=== PATIENT | female | born 1965 | race Caucasian/White ===

== ENCOUNTER 2019-04-29 14:00 | Inpatient (IN) | payer BC, OTHER ==
[~2019-04-29] VITALS: Ht 157.5 cm; Wt 66.4 kg
[2019-04-29 14:29] LABS: BASO # 0.1 x10^3/uL (0.0-0.2); BASO % 1 % (0-3); EOS # 0.1 x10^3/uL (0.0-0.7); EOS % 1 % (0-3); HEMATOCRIT 38.1 % (36.0-47.0); HEMOGLOBIN 12.5 g/dL (12.0-15.5); LYMPH # 1.7 x10^3/uL (1.0-4.8); LYMPH % 23 % (24-48); MEAN CORPUSCULAR HEMOGLOBIN 27 pg (25-35); MEAN CORPUSCULAR HGB CONC 33 g/dL (31-37); MEAN CORPUSCULAR VOLUME 81 fL (79-100); MONO # 0.5 x10^3/uL (0.0-1.1); MONO % 7 % (0-9); NEUT # 4.9 x10^3/uL (1.8-7.7); NEUT % 68 % (31-73); PLATELET COUNT 318 x10^3/uL (140-400); RED BLOOD COUNT 4.73 x10^6/uL (3.50-5.40); RED CELL DISTRIBUTION WIDTH 17.3 % (11.5-14.5); WHITE BLOOD COUNT 7.2 x10^3/uL (4.0-11.0)
[2019-04-29] MEDS ORDERED: ASPIRIN 325 MG TABLET PO ONE (14:30)
[2019-04-29] MEDS ORDERED: NITROGLYCERIN SUBLINGUAL 0.4 MG BOTTLE OF 25. SL PRN (14:30)
[2019-04-29] MEDS ORDERED: MORPHINE SULFATE 4 MG/ML VIAL. IV/SQ PRN (14:30)
[2019-04-29] MEDS ORDERED: FAMOTIDINE 20 MG/2 ML VIAL IVP ONE (14:30)
[2019-04-29 14:45] LABS: CALCIUM 9.5 mg/dL (8.5-10.1); CREATININE 0.9 mg/dL (0.6-1.0); GFR 65.5; POTASSIUM 3.7 mmol/L (3.5-5.1)
[2019-04-29 14:46] LABS: PROTHROMBIN TIME PATIENT 12.9 SEC (11.7-14.0)
[2019-04-29 14:52] LABS: ALBUMIN 4.4 g/dL (3.4-5.0); ALBUMIN/GLOBULIN RATIO 1.1 (1.0-1.7); MAGNESIUM 2.3 mg/dL (1.8-2.4); TOTAL BILIRUBIN 0.5 mg/dL (0.2-1.0); TOTAL PROTEIN 8.3 g/dL (6.4-8.2)
[2019-04-29] MEDS ORDERED: LABETALOL 20 MG/4 ML DISP.SYRIN. IVP ONE (15:00)
[2019-04-29] MEDS ORDERED: cloNIDine HCL 0.1 MG TABLET PO ONE (15:00)
--- NOTE | 2019-04-29 15:01 | RAD ---
INDICATION: Chest pain COMPARISON: January 19, 2005 FINDINGS: Single view of chest obtained. Cardiac silhouette is similar to prior. Calcified nodule in the left midlung is again seen. Could be calcified granuloma. No new region of consolidation. IMPRESSION: * No focal airspace consolidation or edema. Electronically signed by: Taiwo Dominguez MD (04/29/2019 2:58 PM) [facility] – [place]
[2019-04-29 15:08] LABS: BILIRUBIN,URINE NEGATIVE (NEG); CLARITY,URINE CLEAR; COLOR,URINE YELLOW; NITRITE,URINE NEGATIVE (NEG); PROTEIN,URINE NEGATIVE (NEG-TRACE); UROBILINOGEN,URINE 0.2 mg/dL (0.2 mg/dL)
--- NOTE | 2019-04-29 15:20 | RAD ---
INDICATION: High blood pressure COMPARISON: None. TECHNIQUE: Axial CT images obtained through the head without intravenous contrast. One or more of the following individualized dose reduction techniques were utilized for this examination: 1. Automated exposure control; 2. Adjustment of the mA and/or kV according to patient size; 3. Use of iterative reconstruction technique. FINDINGS: No intracranial hemorrhage. No midline shift. Basal cisterns patent. Ventricles and sulci are unremarkable. No acute osseous abnormality. Orbits and paranasal sinuses unremarkable. IMPRESSION: * No acute intracranial hemorrhage. Electronically signed by: Taiwo Dominguez MD (04/29/2019 3:17 PM) [facility] [place]
[2019-04-29 15:22] LABS: BARBITURATES NEG (NEG); BENZODIAZEPINES NEG (NEG); CANNABINOIDS NEG (NEG); COCAINE NEG (NEG); METHADONE NEG (NEG); OPIATES NEG (NEG); PHENCYCLIDINE NEG (NEG)
[2019-04-29 15:23] LABS: AMPHETAMINE/METHAMPHETAMINE NEG (NEG)
[2019-04-29 15:26] LABS: HYALINE CASTS, URINE FEW /HPF; SQUAMOUS EPITHELIAL CELL,UR MOD /LPF
[2019-04-29 15:27] LABS: AMORPHOUS SEDIMENT,UR PRESENT /HPF; BACTERIA,URINE 0 /HPF (0-FEW)
--- NOTE | 2019-04-29 15:32 | PHYS DOC ---
Past Medical History Past Medical History: No Pertinent History, GERD, Hypertension Past Surgical History: Tubal ligation Smoking Status: Current Every Day Smoker Additional Information: 1 ppd Alcohol Use: Heavy Additional Information: reports drinking 12 pack beer per week Drug Use: None Adult General Chief Complaint Chief Complaint: CHEST PAIN HPI HPI Patient is a 53 year old female with a history of self diagnosed acid reflex, hypertension-uncontrolled, hypertension, who presents to the ED today complaining of 2 out of 10 substernal chest pain radiating to bilateral chest into the left neck, symptoms began yesterday. Patient reports it felt like a grabbing pain, she states she took hzhm-fyg-[id number] antiacids with no relief. Patient reports symptoms are worse on exertion. Denies anything specifically relieving the symptoms. 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 Review of Systems Review of Systems Constitutional: Denies fever or chills [] Eyes: Denies change in visual acuity, redness, or eye pain [] HENT: Denies nasal congestion or sore throat [] Respiratory: Denies cough or shortness of breath [] Cardiovascular: Reports chest pain. GI: Denies abdominal pain, nausea, vomiting, bloody stools or diarrhea [] : Denies dysuria or hematuria [] Musculoskeletal: Denies back pain or joint pain [] Integument: Denies rash or skin lesions [] Neurologic: Denies headache, focal weakness or sensory changes [] All other systems were reviewed and found to be within normal limits, except as documented in this note. Current Medications Current Medications Current Medications Medications (Trade) Dose Ordered Sig/Maureen Start Time Stop Time Status Last Admin Dose Admin Aspirin (Agustin Aspirin) 325 mg 1X ONCE 04/29/19 14:30 04/29/19 14:32 DC 04/29/19 14:32 325 MG Clonidine HCl (Catapres) 0.2 mg 1X ONCE 04/29/19 15:00 04/29/19 15:01 DC 04/29/19 14:50 0.2 MG Famotidine (Pepcid Vial) 20 mg 1X ONCE 04/29/19 14:30 04/29/19 14:32 DC 04/29/19 14:32 20 MG Labetalol HCl (Normodyne Iv Push) 10 mg 1X ONCE 04/29/19 15:00 04/29/19 15:01 DC 04/29/19 14:51 10 MG Morphine Sulfate (Morphine Sulfate) 4 mg PRN Q15MIN PRN 04/29/19 14:30 04/30/19 14:29 Nitroglycerin (Nitrostat) 0.4 mg PRN Q5MIN PRN 04/29/19 14:30 04/30/19 14:29 04/29/19 14:33 0.4 MG Allergies Allergies Allergies Coded Allergies Type Severity Reaction Last Updated Verified No Known Drug Allergies 04/29/19 No Physical Exam Physical Exam Constitutional: Well developed, well nourished, no acute distress, non-toxic appearance. [] HENT: Normocephalic, atraumatic, bilateral external ears normal, oropharynx moist, no oral exudates, nose normal. [] Eyes: PERRLA, EOMI, conjunctiva normal, no discharge. [] Neck: Normal range of motion, no tenderness, supple, no stridor. [] Cardiovascular:Heart rate regular rhythm, no murmur [] Lungs & Thorax: Bilateral breath sounds clear to auscultation [] Abdomen: Bowel sounds normal, soft, no tenderness, no masses, no pulsatile masses. [] Skin: Warm, dry, no erythema, no rash. [] Back: No tenderness, no CVA tenderness. [] Extremities: No tenderness, no cyanosis, no clubbing, ROM intact, no edema. [] Neurologic: Alert and oriented X 3, normal motor function, normal sensory function, no focal deficits noted. [] Psychologic: Affect normal, judgement normal, mood normal. [] Current Patient Data Vital Signs Vital Signs Date Time Temp Pulse Resp B/P (MAP) Pulse Ox O2 Delivery O2 Flow Rate FiO2 04/29/19 15:27 58 15 157/77 (103) 97 Room Air 04/29/19 14:05 98.0 98.0 Lab Values Laboratory Tests Test 04/29/19 14:20 04/29/19 14:57 White Blood Count 7.2 x10^3/uL (4.0-11.0) Red Blood Count 4.73 x10^6/uL (3.50-5.40) Hemoglobin 12.5 g/dL (12.0-15.5) Hematocrit 38.1 % (36.0-47.0) Mean Corpuscular Volume 81 fL (79-100) Mean Corpuscular Hemoglobin 27 pg (25-35) Mean Corpuscular Hemoglobin Concent 33 g/dL (31-37) Red Cell Distribution Width 17.3 % (11.5-14.5) H Platelet Count 318 x10^3/uL (140-400) Neutrophils (%) (Auto) 68 % (31-73) Lymphocytes (%) (Auto) 23 % (24-48) L Monocytes (%) (Auto) 7 % (0-9) Eosinophils (%) (Auto) 1 % (0-3) Basophils (%) (Auto) 1 % (0-3) Neutrophils # (Auto) 4.9 x10^3/uL (1.8-7.7) Lymphocytes # (Auto) 1.7 x10^3/uL (1.0-4.8) Monocytes # (Auto) 0.5 x10^3/uL (0.0-1.1) Eosinophils # (Auto) 0.1 x10^3/uL (0.0-0.7) Basophils # (Auto) 0.1 x10^3/uL (0.0-0.2) Prothrombin Time 12.9 SEC (11.7-14.0) Prothrombin Time INR 1.0 (0.8-1.1) Sodium Level 139 mmol/L (136-145) Potassium Level 3.7 mmol/L (3.5-5.1) Chloride Level 101 mmol/L (98-107) Carbon Dioxide Level 25 mmol/L (21-32) Anion Gap 13 (6-14) Blood Urea Nitrogen 8 mg/dL (7-20) Creatinine 0.9 mg/dL (0.6-1.0) Estimated GFR (Cockcroft-Gault) 65.5 BUN/Creatinine Ratio 9 (6-20) Glucose Level 121 mg/dL (70-99) H Calcium Level 9.5 mg/dL (8.5-10.1) Magnesium Level 2.3 mg/dL (1.8-2.4) Total Bilirubin 0.5 mg/dL (0.2-1.0) Aspartate Amino Transferase (AST) 41 U/L (15-37) H Alanine Aminotransferase (ALT) 45 U/L (14-59) Alkaline Phosphatase 112 U/L (46-116) Creatine Kinase 208 U/L (26-192) H Creatine Kinase MB (Mass) 1.4 ng/mL (0.0-3.6) Creatine Kinase MB Relative Index 0.7 % (0-4) Troponin I Quantitative 0.025 ng/mL (0.000-0.055) IY-Fzd-G-Type Natriuretic Peptide 486 pg/mL (0-124) H Total Protein 8.3 g/dL (6.4-8.2) H Albumin 4.4 g/dL (3.4-5.0) Albumin/Globulin Ratio 1.1 (1.0-1.7) Thyroid Stimulating Hormone (TSH) 38.951 uIU/mL (0.358-3.74) H Urine Collection Type Unknown Urine Color Yellow Urine Clarity Clear Urine pH 7.0 Urine Specific [place] <=1.005 Urine Protein Negative mg/dL (NEG-TRACE) Urine Glucose (UA) Negative mg/dL (NEG) Urine Ketones (Stick) Negative mg/dL (NEG) Urine Blood Negative (NEG) Urine Nitrite Negative (NEG) Urine Bilirubin Negative (NEG) Urine Urobilinogen Dipstick 0.2 mg/dL (0.2 mg/dL) Urine Leukocyte Esterase Negative (NEG) Urine RBC 1-2 /HPF (0-2) Urine WBC 1-4 /HPF (0-4) Urine Squamous Epithelial Cells Mod /LPF Urine Amorphous Sediment Present /HPF Urine Bacteria 0 /HPF (0-FEW) Urine Hyaline Casts Few /HPF Urine Mucus Slight /LPF Urine Opiates Screen Neg (NEG) Urine Methadone Screen Neg (NEG) Urine Barbiturates Neg (NEG) Urine Phencyclidine Screen Neg (NEG) Urine Amphetamine/Methamphetamine Neg (NEG) Urine Benzodiazepines Screen Neg (NEG) Urine Cocaine Screen Neg (NEG) Urine Cannabinoids Screen Neg (NEG) Urine Ethyl Alcohol Neg (NEG) Laboratory Tests 04/29/19 14:20 Laboratory Tests 04/29/19 14:20 EKG EKG [address] Dilma francisco [facility] HR 65 no STEMI[] Radiology/Procedures Radiology/Procedures []PROCEDURE: CT HEAD WO CONTRAST INDICATION: High blood pressure COMPARISON: None. TECHNIQUE: Axial CT images obtained through the head without intravenous contrast. One or more of the following individualized dose reduction techniques were utilized for this examination: 1. Automated exposure control; 2. Adjustment of the mA and/or kV according to patient size; 3. Use of iterative reconstruction technique. FINDINGS: No intracranial hemorrhage. No midline shift. Basal cisterns patent. Ventricles and sulci are unremarkable. No acute osseous abnormality. Orbits and paranasal sinuses unremarkable. IMPRESSION: * No acute intracranial hemorrhage. Electronically signed by: Spike Gama MD (04/29/2019 3:17 PM) [facility] – [place] DICTATED and SIGNED BY: SPIKE GAMA MD DATE: 04/29/19 7667 PROCEDURE: PORTABLE CHEST 1V INDICATION: Chest pain COMPARISON: January 19, 2005 FINDINGS: Single view of chest obtained. Cardiac silhouette is similar to prior. Calcified nodule in the left midlung is again seen. Could be calcified granuloma. No new region of consolidation. IMPRESSION: * No focal airspace consolidation or edema. Electronically signed by: Spike Gama MD (04/29/2019 2:58 PM) [facility] [place] DICTATED and SIGNED BY: SPIKE GAMA MD DATE: 04/29/19 1478 Course & Med Decision Making Course & Med Decision Making Pertinent Labs and Imaging studies reviewed. (See chart for details) This is a 65-year-old female patient presenting to the ED today with complaints of chest pain that began yesterday. Patient is a smoker, advised to consider smoking cessation. Patient arrives in the ED with blood pressure of 252/117 with a heart rate of 66, hx of hypertension but not on any medications. CT of the head is negative, chest x-ray is negative. Cardiac workup is essentially negative. TSH 38.951. Patient was given nitroglycerin, labetalol and clonidine. Blood pressures come down to 150/77. Spoke with Annel TUCKER for cardiology who will follow-up with patient. Spoke with Dr. Celeste who accepted patient for admission Dragon Disclaimer Dragon Disclaimer This electronic medical record was generated, in whole or in part, using a voice recognition dictation system. The HEART Score for CP Pts HEART Score for Chest Pain: HEART Score for Chest Pain Response (Comments) Value History Slighlty/Non-Suspicious 0 ECG Normal 0 Age >45 - < 65 1 Risk Factors 1 or 2 Risk Factors 1 Troponin < Normal Limit 0 Total 2 Risk Factors: Risk Factors: DM, Current or recent (<one month) smoker, HTN, HLP, family history of CAD, obesity. Risk Scores: Score 0 - 3: 2.5% MACE over next 6 weeks - Discharge Home Score 4 - 6: 20.3% MACE over next 6 weeks - Admit for Clinical Observation Score 7 - 10: 72.7% MACE over next 6 weeks - Early Invasive Strategies Departure Departure Impression: Primary Impression: Chest pain Additional Impressions: Smoking addiction Hypothyroidism Accelerated hypertension Disposition: 09 ADMITTED INPATIENT Condition: STABLE Referrals: NO PCP (PCP) Problem Qualifiers Primary Impression: Chest pain Chest pain type: unspecified Qualified Codes: R07.9 - Chest pain, unspecified Additional Impressions: Hypothyroidism Hypothyroidism type: unspecified Qualified Codes: E03.9 - Hypothyroidism, unspecified SHERYL FERGUSON CONTACT ASSEMBLER Apr 29, 2019 15:32
--- NOTE | 2019-04-29 15:33 | PDOC1 ---
History and Physical Date of Admission Date of Admission DATE: 04/29/19 TIME: 15:33 Identification/Chief Complaint Chief Complaint seen in er with chest pain, 53 year old female with a history of self diagnosed acid reflex, hypertension-uncontrolled, hypertension, presents to the ED today complaining of 2 out of 10 substernal chest pain radiating to bilateral chest into the left neck, symptoms began yesterday. she states she took polm-zhn-rriwrqo antiacids with no relief. symptoms are worse on exertion. Denies anything specifically relieving the s ymptoms. troponin i elevated, started on heparin drip protocol in ER Past Medical History Past Medical History Past Medical History Past Medical History: No Pertinent History, GERD, Hypertension Past Surgical History: Tubal ligation Smoking Status: Current Every Day Smoker Additional Information: 1 ppd Alcohol Use: Heavy Additional Information: reports drinking 12 pack beer per week Drug Use: None FHX HTN Cardiovascular: HTN Psych: Addictions Family History Family History younger brother had CABG Family History: Heart Disease, High Cholestrol, Hypertension Social History Smoke: 1 pack per day ALCOHOL: heavy Drugs: None Current Problem List Problem List Problems Medical Problems: (1) Chest pain Status: Acute Current Medications Current Medications Current Medications Aspirin (Agustin Aspirin) 325 mg 1X ONCE PO Last administered on 04/29/19at 14:32; Start 04/29/19 at 14:30; Stop 04/29/19 at 14:32; Status DC Nitroglycerin (Nitrostat) 0.4 mg PRN Q5MIN PRN SL CP RATING > 1/10 Last administered on 04/29/19at 14:33; Start 04/29/19 at 14:30; Stop 04/30/19 at 14:29 Morphine Sulfate (Morphine Sulfate) 4 mg PRN Q15MIN PRN IV/SQ PAIN GREATER THAN 3/10; Start 04/29/19 at 14:30; Stop 04/30/19 at 14:29 Famotidine (Pepcid Vial) 20 mg 1X ONCE IVP Last administered on 04/29/19at 14:32; Start 04/29/19 at 14:30; Stop 04/29/19 at 14:32; Status DC Labetalol HCl (Normodyne Iv Push) 10 mg 1X ONCE IVP Last administered on 04/29/19at 14:51; Start 04/29/19 at 15:00; Stop 04/29/19 at 15:01; Status DC Clonidine HCl (Catapres) 0.2 mg 1X ONCE PO Last administered on 04/29/19at 14:50; Start 04/29/19 at 15:00; Stop 04/29/19 at 15:01; Status DC Allergies Allergies: Coded Allergies: No Known Drug Allergies (Unverified , 04/29/19) ROS Review of System Review of Systems Review of Systems Constitutional: Denies fever or chills [] Eyes: Denies change in visual acuity, redness, or eye pain [] HENT: Denies nasal congestion or sore throat [] Respiratory: Denies cough or shortness of breath [] Cardiovascular: Reports chest pain. GI: Denies abdominal pain, nausea, vomiting, bloody stools or diarrhea [] : Denies dysuria or hematuria [] Musculoskeletal: Denies back pain or joint pain [] Integument: Denies rash or skin lesions [] Neurologic: Denies headache, focal weakness or sensory changes [] 14 pt systems were reviewed and found to be within normal limits, except as documented . Eyes: No Blurry vision, No Decreased vision, No Double vision, No Dry eyes, No Excessive tearing, No Eye Pain, No Itchy Eyes, No Loss of vision, No Photophobia, No Scotomata, No Uses contacts, No Uses glasses, No Other Hematological and Lymphatic: No: Bleeding Problems, Blood Clots, Blood Transfusions, Brusing, Night Sweats, Pallor, Swollen Lymph Nodes, Other Respiratory: No: Cough, Hemoptysis, Orthopnea, Pleuritic Pain, Shortness of breath, SOB with excertion, Sputum Changes, Stridor, Tachypnea, Wheezing, Other Cardiovascular: yes Chest Pain; No Palpitations, No Orthopnea, No Paroxysmal Noc. Dyspnea, No Edema, No Lt Headedness, No Other Gastrointestinal: No Nausea, No Vomiting, No Abdominal Pain, No Diarrhea, No Constipation, No Melena, No Hematochezia, No Other Physical Exam Physical Exam Physical Exam Physical Exam Constitutional: Well developed, well nourished, no acute distress, non-toxic appearance. [] HENT: Normocephalic, atraumatic, bilateral external ears normal, oropharynx m oist, no oral exudates, nose normal. [] Eyes: PERRLA, EOMI, conjunctiva normal, no discharge. [] Neck: Normal range of motion, no tenderness, supple, no stridor. [] Cardiovascular:Heart rate regular rhythm, no murmur [] Lungs & Thorax: Bilateral breath sounds clear to auscultation [] Abdomen: Bowel sounds normal, soft, no tenderness, no masses, no pulsatile masses. [] Skin: Warm, dry, no erythema, no rash. [] Back: No tenderness, no CVA tenderness. [] Extremities: No tenderness, no cyanosis, no clubbing, ROM intact, no edema. [] Neurologic: Alert and oriented X 3, normal motor function, normal sensory function, no focal deficits noted. [] Psychologic: Affect normal, judgement normal, mood normal. [] General: Alert, Oriented X3, Cooperative, No acute distress HEENT: Atraumatic, EOMI, Mucous membr. moist/pink Lungs: Clear to auscultation Heart: RRR Breasts: Not examined Abdomen: Normal bowel sounds, Soft Rectal Exam: not examined PELVIC: Examination not indicated Extremities: No cyanosis Neuro: Normal speech, Cranial nerves 3-12 NL Psych/Mental Status: Mental status NL, Mood NL Vitals Vitals Vital Signs Date Time Temp Pulse Resp B/P (MAP) Pulse Ox O2 Delivery O2 Flow Rate FiO2 04/29/19 15:27 58 15 157/77 (103) 97 Room Air 04/29/19 14:05 98.0 98.0 Labs Labs Laboratory Tests Test 04/29/19 14:20 04/29/19 14:57 White Blood Count 7.2 x10^3/uL (4.0-11.0) Red Blood Count 4.73 x10^6/uL (3.50-5.40) Hemoglobin 12.5 g/dL (12.0-15.5) Hematocrit 38.1 % (36.0-47.0) Mean Corpuscular Volume 81 fL (79-100) Mean Corpuscular Hemoglobin 27 pg (25-35) Mean Corpuscular Hemoglobin Concent 33 g/dL (31-37) Red Cell Distribution Width 17.3 % (11.5-14.5) Platelet Count 318 x10^3/uL (140-400) Neutrophils (%) (Auto) 68 % (31-73) Lymphocytes (%) (Auto) 23 % (24-48) Monocytes (%) (Auto) 7 % (0-9) Eosinophils (%) (Auto) 1 % (0-3) Basophils (%) (Auto) 1 % (0-3) Neutrophils # (Auto) 4.9 x10^3/uL (1.8-7.7) Lymphocytes # (Auto) 1.7 x10^3/uL (1.0-4.8) Monocytes # (Auto) 0.5 x10^3/uL (0.0-1.1) Eosinophils # (Auto) 0.1 x10^3/uL (0.0-0.7) Basophils # (Auto) 0.1 x10^3/uL (0.0-0.2) Prothrombin Time 12.9 SEC (11.7-14.0) Prothromb Time International Ratio 1.0 (0.8-1.1) Sodium Level 139 mmol/L (136-145) Potassium Level 3.7 mmol/L (3.5-5.1) Chloride Level 101 mmol/L (98-107) Carbon Dioxide Level 25 mmol/L (21-32) Anion Gap 13 (6-14) Blood Urea Nitrogen 8 mg/dL (7-20) Creatinine 0.9 mg/dL (0.6-1.0) Estimated GFR (Cockcroft-Gault) 65.5 BUN/Creatinine Ratio 9 (6-20) Glucose Level 121 mg/dL (70-99) Calcium Level 9.5 mg/dL (8.5-10.1) Magnesium Level 2.3 mg/dL (1.8-2.4) Total Bilirubin 0.5 mg/dL (0.2-1.0) Aspartate Amino Transf (AST/SGOT) 41 U/L (15-37) Alanine Aminotransferase (ALT/SGPT) 45 U/L (14-59) Alkaline Phosphatase 112 U/L (46-116) Creatine Kinase 208 U/L (26-192) Creatine Kinase MB (Mass) 1.4 ng/mL (0.0-3.6) Creatine Kinase MB Relative Index 0.7 % (0-4) Troponin I Quantitative 0.025 ng/mL (0.000-0.055) VD-Mpo-K-Type Natriuretic Peptide 486 pg/mL (0-124) Total Protein 8.3 g/dL (6.4-8.2) Albumin 4.4 g/dL (3.4-5.0) Albumin/Globulin Ratio 1.1 (1.0-1.7) Thyroid Stimulating Hormone (TSH) 38.951 uIU/mL (0.358-3.74) Urine Collection Type Unknown Urine Color Yellow Urine Clarity Clear Urine pH 7.0 Urine Specific [place] <=1.005 Urine Protein Negative mg/dL (NEG-TRACE) Urine Glucose (UA) Negative mg/dL (NEG) Urine Ketones (Stick) Negative mg/dL (NEG) Urine Blood Negative (NEG) Urine Nitrite Negative (NEG) Urine Bilirubin Negative (NEG) Urine Urobilinogen Dipstick 0.2 mg/dL (0.2 mg/dL) Urine Leukocyte Esterase Negative (NEG) Urine RBC 1-2 /HPF (0-2) Urine WBC 1-4 /HPF (0-4) Urine Squamous Epithelial Cells Mod /LPF Urine Amorphous Sediment Present /HPF Urine Bacteria 0 /HPF (0-FEW) Urine Hyaline Casts Few /HPF Urine Mucus Slight /LPF Urine Opiates Screen Neg (NEG) Urine Methadone Screen Neg (NEG) Urine Barbiturates Neg (NEG) Urine Phencyclidine Screen Neg (NEG) Urine Amphetamine/Methamphetamine Neg (NEG) Urine Benzodiazepines Screen Neg (NEG) Urine Cocaine Screen Neg (NEG) Urine Cannabinoids Screen Neg (NEG) Urine Ethyl Alcohol Neg (NEG) Laboratory Tests Test 04/29/19 14:20 04/29/19 14:57 White Blood Count 7.2 x10^3/uL (4.0-11.0) Red Blood Count 4.73 x10^6/uL (3.50-5.40) Hemoglobin 12.5 g/dL (12.0-15.5) Hematocrit 38.1 % (36.0-47.0) Mean Corpuscular Volume 81 fL (79-100) Mean Corpuscular Hemoglobin 27 pg (25-35) Mean Corpuscular Hemoglobin Concent 33 g/dL (31-37) Red Cell Distribution Width 17.3 % (11.5-14.5) Platelet Count 318 x10^3/uL (140-400) Neutrophils (%) (Auto) 68 % (31-73) Lymphocytes (%) (Auto) 23 % (24-48) Monocytes (%) (Auto) 7 % (0-9) Eosinophils (%) (Auto) 1 % (0-3) Basophils (%) (Auto) 1 % (0-3) Neutrophils # (Auto) 4.9 x10^3/uL (1.8-7.7) Lymphocytes # (Auto) 1.7 x10^3/uL (1.0-4.8) Monocytes # (Auto) 0.5 x10^3/uL (0.0-1.1) Eosinophils # (Auto) 0.1 x10^3/uL (0.0-0.7) Basophils # (Auto) 0.1 x10^3/uL (0.0-0.2) Prothrombin Time 12.9 SEC (11.7-14.0) Prothromb Time International Ratio 1.0 (0.8-1.1) Sodium Level 139 mmol/L (136-145) Potassium Level 3.7 mmol/L (3.5-5.1) Chloride Level 101 mmol/L (98-107) Carbon Dioxide Level 25 mmol/L (21-32) Anion Gap 13 (6-14) Blood Urea Nitrogen 8 mg/dL (7-20) Creatinine 0.9 mg/dL (0.6-1.0) Estimated GFR (Cockcroft-Gault) 65.5 BUN/Creatinine Ratio 9 (6-20) Glucose Level 121 mg/dL (70-99) Calcium Level 9.5 mg/dL (8.5-10.1) Magnesium Level 2.3 mg/dL (1.8-2.4) Total Bilirubin 0.5 mg/dL (0.2-1.0) Aspartate Amino Transf (AST/SGOT) 41 U/L (15-37) Alanine Aminotransferase (ALT/SGPT) 45 U/L (14-59) Alkaline Phosphatase 112 U/L (46-116) Creatine Kinase 208 U/L (26-192) Creatine Kinase MB (Mass) 1.4 ng/mL (0.0-3.6) Creatine Kinase MB Relative Index 0.7 % (0-4) Troponin I Quantitative 0.025 ng/mL (0.000-0.055) TD-Mxn-P-Type Natriuretic Peptide 486 pg/mL (0-124) Total Protein 8.3 g/dL (6.4-8.2) Albumin 4.4 g/dL (3.4-5.0) Albumin/Globulin Ratio 1.1 (1.0-1.7) Thyroid Stimulating Hormone (TSH) 38.951 uIU/mL (0.358-3.74) Urine Collection Type Unknown Urine Color Yellow Urine Clarity Clear Urine pH 7.0 Urine Specific [place] <=1.005 Urine Protein Negative mg/dL (NEG-TRACE) Urine Glucose (UA) Negative mg/dL (NEG) Urine Ketones (Stick) Negative mg/dL (NEG) Urine Blood Negative (NEG) Urine Nitrite Negative (NEG) Urine Bilirubin Negative (NEG) Urine Urobilinogen Dipstick 0.2 mg/dL (0.2 mg/dL) Urine Leukocyte Esterase Negative (NEG) Urine RBC 1-2 /HPF (0-2) Urine WBC 1-4 /HPF (0-4) Urine Squamous Epithelial Cells Mod /LPF Urine Amorphous Sediment Present /HPF Urine Bacteria 0 /HPF (0-FEW) Urine Hyaline Casts Few /HPF Urine Mucus Slight /LPF Urine Opiates Screen Neg (NEG) Urine Methadone Screen Neg (NEG) Urine Barbiturates Neg (NEG) Urine Phencyclidine Screen Neg (NEG) Urine Amphetamine/Methamphetamine Neg (NEG) Urine Benzodiazepines Screen Neg (NEG) Urine Cocaine Screen Neg (NEG) Urine Cannabinoids Screen Neg (NEG) Urine Ethyl Alcohol Neg (NEG) VTE Prophylaxis Ordered VTE Prophylaxis Devices: No VTE Pharmacological Prophylaxi: Yes Assessment/Plan Assessment/Plan Impression: Chest pain, UNSTABLE ANGINA ALCOHOL ABUSE HX Smoking addiction/ TOBACCO ABUSE Hypothyroidism Accelerated hypertension elevated troponin i family hx premature CAD ADMITTED IV BP CONTROL Serial troponin i consult cardiology smoking cessation education provided heparin drip dvt prophylaxis ALCOHOL WITHDRAWAL precautions 34 min cc time YOBANI SCRUGGS MD Apr 29, 2019 15:33
--- NOTE | 2019-04-29 15:36 | EKG ---
[facility] [address] [place] [address] Test Date: 2019-04-29 Test Time: 14:07:31 Pat Name: KATHERYN BORRERO Department: Room: Gender: F Resource Room Teacher: : 1965 Requested By: SHERYL FERGUSON Order Number: [id number] Reading MD: Satnam Morales MD Measurements Intervals [place] Rate: 65 P: NE: QRS: 61 QRSD: 86 T: -37 QT: 412 QTc: 434 Interpretive Statements SR [facility] MILD ANTEROLATERAL ST SEGMENT CHANGES Electronically Signed On 04-30-2019 9:58:52 PLUMBER GASFITTER by Satnam Morales MD
[2019-04-29] MEDS ORDERED: NICOTINE 21MG PATCH. TD STA (15:52)
[2019-04-29] MEDS ORDERED: ONDANSETRON PF 4 MG/2 ML VIAL. IV PRN ×2 (16:00→20:45)
[2019-04-29] MEDS ORDERED: HEPARIN 25,000UTS/250ML PREMIX 250 ML IV PRN (18:45)
[2019-04-29] MEDS ORDERED: HEPARIN for IV BOLUS 10,000 UNIT/10 ML VIAL. IV PRN (18:45)
[2019-04-29] MEDS ORDERED: LORazepam 1 MG TABLET PO PRN ×2 (20:45)
[2019-04-29] MEDS ORDERED: MAG HYDROX/ALUMINUM HYD/SIMETH 30 ML ORAL.SUSP PO PRN (20:45)
[2019-04-29] MEDS ORDERED: guaiFENesin ORAL 200 MG/10 ML LIQUID. PO PRN (20:45)
[2019-04-29] MEDS ORDERED: ACETAMINOPHEN 325 MG TABLET. PO PRN (20:45)
[2019-04-29] MEDS ORDERED: HALOPERIDOL LACTATE 5 MG/ML VIAL. IVP PRN (20:45)
[2019-04-29] MEDS ORDERED: DOCUSATE SODIUM 100 MG CAPSULE. PO PRN (20:45)
[2019-04-29] MEDS ORDERED: SODIUM PHOSPHATES 19/7GM 133 ML ENEMA. PR PRN (20:45)
[2019-04-29] MEDS ORDERED: 0.9 % SODIUM CHLORIDE 10 ML DISP.SYRIN. IV PRN (20:45)
[2019-04-29 20:50] VITALS: BP 160/85
[2019-04-29] MEDS: FOLIC ACID 1 MG TABLET. PO SCH (21:34)
[2019-04-29] MEDS: MULTIVITAMIN with MINERAL TABLET. PO SCH (21:34)
[2019-04-29] MEDS: THIAMINE 100 MG TABLET. PO SCH (21:34)
[2019-04-29] MEDS: CALCIUM CARBONATE 500 MG TAB.CHEW PO PRN (23:00)
[2019-04-29] MEDS: MORPHINE SULFATE 2 MG/ML VIAL. IV PRN (23:01)
[2019-04-29 23:50] VITALS: BP 197/101
[2019-04-30] VITALS (7 sets, daily range): BP systolic 117–207; BP diastolic 56–97
[2019-04-30] MEDS ORDERED: IPRATRPIUM/ALBUTEROL 0.5/2.5MG 3 ML NEBU. NEB SCH
[2019-04-30] MEDS: MORPHINE SULFATE 2 MG/ML VIAL. IV PRN ×4 (03:04→23:17)
[2019-04-30] MEDS: CALCIUM CARBONATE 500 MG TAB.CHEW PO PRN ×2 (03:04→07:52)
[2019-04-30 03:37] LABS: HEMATOCRIT 34.3 % (36.0-47.0); HEMOGLOBIN 11.3 g/dL (12.0-15.5); RED BLOOD COUNT 4.23 x10^6/uL (3.50-5.40); RED CELL DISTRIBUTION WIDTH 17.4 % (11.5-14.5); WHITE BLOOD COUNT 6.2 x10^3/uL (4.0-11.0)
[2019-04-30 03:48] LABS: CALCIUM 9.1 mg/dL (8.5-10.1)
[2019-04-30 06:45] LABS: CHOLESTEROL/HDL RATIO 7.3
[2019-04-30] MEDS ORDERED: PANTOPRAZOLE IV PUSH 40 MG VIAL. IVP SCH (07:30)
[2019-04-30] MEDS ORDERED: ANTI-COAG MONITOR BY PHARMACY. MC PRN (07:45)
[2019-04-30] MEDS: LEVOTHYROXINE 25 MCG TABLET. PO SCH (07:52)
[2019-04-30] MEDS: IPRATRPIUM/ALBUTEROL 0.5/2.5MG 3 ML NEBU. NEB SCH ×4 (07:59→20:11)
[2019-04-30] MEDS ORDERED: hydrALAZINE 20 MG/ML VIAL. IVP PRN (09:00)
[2019-04-30] MEDS: amLODIPine BESYLATE 10 MG TABLET PO SCH (09:33)
[2019-04-30] MEDS: NITROGLYCERIN SUBLINGUAL 0.4 MG BOTTLE OF 25. SL PRN ×2 (10:08→14:08)
--- NOTE | 2019-04-30 10:16 | PDOC2 ---
MICHELLEJACKELYN Glover MANAGER OF INTERNAL 04/30/19 1016: CARDIAC CONSULT DATE OF CONSULT Date of Consult DATE: 04/30/19 TIME: 09:33 REASON FOR CONSULT Reason for Consult: Chest pain REFERRING PHYSICIAN Referring Physician: Adriana SOURCE Source: Chart review, Patient HISTORY OF PRESENT ILLNESS HISTORY OF PRESENT ILLNESS This is a pleasant 53 yo female admitted for complains of chest pain. Reports that since Fri she has been having intermittent chest pressure which sometimes radiates to both arms. Slight nausea at times but no vomiting. Also with throbbing WORTHY and at times flushed feeling and being sweaty. SHe takes PRN ibuprofen for pain and antacids for GERD. She has not seen a doctor for many years and no known significantl medical history. No recent respiratory infections. No recent falls or injury. Upon admission she has been noted with high BP and she continues to have some chest pressure intermittent. Her WORTHY is better after BP control but denies any focal neuro symptoms. 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 PAST MEDICAL HISTORY Past Medical History No medical hx PAST SURGICAL HISTORY Past Surgical History: Tubal Ligation FAMILY HISTORY Family History noncontributory SOCIAL HISTORY Smoke: 1 pack per day ALCOHOL: other (2-3 beers daily) Drugs: None Lives: with Family CURRENT MEDICATIONS CURRENT MEDICATIONS Current Medications Medications (Trade) Dose Ordered Sig/Maureen Route PRN Reason Start Time Stop Time Status Last Admin Dose Admin Aspirin (Agustin Aspirin) 325 mg 1X ONCE PO 04/29/19 14:30 04/29/19 14:32 DC 04/29/19 14:32 Nitroglycerin (Nitrostat) 0.4 mg PRN Q5MIN PRN SL CP RATING > 1/10 04/29/19 14:30 04/29/19 15:58 DC 04/29/19 14:33 Famotidine (Pepcid Vial) 20 mg 1X ONCE IVP 04/29/19 14:30 04/29/19 14:32 DC 04/29/19 14:32 Labetalol HCl (Normodyne Iv Push) 10 mg 1X ONCE IVP 04/29/19 15:00 04/29/19 15:01 DC 04/29/19 14:51 Clonidine HCl (Catapres) 0.2 mg 1X ONCE PO 04/29/19 15:00 04/29/19 15:01 DC 04/29/19 14:50 Morphine Sulfate (Morphine Sulfate) 2 mg PRN Q2HR PRN IV PAIN 04/29/19 16:00 04/30/19 15:59 04/30/19 07:53 Heparin Sodium/ Dextrose 250 ml @ 0 mls/hr CONT PRN IV PER PROTOCOL 04/29/19 18:45 04/29/19 19:12 Heparin Sodium (Porcine) (Heparin Sodium) 1,700 unit PRN Q6HRS PRN IV FOR UFH LEVEL LESS THAN 0.2 04/29/19 18:45 04/30/19 05:34 Multivitamins (Thera M Plus) 1 tab DAILY PO 04/29/19 21:00 04/29/19 21:34 Folic Acid (Folic Acid) 1 mg DAILY PO 04/29/19 21:00 04/29/19 21:34 Thiamine Mononitrate (Vitamin B-1) 100 mg DAILY PO 04/29/19 21:00 04/29/19 21:34 Pantoprazole Sodium (PROTONIX VIAL for IV PUSH) 40 mg DAILYAC IVP 04/30/19 07:30 04/30/19 07:53 Levothyroxine Sodium (Synthroid) 25 mcg DAILY06 PO 04/30/19 06:00 04/30/19 07:52 Calcium Carbonate/ Glycine (Tums) 500 mg PRN Q2HRS PRN PO INDIGESTION 04/29/19 22:45 04/30/19 07:52 Info (Anti-Coagulation Monitoring By Pharmacy) 1 each PRN DAILY PRN MC SEE COMMENTS 04/30/19 07:45 04/30/19 07:49 ALLERGIES ALLERGIES: Coded Allergies: No Known Drug Allergies (Unverified , 04/29/19) ROS Review of System 14 point ROS evaluated with pertinent positives noted per HPI PHYSICAL EXAM General: Alert, Oriented X3, Cooperative, No acute distress HEENT: Atraumatic, Mucous membr. moist/pink Lungs: Clear to auscultation, Normal air movement Heart: Regular rate (SR), Normal S1, Normal S2, Other (2/6 systolic murmur to LLS border) Abdomen: Soft, No tenderness Extremities: No cyanosis, No edema Skin: No breakdown, No significant lesion Neuro: Normal speech, Sensation intact Psych/Mental Status: Mental status NL, Mood NL MUSCULOSKELETAL: Osteoarthritic changes both hands VITALS/I&O VITALS/I&O: Vital Signs Date Time Temp Pulse Resp B/P (MAP) Pulse Ox O2 Delivery O2 Flow Rate FiO2 04/30/19 07:53 Room Air 04/30/19 07:00 97.3 53 207/97 (133) 97 97.3 04/29/19 23:50 20 I & O 04/29/19 04/29/19 04/30/19 15:00 23:00 07:00 Intake Total 400 ml Output Total 400 ml Balance 0 ml LABS Lab: Laboratory Tests Test 04/29/19 14:20 04/29/19 14:57 04/29/19 17:15 04/29/19 20:30 White Blood Count 7.2 x10^3/uL (4.0-11.0) Red Blood Count 4.73 x10^6/uL (3.50-5.40) Hemoglobin 12.5 g/dL (12.0-15.5) Hematocrit 38.1 % (36.0-47.0) Mean Corpuscular Volume 81 fL (79-100) Mean Corpuscular Hemoglobin 27 pg (25-35) Mean Corpuscular Hemoglobin Concent 33 g/dL (31-37) Red Cell Distribution Width 17.3 % (11.5-14.5) H Platelet Count 318 x10^3/uL (140-400) Neutrophils (%) (Auto) 68 % (31-73) Lymphocytes (%) (Auto) 23 % (24-48) L Monocytes (%) (Auto) 7 % (0-9) Eosinophils (%) (Auto) 1 % (0-3) Basophils (%) (Auto) 1 % (0-3) Neutrophils # (Auto) 4.9 x10^3/uL (1.8-7.7) Lymphocytes # (Auto) 1.7 x10^3/uL (1.0-4.8) Monocytes # (Auto) 0.5 x10^3/uL (0.0-1.1) Eosinophils # (Auto) 0.1 x10^3/uL (0.0-0.7) Basophils # (Auto) 0.1 x10^3/uL (0.0-0.2) Prothrombin Time 12.9 SEC (11.7-14.0) Prothrombin Time INR 1.0 (0.8-1.1) Sodium Level 139 mmol/L (136-145) Potassium Level 3.7 mmol/L (3.5-5.1) Chloride Level 101 mmol/L (98-107) Carbon Dioxide Level 25 mmol/L (21-32) Anion Gap 13 (6-14) Blood Urea Nitrogen 8 mg/dL (7-20) Creatinine 0.9 mg/dL (0.6-1.0) Estimated GFR (Cockcroft-Gault) 65.5 BUN/Creatinine Ratio 9 (6-20) Glucose Level 121 mg/dL (70-99) H Calcium Level 9.5 mg/dL (8.5-10.1) Magnesium Level 2.3 mg/dL (1.8-2.4) Total Bilirubin 0.5 mg/dL (0.2-1.0) Aspartate Amino Transferase (AST) 41 U/L (15-37) H Alanine Aminotransferase (ALT) 45 U/L (14-59) Alkaline Phosphatase 112 U/L (46-116) Creatine Kinase 208 U/L (26-192) H Creatine Kinase MB (Mass) 1.4 ng/mL (0.0-3.6) Creatine Kinase MB Relative Index 0.7 % (0-4) Troponin I Quantitative 0.025 ng/mL (0.000-0.055) 0.128 ng/mL (0.000-0.055) 0.044 ng/mL (0.000-0.055) EO-Rfh-C-Type Natriuretic Peptide 486 pg/mL (0-124) H Total Protein 8.3 g/dL (6.4-8.2) H Albumin 4.4 g/dL (3.4-5.0) Albumin/Globulin Ratio 1.1 (1.0-1.7) Thyroid Stimulating Hormone (TSH) 38.951 uIU/mL (0.358-3.74) H Urine Collection Type Unknown Urine Color Yellow Urine Clarity Clear Urine pH 7.0 Urine Specific [place] <=1.005 Urine Protein Negative mg/dL (NEG-TRACE) Urine Glucose (UA) Negative mg/dL (NEG) Urine Ketones (Stick) Negative mg/dL (NEG) Urine Blood Negative (NEG) Urine Nitrite Negative (NEG) Urine Bilirubin Negative (NEG) Urine Urobilinogen Dipstick 0.2 mg/dL (0.2 mg/dL) Urine Leukocyte Esterase Negative (NEG) Urine RBC 1-2 /HPF (0-2) Urine WBC 1-4 /HPF (0-4) Urine Squamous Epithelial Cells Mod /LPF Urine Amorphous Sediment Present /HPF Urine Bacteria 0 /HPF (0-FEW) Urine Hyaline Casts Few /HPF Urine Mucus Slight /LPF Urine Opiates Screen Neg (NEG) Urine Methadone Screen Neg (NEG) Urine Barbiturates Neg (NEG) Urine Phencyclidine Screen Neg (NEG) Urine Amphetamine/Methamphetamine Neg (NEG) Urine Benzodiazepines Screen Neg (NEG) Urine Cocaine Screen Neg (NEG) Urine Cannabinoids Screen Neg (NEG) Urine Ethyl Alcohol Neg (NEG) Test 04/30/19 03:30 White Blood Count 6.2 x10^3/uL (4.0-11.0) Red Blood Count 4.23 x10^6/uL (3.50-5.40) Hemoglobin 11.3 g/dL (12.0-15.5) L Hematocrit 34.3 % (36.0-47.0) L Mean Corpuscular Volume 81 fL (79-100) Mean Corpuscular Hemoglobin 27 pg (25-35) Mean Corpuscular Hemoglobin Concent 33 g/dL (31-37) Red Cell Distribution Width 17.4 % (11.5-14.5) H Platelet Count 268 x10^3/uL (140-400) Heparin Anti-Xa Act, Unfractionated 0.13 IU/mL (0.30-0.70) L Sodium Level 139 mmol/L (136-145) Potassium Level 4.0 mmol/L (3.5-5.1) Chloride Level 103 mmol/L (98-107) Carbon Dioxide Level 27 mmol/L (21-32) Anion Gap 9 (6-14) Blood Urea Nitrogen 13 mg/dL (7-20) Creatinine 1.0 mg/dL (0.6-1.0) Estimated GFR (Cockcroft-Gault) 58.0 Glucose Level 115 mg/dL (70-99) H Calcium Level 9.1 mg/dL (8.5-10.1) Triglycerides Level 187 mg/dL (0-150) H Cholesterol Level 247 mg/dL (0-200) H LDL Cholesterol, Calculated 176 mg/dL (0-100) H VLDL Cholesterol, Calculated 37 mg/dL (0-40) Non-HDL Cholesterol Calculated 213 mg/dL (0-129) H HDL Cholesterol 34 mg/dL (40-60) L Cholesterol/HDL Ratio 7.3 Laboratory Tests 04/29/19 14:20 04/30/19 03:30 Laboratory Tests 04/29/19 14:20 04/30/19 03:30 ASSESSMENT/PLAN ASSESSMENT/PLAN 1. Chest pain: UA features but could also induced by #2 2. Malignant HTN: labile initially at 253/117 3. Hypothyroidism: 33 TSH per PCP 4. HLP 5. Tobaccoism 6. ETOH misuse: 2-3 beers daily 7. GERD 8. Elevated troponin: peaked at 0.12, possibly demand mediated 9. Asymptomatic SB: lowest in the upper 40s no pauses Recommendations 1. She has not been to a physician for many years and does not take any medications. Hydralazine IV PRN. NTG SL PRN. Start on norvasc. Chlothalidone. ASA. Will start on coreg and note HR response. Will adjust per BP trend. 2. Smoking cessation and curbing ETOH use. Dietitian consult 3. Start on PPI and statin 4. Will control BP and if CP continues then will would consider LHC otherwise outpt stress test. 5. TTE, will repeat troponin DARYN JON MD 04/30/191927: CARDIAC CONSULT ASSESSMENT/PLAN ASSESSMENT/PLAN Pt. seen and examined. 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 53 y.o with chest pain in the setting of signficant HTN Echo wnl. Trop only minimally elevated Continue Bp control. plan for outpt stress testing. Thanks. JACKELYN RANDLE APRN Apr 30, 2019 10:16 DARYN JON MD Apr 30, 2019 19:28
--- NOTE | 2019-04-30 10:18 | PDOC ---
PROGRESS NOTES History of Present Illness History of Present Illness VTE Prophylaxis Ordered VTE Prophylaxis Devices: No VTE Pharmacological Prophylaxi: Yes Assessment/Plan Assessment/Plan Impression: Chest pain, UNSTABLE ANGINA ALCOHOL ABUSE HX Smoking addiction/ TOBACCO ABUSE Hypothyroidism Accelerated hypertension elevated troponin i family hx premature CAD HYPERLIPIDEMIA ADMITTED IV BP CONTROL Serial troponin i consult cardiology smoking cessation education provided heparin drip dvt prophylaxis ALCOHOL WITHDRAWAL precautions LIPITOR RX d/w RN , FAMILY IN ROOM Vitals Vitals Vital Signs Date Time Temp Pulse Resp B/P (MAP) Pulse Ox O2 Delivery O2 Flow Rate FiO2 04/30/19 10:08 55 145/76 04/30/19 08:30 Room Air 04/30/19 07:00 97.3 97 97.3 04/29/19 23:50 20 Physical Exam General: Alert, Oriented X3, Cooperative, No acute distress Heart: Regular rate (SR), Normal S1, Normal S2, Other (2/6 systolic murmur to LLS border) Abdomen: Soft, No tenderness Extremities: No cyanosis, No edema Skin: No breakdown, No significant lesion Labs LABS TDI Lateral E' P. V 6.50cm/s Medial E' P. V 8.56cm/s E/Lateral E' 10.5 E/Medial E' 7.9 Tricuspid Valve TR P. Velocity 260cm/s RAP ESTIMATE 3mmHg TR Peak Gr. 28mmHg RVSP 31mmHg Pulmonary Vein S1 Velocity 46.5cm/s S2 Velocity 31.46cm/s D2 Velocity 31.5cm/s PVa duration 148msec LEFT VENTRICLE The left ventricle is normal size. There is borderline to mild concentric left ventricular hypertrophy. The left ventricular systolic function is normal. The Ejection Fraction is 55-60%. There is normal LV segmental wall motion. The left ventricular diastolic function and filling is normal for age. RIGHT VENTRICLE The right ventricle is normal size. There is normal right ventricular wall thick ness. The right ventricular systolic function is normal. ATRIA The left atrium size is normal. The right atrium size is normal. The interatrial septum is intact with no evidence for an atrial septal defect or patent foramen ovale as noted on 2-D or Doppler imaging. AORTIC VALVE The aortic valve is normal in structure and function. Doppler and Color Flow revealed no significant aortic regurgitation. There is no significant aortic valvular stenosis. MITRAL VALVE The mitral valve is normal in structure and function. There is no evidence of mitral valve prolapse. There is no mitral valve stenosis. Doppler and Color Flow revealed no mitral valve regurgitation noted. TRICUSPID VALVE The tricuspid valve is normal in structure and function. Doppler and Color Flow revealed trace tricuspid regurgitation with an estimated PAP of 30 mmHg. There is no tricuspid valve stenosis. PULMONIC VALVE The pulmonic valve is not well visualized. Doppler and Color Flow revealed no pulmonic valvular regurgitation. GREAT VESSELS The aortic root is normal in size. The IVC is normal in size and collapses >50% with inspiration. PERICARDIAL EFFUSION There is no evidence of significant pericardial effusion. Critical Notification Critical Value: No <Conclusion> The left ventricular systolic function is normal. The Ejection Fraction is 55-60%. There is normal LV segmental wall motion. Trace tricuspid regurgitation with an estimated PAP of 30 mmHg. There is no evidence of significant pericardial effusion. Signed by : Ellen Platt, Electronically Approved : 04/30/2019 10:47:03 DICTATED and SIGNED BY: ELLEN PLATT MD DATE: 04/30/19 1042 Laboratory Tests Test 04/29/19 14:20 04/29/19 14:57 04/29/19 17:15 04/29/19 20:30 White Blood Count 7.2 x10^3/uL (4.0-11.0) Red Blood Count 4.73 x10^6/uL (3.50-5.40) Hemoglobin 12.5 g/dL (12.0-15.5) Hematocrit 38.1 % (36.0-47.0) Mean Corpuscular Volume 81 fL (79-100) Mean Corpuscular Hemoglobin 27 pg (25-35) Mean Corpuscular Hemoglobin Concent 33 g/dL (31-37) Red Cell Distribution Width 17.3 % (11.5-14.5) Platelet Count 318 x10^3/uL (140-400) Neutrophils (%) (Auto) 68 % (31-73) Lymphocytes (%) (Auto) 23 % (24-48) Monocytes (%) (Auto) 7 % (0-9) Eosinophils (%) (Auto) 1 % (0-3) Basophils (%) (Auto) 1 % (0-3) Neutrophils # (Auto) 4.9 x10^3/uL (1.8-7.7) Lymphocytes # (Auto) 1.7 x10^3/uL (1.0-4.8) Monocytes # (Auto) 0.5 x10^3/uL (0.0-1.1) Eosinophils # (Auto) 0.1 x10^3/uL (0.0-0.7) Basophils # (Auto) 0.1 x10^3/uL (0.0-0.2) Prothrombin Time 12.9 SEC (11.7-14.0) Prothromb Time International Ratio 1.0 (0.8-1.1) Sodium Level 139 mmol/L (136-145) Potassium Level 3.7 mmol/L (3.5-5.1) Chloride Level 101 mmol/L (98-107) Carbon Dioxide Level 25 mmol/L (21-32) Anion Gap 13 (6-14) Blood Urea Nitrogen 8 mg/dL (7-20) Creatinine 0.9 mg/dL (0.6-1.0) Estimated GFR (Cockcroft-Gault) 65.5 BUN/Creatinine Ratio 9 (6-20) Glucose Level 121 mg/dL (70-99) Calcium Level 9.5 mg/dL (8.5-10.1) Magnesium Level 2.3 mg/dL (1.8-2.4) Total Bilirubin 0.5 mg/dL (0.2-1.0) Aspartate Amino Transf (AST/SGOT) 41 U/L (15-37) Alanine Aminotransferase (ALT/SGPT) 45 U/L (14-59) Alkaline Phosphatase 112 U/L (46-116) Creatine Kinase 208 U/L (26-192) Creatine Kinase MB (Mass) 1.4 ng/mL (0.0-3.6) Creatine Kinase MB Relative Index 0.7 % (0-4) Troponin I Quantitative 0.025 ng/mL (0.000-0.055) 0.128 ng/mL (0.000-0.055) 0.044 ng/mL (0.000-0.055) CG-Qsx-P-Type Natriuretic Peptide 486 pg/mL (0-124) Total Protein 8.3 g/dL (6.4-8.2) Albumin 4.4 g/dL (3.4-5.0) Albumin/Globulin Ratio 1.1 (1.0-1.7) Thyroid Stimulating Hormone (TSH) 38.951 uIU/mL (0.358-3.74) Urine Collection Type Unknown Urine Color Yellow Urine Clarity Clear Urine pH 7.0 Urine Specific [place] <=1.005 Urine Protein Negative mg/dL (NEG-TRACE) Urine Glucose (UA) Negative mg/dL (NEG) Urine Ketones (Stick) Negative mg/dL (NEG) Urine Blood Negative (NEG) Urine Nitrite Negative (NEG) Urine Bilirubin Negative (NEG) Urine Urobilinogen Dipstick 0.2 mg/dL (0.2 mg/dL) Urine Leukocyte Esterase Negative (NEG) Urine RBC 1-2 /HPF (0-2) Urine WBC 1-4 /HPF (0-4) Urine Squamous Epithelial Cells Mod /LPF Urine Amorphous Sediment Present /HPF Urine Bacteria 0 /HPF (0-FEW) Urine Hyaline Casts Few /HPF Urine Mucus Slight /LPF Urine Opiates Screen Neg (NEG) Urine Methadone Screen Neg (NEG) Urine Barbiturates Neg (NEG) Urine Phencyclidine Screen Neg (NEG) Urine Amphetamine/Methamphetamine Neg (NEG) Urine Benzodiazepines Screen Neg (NEG) Urine Cocaine Screen Neg (NEG) Urine Cannabinoids Screen Neg (NEG) Urine Ethyl Alcohol Neg (NEG) Test 04/30/19 03:30 White Blood Count 6.2 x10^3/uL (4.0-11.0) Red Blood Count 4.23 x10^6/uL (3.50-5.40) Hemoglobin 11.3 g/dL (12.0-15.5) Hematocrit 34.3 % (36.0-47.0) Mean Corpuscular Volume 81 fL (79-100) Mean Corpuscular Hemoglobin 27 pg (25-35) Mean Corpuscular Hemoglobin Concent 33 g/dL (31-37) Red Cell Distribution Width 17.4 % (11.5-14.5) Platelet Count 268 x10^3/uL (140-400) Heparin Anti-Xa Act, Unfractionated 0.13 IU/mL (0.30-0.70) Sodium Level 139 mmol/L (136-145) Potassium Level 4.0 mmol/L (3.5-5.1) Chloride Level 103 mmol/L (98-107) Carbon Dioxide Level 27 mmol/L (21-32) Anion Gap 9 (6-14) Blood Urea Nitrogen 13 mg/dL (7-20) Creatinine 1.0 mg/dL (0.6-1.0) Estimated GFR (Cockcroft-Gault) 58.0 Glucose Level 115 mg/dL (70-99) Calcium Level 9.1 mg/dL (8.5-10.1) Triglycerides Level 187 mg/dL (0-150) Cholesterol Level 247 mg/dL (0-200) LDL Cholesterol, Calculated 176 mg/dL (0-100) VLDL Cholesterol, Calculated 37 mg/dL (0-40) Non-HDL Cholesterol Calculated 213 mg/dL (0-129) HDL Cholesterol 34 mg/dL (40-60) Cholesterol/HDL Ratio 7.3 Assessment and Plan Assessmemt and Plan Problems Medical Problems: (1) Accelerated hypertension Status: Acute (2) Chest pain Status: Acute (3) Hypothyroidism Status: Acute (4) Smoking addiction Status: Acute Comment Review of Relevant I have reviewed the following items britney (where applicable) has been applied. Labs Laboratory Tests Test 04/29/19 14:20 04/29/19 14:57 04/29/19 17:15 04/29/19 20:30 White Blood Count 7.2 x10^3/uL (4.0-11.0) Red Blood Count 4.73 x10^6/uL (3.50-5.40) Hemoglobin 12.5 g/dL (12.0-15.5) Hematocrit 38.1 % (36.0-47.0) Mean Corpuscular Volume 81 fL (79-100) Mean Corpuscular Hemoglobin 27 pg (25-35) Mean Corpuscular Hemoglobin Concent 33 g/dL (31-37) Red Cell Distribution Width 17.3 % (11.5-14.5) Platelet Count 318 x10^3/uL (140-400) Neutrophils (%) (Auto) 68 % (31-73) Lymphocytes (%) (Auto) 23 % (24-48) Monocytes (%) (Auto) 7 % (0-9) Eosinophils (%) (Auto) 1 % (0-3) Basophils (%) (Auto) 1 % (0-3) Neutrophils # (Auto) 4.9 x10^3/uL (1.8-7.7) Lymphocytes # (Auto) 1.7 x10^3/uL (1.0-4.8) Monocytes # (Auto) 0.5 x10^3/uL (0.0-1.1) Eosinophils # (Auto) 0.1 x10^3/uL (0.0-0.7) Basophils # (Auto) 0.1 x10^3/uL (0.0-0.2) Prothrombin Time 12.9 SEC (11.7-14.0) Prothromb Time International Ratio 1.0 (0.8-1.1) Sodium Level 139 mmol/L (136-145) Potassium Level 3.7 mmol/L (3.5-5.1) Chloride Level 101 mmol/L (98-107) Carbon Dioxide Level 25 mmol/L (21-32) Anion Gap 13 (6-14) Blood Urea Nitrogen 8 mg/dL (7-20) Creatinine 0.9 mg/dL (0.6-1.0) Estimated GFR (Cockcroft-Gault) 65.5 BUN/Creatinine Ratio 9 (6-20) Glucose Level 121 mg/dL (70-99) Calcium Level 9.5 mg/dL (8.5-10.1) Magnesium Level 2.3 mg/dL (1.8-2.4) Total Bilirubin 0.5 mg/dL (0.2-1.0) Aspartate Amino Transf (AST/SGOT) 41 U/L (15-37) Alanine Aminotransferase (ALT/SGPT) 45 U/L (14-59) Alkaline Phosphatase 112 U/L (46-116) Creatine Kinase 208 U/L (26-192) Creatine Kinase MB (Mass) 1.4 ng/mL (0.0-3.6) Creatine Kinase MB Relative Index 0.7 % (0-4) Troponin I Quantitative 0.025 ng/mL (0.000-0.055) 0.128 ng/mL (0.000-0.055) 0.044 ng/mL (0.000-0.055) IZ-Hjw-W-Type Natriuretic Peptide 486 pg/mL (0-124) Total Protein 8.3 g/dL (6.4-8.2) Albumin 4.4 g/dL (3.4-5.0) Albumin/Globulin Ratio 1.1 (1.0-1.7) Thyroid Stimulating Hormone (TSH) 38.951 uIU/mL (0.358-3.74) Urine Collection Type Unknown Urine Color Yellow Urine Clarity Clear Urine pH 7.0 Urine Specific [place] <=1.005 Urine Protein Negative mg/dL (NEG-TRACE) Urine Glucose (UA) Negative mg/dL (NEG) Urine Ketones (Stick) Negative mg/dL (NEG) Urine Blood Negative (NEG) Urine Nitrite Negative (NEG) Urine Bilirubin Negative (NEG) Urine Urobilinogen Dipstick 0.2 mg/dL (0.2 mg/dL) Urine Leukocyte Esterase Negative (NEG) Urine RBC 1-2 /HPF (0-2) Urine WBC 1-4 /HPF (0-4) Urine Squamous Epithelial Cells Mod /LPF Urine Amorphous Sediment Present /HPF Urine Bacteria 0 /HPF (0-FEW) Urine Hyaline Casts Few /HPF Urine Mucus Slight /LPF Urine Opiates Screen Neg (NEG) Urine Methadone Screen Neg (NEG) Urine Barbiturates Neg (NEG) Urine Phencyclidine Screen Neg (NEG) Urine Amphetamine/Methamphetamine Neg (NEG) Urine Benzodiazepines Screen Neg (NEG) Urine Cocaine Screen Neg (NEG) Urine Cannabinoids Screen Neg (NEG) Urine Ethyl Alcohol Neg (NEG) Test 04/30/19 03:30 White Blood Count 6.2 x10^3/uL (4.0-11.0) Red Blood Count 4.23 x10^6/uL (3.50-5.40) Hemoglobin 11.3 g/dL (12.0-15.5) Hematocrit 34.3 % (36.0-47.0) Mean Corpuscular Volume 81 fL (79-100) Mean Corpuscular Hemoglobin 27 pg (25-35) Mean Corpuscular Hemoglobin Concent 33 g/dL (31-37) Red Cell Distribution Width 17.4 % (11.5-14.5) Platelet Count 268 x10^3/uL (140-400) Heparin Anti-Xa Act, Unfractionated 0.13 IU/mL (0.30-0.70) Sodium Level 139 mmol/L (136-145) Potassium Level 4.0 mmol/L (3.5-5.1) Chloride Level 103 mmol/L (98-107) Carbon Dioxide Level 27 mmol/L (21-32) Anion Gap 9 (6-14) Blood Urea Nitrogen 13 mg/dL (7-20) Creatinine 1.0 mg/dL (0.6-1.0) Estimated GFR (Cockcroft-Gault) 58.0 Glucose Level 115 mg/dL (70-99) Calcium Level 9.1 mg/dL (8.5-10.1) Triglycerides Level 187 mg/dL (0-150) Cholesterol Level 247 mg/dL (0-200) LDL Cholesterol, Calculated 176 mg/dL (0-100) VLDL Cholesterol, Calculated 37 mg/dL (0-40) Non-HDL Cholesterol Calculated 213 mg/dL (0-129) HDL Cholesterol 34 mg/dL (40-60) Cholesterol/HDL Ratio 7.3 Laboratory Tests Test 04/29/19 14:20 04/29/19 14:57 04/29/19 17:15 04/29/19 20:30 White Blood Count 7.2 x10^3/uL (4.0-11.0) Red Blood Count 4.73 x10^6/uL (3.50-5.40) Hemoglobin 12.5 g/dL (12.0-15.5) Hematocrit 38.1 % (36.0-47.0) Mean Corpuscular Volume 81 fL (79-100) Mean Corpuscular Hemoglobin 27 pg (25-35) Mean Corpuscular Hemoglobin Concent 33 g/dL (31-37) Red Cell Distribution Width 17.3 % (11.5-14.5) Platelet Count 318 x10^3/uL (140-400) Neutrophils (%) (Auto) 68 % (31-73) Lymphocytes (%) (Auto) 23 % (24-48) Monocytes (%) (Auto) 7 % (0-9) Eosinophils (%) (Auto) 1 % (0-3) Basophils (%) (Auto) 1 % (0-3) Neutrophils # (Auto) 4.9 x10^3/uL (1.8-7.7) Lymphocytes # (Auto) 1.7 x10^3/uL (1.0-4.8) Monocytes # (Auto) 0.5 x10^3/uL (0.0-1.1) Eosinophils # (Auto) 0.1 x10^3/uL (0.0-0.7) Basophils # (Auto) 0.1 x10^3/uL (0.0-0.2) Prothrombin Time 12.9 SEC (11.7-14.0) Prothromb Time International Ratio 1.0 (0.8-1.1) Sodium Level 139 mmol/L (136-145) Potassium Level 3.7 mmol/L (3.5-5.1) Chloride Level 101 mmol/L (98-107) Carbon Dioxide Level 25 mmol/L (21-32) Anion Gap 13 (6-14) Blood Urea Nitrogen 8 mg/dL (7-20) Creatinine 0.9 mg/dL (0.6-1.0) Estimated GFR (Cockcroft-Gault) 65.5 BUN/Creatinine Ratio 9 (6-20) Glucose Level 121 mg/dL (70-99) Calcium Level 9.5 mg/dL (8.5-10.1) Magnesium Level 2.3 mg/dL (1.8-2.4) Total Bilirubin 0.5 mg/dL (0.2-1.0) Aspartate Amino Transf (AST/SGOT) 41 U/L (15-37) Alanine Aminotransferase (ALT/SGPT) 45 U/L (14-59) Alkaline Phosphatase 112 U/L (46-116) Creatine Kinase 208 U/L (26-192) Creatine Kinase MB (Mass) 1.4 ng/mL (0.0-3.6) Creatine Kinase MB Relative Index 0.7 % (0-4) Troponin I Quantitative 0.025 ng/mL (0.000-0.055) 0.128 ng/mL (0.000-0.055) 0.044 ng/mL (0.000-0.055) RO-Vbq-D-Type Natriuretic Peptide 486 pg/mL (0-124) Total Protein 8.3 g/dL (6.4-8.2) Albumin 4.4 g/dL (3.4-5.0) Albumin/Globulin Ratio 1.1 (1.0-1.7) Thyroid Stimulating Hormone (TSH) 38.951 uIU/mL (0.358-3.74) Urine Collection Type Unknown Urine Color Yellow Urine Clarity Clear Urine pH 7.0 Urine Specific [place] <=1.005 Urine Protein Negative mg/dL (NEG-TRACE) Urine Glucose (UA) Negative mg/dL (NEG) Urine Ketones (Stick) Negative mg/dL (NEG) Urine Blood Negative (NEG) Urine Nitrite Negative (NEG) Urine Bilirubin Negative (NEG) Urine Urobilinogen Dipstick 0.2 mg/dL (0.2 mg/dL) Urine Leukocyte Esterase Negative (NEG) Urine RBC 1-2 /HPF (0-2) Urine WBC 1-4 /HPF (0-4) Urine Squamous Epithelial Cells Mod /LPF Urine Amorphous Sediment Present /HPF Urine Bacteria 0 /HPF (0-FEW) Urine Hyaline Casts Few /HPF Urine Mucus Slight /LPF Urine Opiates Screen Neg (NEG) Urine Methadone Screen Neg (NEG) Urine Barbiturates Neg (NEG) Urine Phencyclidine Screen Neg (NEG) Urine Amphetamine/Methamphetamine Neg (NEG) Urine Benzodiazepines Screen Neg (NEG) Urine Cocaine Screen Neg (NEG) Urine Cannabinoids Screen Neg (NEG) Urine Ethyl Alcohol Neg (NEG) Test 04/30/19 03:30 White Blood Count 6.2 x10^3/uL (4.0-11.0) Red Blood Count 4.23 x10^6/uL (3.50-5.40) Hemoglobin 11.3 g/dL (12.0-15.5) Hematocrit 34.3 % (36.0-47.0) Mean Corpuscular Volume 81 fL (79-100) Mean Corpuscular Hemoglobin 27 pg (25-35) Mean Corpuscular Hemoglobin Concent 33 g/dL (31-37) Red Cell Distribution Width 17.4 % (11.5-14.5) Platelet Count 268 x10^3/uL (140-400) Heparin Anti-Xa Act, Unfractionated 0.13 IU/mL (0.30-0.70) Sodium Level 139 mmol/L (136-145) Potassium Level 4.0 mmol/L (3.5-5.1) Chloride Level 103 mmol/L (98-107) Carbon Dioxide Level 27 mmol/L (21-32) Anion Gap 9 (6-14) Blood Urea Nitrogen 13 mg/dL (7-20) Creatinine 1.0 mg/dL (0.6-1.0) Estimated GFR (Cockcroft-Gault) 58.0 Glucose Level 115 mg/dL (70-99) Calcium Level 9.1 mg/dL (8.5-10.1) Triglycerides Level 187 mg/dL (0-150) Cholesterol Level 247 mg/dL (0-200) LDL Cholesterol, Calculated 176 mg/dL (0-100) VLDL Cholesterol, Calculated 37 mg/dL (0-40) Non-HDL Cholesterol Calculated 213 mg/dL (0-129) HDL Cholesterol 34 mg/dL (40-60) Cholesterol/HDL Ratio 7.3 Medications Current Medications Aspirin (Agustin Aspirin) 325 mg 1X ONCE PO Last administered on 04/29/19at 14:32; Start 04/29/19 at 14:30; Stop 04/29/19 at 14:32; Status DC Nitroglycerin (Nitrostat) 0.4 mg PRN Q5MIN PRN SL CP RATING > 1/10 Last administered on 04/29/19at 14:33; Start 04/29/19 at 14:30; Stop 04/29/19 at 15:58; Status DC Morphine Sulfate (Morphine Sulfate) 4 mg PRN Q15MIN PRN IV/SQ PAIN GREATER THAN 3/10; Start 04/29/19 at 14:30; Stop 04/29/19 at 15:58; Status DC Famotidine (Pepcid Vial) 20 mg 1X ONCE IVP Last administered on 04/29/19at 14:32; Start 04/29/19 at 14:30; Stop 04/29/19 at 14:32; Status DC Labetalol HCl (Normodyne Iv Push) 10 mg 1X ONCE IVP Last administered on 04/29/19at 14:51; Start 04/29/19 at 15:00; Stop 04/29/19 at 15:01; Status DC Clonidine HCl (Catapres) 0.2 mg 1X ONCE PO Last administered on 04/29/19at 14:50; Start 04/29/19 at 15:00; Stop 04/29/19 at 15:01; Status DC Ondansetron HCl (Zofran) 4 mg PRN Q8HRS PRN IV NAUSEA/VOMITING; Start 04/29/19 at 16:00; Stop 04/30/19 at 15:59 Morphine Sulfate (Morphine Sulfate) 2 mg PRN Q2HR PRN IV PAIN Last administered on 04/30/19at 07:53; Start 04/29/19 at 16:00; Stop 04/30/19 at 15:59 Nitroglycerin (Nitrostat) 0.4 mg PRN Q5MIN PRN SL CHEST PAIN Last administered on 04/30/19at 10:08; Start 04/29/19 at 16:00; Stop 04/30/19 at 15:59 Nicotine (Nicoderm Cq 21mg) 1 patch DAILY STAT TD ; Start 04/29/19 at 15:52; Stop 04/29/19 at 15:57; Status DC Heparin Sodium/ Dextrose 250 ml @ 0 mls/hr CONT PRN IV PER PROTOCOL Last administered on 04/29/19at 19:12; Start 04/29/19 at 18:45 Heparin Sodium (Porcine) (Heparin Sodium) 1,700 unit PRN Q6HRS PRN IV FOR UFH LEVEL LESS THAN 0.2 Last administered on 04/30/19at 05:34; Start 04/29/19 at 18:45 Multivitamins (Thera M Plus) 1 tab DAILY PO Last administered on 04/29/19at 21:34; Start 04/29/19 at 21:00 Folic Acid (Folic Acid) 1 mg DAILY PO Last administered on 04/29/19at 21:34; Start 04/29/19 at 21:00 Thiamine Mononitrate (Vitamin B-1) 100 mg DAILY PO Last administered on 04/29/19at 21:34; Start 04/29/19 at 21:00 Thiamine HCl 100 mg/Dextrose 51 ml @ 100 mls/hr DAILY IV ; Start 05/04/19 at 09:00; Stop 05/08/19 at 09:31; Status UNV Lorazepam (Ativan) 4 mg PRN Q1HR PRN PO For CIWA 8-14; Start 04/29/19 at 20:45 Lorazepam (Ativan) 8 mg PRN Q1HR PRN PO For CIWA 15 or greater; Start 04/29/19 at 20:45 Lorazepam (Ativan Inj) 2 mg PRN Q1HR PRN IV For CIWA 8-14; Start 04/29/19 at 20:45 Lorazepam (Ativan Inj) 4 mg PRN Q1HR PRN IV For CIWA 15 or greater; Start 04/29/19 at 20:45 Haloperidol Lactate (Haldol Inj) 5 mg PRN Q4HRS PRN IVP Hallucinatns,Confusn,Delirium; Start 04/29/19 at 20:45 Lorazepam (Ativan Inj) 2 mg PRN Q15MIN PRN IV SEE COMMENTS; Start 04/29/19 at 20:45; Status UNV Lorazepam (Ativan Inj) 4 mg PRN Q15MIN PRN IV SEE COMMENTS; Start 04/29/19 at 20:45; Status UNV Sodium Chloride (Normal Saline Flush) 3 ml QSHIFT PRN IV AFTER MEDS AND BLOOD DRAWS; Start 04/29/19 at 20:45 Ondansetron HCl (Zofran) 4 mg PRN Q4HRS PRN IV NAUSEA/VOMITING; Start 04/29/19 at 20:45 Acetaminophen (Tylenol) 650 mg PRN Q4HRS PRN PO TEMP OVER 100.4F OR MILD PAIN; Start 04/29/19 at 20:45 Al Hydroxide/Mg Hydroxide (Mylanta Plus Xs) 30 ml PRN DAILY PRN PO HEARTBURN / GAS; Start 04/29/19 at 20:45 Sodium Monofluorophosphate (Fleet Adult) 133 ml PRN DAILY PRN IA CONSTIPATION; Start 04/29/19 at 20:45 Docusate Sodium (Colace) 100 mg PRN BID PRN PO CONSTIPATION; Start 04/29/19 at 20:45 Albuterol/ Ipratropium (Duoneb) 3 ml Q4HRS NEB ; Start 04/30/19 at 00:00; Stop 04/30/19 at 00:24; Status DC Guaifenesin (Robitussin) 200 mg PRN Q4HRS PRN PO COUGH; Start 04/29/19 at 20:45 Lorazepam (Ativan) 0.5 mg PRN Q4HRS PRN PO ANXIETY / AGITATION; Start 04/29/19 at 20:45 Pantoprazole Sodium (PROTONIX VIAL for IV PUSH) 40 mg DAILYAC IVP Last administered on 04/30/19at 07:53; Start 04/30/19 at 07:30 Levothyroxine Sodium (Synthroid) 25 mcg DAILY06 PO Last administered on 04/30/19 at 07:52; Start 04/30/19 at 06:00 Calcium Carbonate/ Glycine (Tums) 500 mg PRN Q2HRS PRN PO INDIGESTION Last administered on 04/30/19at 07:52; Start 04/29/19 at 22:45 Albuterol/ Ipratropium (Duoneb) 3 ml RTQID NEB ; Start 04/30/19 at 08:00 Info (Anti-Coagulation Monitoring By Pharmacy) 1 each PRN DAILY PRN MC SEE COMMENTS Last administered on 04/30/19at 07:49; Start 04/30/19 at 07:45 Amlodipine Besylate (Norvasc) 10 mg DAILY PO Last administered on 04/30/19at 09:33; Start 04/30/19 at 09:00 Hydralazine HCl (Apresoline Inj) 10 mg PRN Q6HRS PRN IVP SBP > 180; Start 04/30/19 at 09:00 Atorvastatin Calcium (Lipitor) 40 mg QHS PO ; Start 04/30/19 at 21:00 Carvedilol (Coreg) 6.25 mg BIDWMEALS PO ; Start 04/30/19 at 17:00; Status UNV Pantoprazole Sodium (Protonix) 40 mg 1X ONCE PO ; Start 04/30/19 at 10:15; Stop 04/30/19 at 10:16; Status UNV Pantoprazole Sodium (Protonix) 40 mg DAILYAC PO ; Start 05/01/19 at 07:30; Status UNV Aspirin (Ecotrin) 81 mg DAILYWBKFT PO ; Start 05/01/19 at 08:00; Status UNV Atorvastatin Calcium (Lipitor) 40 mg QHS PO ; Start 04/30/19 at 21:00; Status UNV Chlorthalidone (Thalitone) 25 mg DAILY PO ; Start 05/01/19 at 09:00; Status UNV Vitals/I & O Vital Sign - Last 24 Hours 04/29/19 04/29/19 04/29/19 04/29/19 14:05 14:31 14:33 14:36 Temp 98.0 98.0 Pulse 66 70 67 64 Resp 16 B/P (MAP) 252/117 (162) 221/110 (147) 221/110 203/101 (135) Pulse Ox 97 100 97 O2 Delivery Room Air Room Air Room Air 04/29/19 04/29/19 04/29/19 04/29/19 14:41 14:46 14:48 14:50 Pulse 76 68 68 66 B/P (MAP) 205/106 (139) 189/103 (131) 189/115 (139) 189/115 Pulse Ox 98 96 97 O2 Delivery Room Air Room Air Room Air 04/29/19 04/29/19 04/29/19 04/29/19 14:51 14:51 14:59 15:27 Pulse 66 72 72 58 Resp 17 15 B/P (MAP) 189/115 196/110 (138) 224/106 (145) 157/77 (103) Pulse Ox 98 97 97 O2 Delivery Room Air Room Air Room Air 04/29/19 04/29/19 04/29/19 04/29/19 15:40 15:55 16:10 16:25 Pulse 56 58 56 54 B/P (MAP) 134/63 (86) 117/66 (83) 112/65 (81) 105/68 (80) Pulse Ox 97 96 96 96 O2 Delivery Room Air Room Air Room Air Room Air 04/29/19 04/29/19 04/29/19 04/29/19 16:40 16:55 17:25 17:55 Pulse 54 54 54 56 B/P (MAP) 107/57 (74) 110/61 (77) 95/63 (74) 92/58 (69) Pulse Ox 96 97 97 96 O2 Delivery Room Air Room Air Room Air Room Air 04/29/19 04/29/19 04/29/19 04/29/19 18:25 18:55 19:14 20:07 Pulse 54 55 57 52 B/P (MAP) 97/56 (70) 96/55 (69) 97/63 (74) 117/70 (86) Pulse Ox 96 97 97 97 O2 Delivery Room Air Room Air Room Air Room Air 04/29/19 04/29/19 04/29/19 04/29/19 20:20 20:50 23:01 23:50 Temp 97.0 97.5 97.0 97.5 Pulse 60 55 Resp 18 18 20 B/P (MAP) 160/85 (110) 197/101 (133) Pulse Ox 96 97 97 O2 Delivery Room Air Room Air Room Air Room Air 04/30/19 04/30/19 04/30/19 04/30/19 00:06 03:06 07:00 07:53 Temp 97.4 97.3 97.4 97.3 Pulse 56 53 B/P (MAP) 117/74 (88) 136/71 (92) 207/97 (133) Pulse Ox 100 97 O2 Delivery Room Air Room Air Room Air 04/30/19 04/30/19 04/30/19 08:30 09:33 10:08 Pulse 55 55 B/P (MAP) 145/76 145/76 O2 Delivery Room Air Intake and Output 04/29/19 04/29/19 04/30/19 15:00 23:00 07:00 Intake Total 400 ml Output Total 400 ml Balance 0 ml YOBANI [email or web address] MD Apr 30, 2019 10:18
[2019-04-30] MEDS ORDERED: PANTOPRAZOLE 40 MG TABLET.DR. PO ONE (10:30)
--- NOTE | 2019-04-30 10:47 | CARD ---
MR#: [id number] Date of Study: 04/30/2019 Ordering Physician: YOBANI SCRUGGS, Referring Physician: YOBANI SCRUGGS, Tech: Jocelyn Brooke APPROVED REPORT EXAM: Two-dimensional and M-mode echocardiogram with Doppler and color Doppler. Other Information Quality : AverageHR: 58bpm INDICATION Chest Pain RISK FACTORS Hypertension Smoking 2D DIMENSIONS RVDd2.8 (2.9-3.5cm)Left Atrium(2D)2.8 (1.6-4.0cm) IVSd1.2 (0.7-1.1cm)Aortic Root(2D)2.7 (2.0-3.7cm) LVDd4.3 (3.9-5.9cm)LVOT Diameter1.9 (1.8-2.4cm) PWd1.1 (0.7-1.1cm)LVDs3.0 (2.5-4.0cm) FS (%) 30.6 %SV49.7 ml LVEF(%)58.4 (>50%) Aortic Valve AoV Peak Felix.148.3cm/sAoV VTI36.2cm AO Peak GR.8.8mmHgLVOT VTI 19.31cm AO Mean GR.5mmHg Mitral Valve MV E Csjgrvlr69.0cm/sMV E Peak Gr.4mmHg MV DECEL [id number] A Cvaususe37.9cm/s MV E Mean Gr.1mmHgE/A Ratio1.3 TDI Lateral E' P. V6.50cm/sMedial E' P. V8.56cm/s E/Lateral E'10.5E/Medial E'7.9 Tricuspid Valve TR P. [id number]/sRAP [id number] TR Peak Gr.89qfYiPDRG80uhPf Pulmonary Vein S1 Jizrcgre50.5cm/sS2 Shcsygep66.46cm/s D2 Gusyeell18.5cm/sPVa [id number] LEFT VENTRICLE The left ventricle is normal size. There is borderline to mild concentric left ventricular hypertroph y. The left ventricular systolic function is normal. The Ejection Fraction is 55-60%. There is normal LV segmental wall motion. The left ventricular diastolic function and filling is normal for age. RIGHT VENTRICLE The right ventricle is normal size. There is normal right ventricular wall thickness. The right ventr icular systolic function is normal. ATRIA The left atrium size is normal. The right atrium size is normal. The interatrial septum is intact wit h no evidence for an atrial septal defect or patent foramen ovale as noted on 2-D or Doppler imaging. AORTIC VALVE The aortic valve is normal in structure and function. Doppler and Color Flow revealed no significant aortic regurgitation. There is no significant aortic valvular stenosis. MITRAL VALVE The mitral valve is normal in structure and function. There is no evidence of mitral valve prolapse. There is no mitral valve stenosis. Doppler and Color Flow revealed no mitral valve regurgitation note d. TRICUSPID VALVE The tricuspid valve is normal in structure and function. Doppler and Color Flow revealed trace tricus pid regurgitation with an estimated PAP of 30 mmHg. There is no tricuspid valve stenosis. PULMONIC VALVE The pulmonic valve is not well visualized. Doppler and Color Flow revealed no pulmonic valvular regur gitation. GREAT VESSELS The aortic root is normal in size. The IVC is normal in size and collapses >50% with inspiration. PERICARDIAL EFFUSION There is no evidence of significant pericardial effusion. Critical Notification Critical Value: No <Conclusion> The left ventricular systolic function is normal. The Ejection Fraction is 55-60%. There is normal LV segmental wall motion. Trace tricuspid regurgitation with an estimated PAP of 30 mmHg. There is no evidence of significant pericardial effusion. Signed by : Simón Platt, Electronically Approved : 04/30/2019 10:47:03
[2019-04-30] MEDS: CARVEDILOL 6.25 MG TABLET. PO SCH ×2 (17:00→17:44)
[2019-04-30] MEDS: FOLIC ACID 1 MG TABLET. PO SCH (17:43)
[2019-04-30] MEDS: THIAMINE 100 MG TABLET. PO SCH (17:43)
[2019-04-30] MEDS: ASPIRIN ENTERIC COATED 81 MG TABLET.DR. PO SCH (17:43)
[2019-04-30] MEDS: MULTIVITAMIN with MINERAL TABLET. PO SCH (17:43)
[2019-04-30] MEDS: CHLORTHALIDONE 25 MG TABLET. PO SCH (17:43)
[2019-04-30] MEDS ORDERED: LIDO:MAALOX 1:1 20 ML SINGLE DOSE. PO PRN (20:15)
[2019-04-30] MEDS: ATORVASTATIN CALCIUM 40 MG TABLET. PO SCH (20:27)
[2019-04-30] MEDS ORDERED: ATORVASTATIN CALCIUM 40 MG TABLET. PO SCH (21:00)
[2019-05-01 00:08] LABS: HEMOGLOBIN A1C 5.5 % (4.8-5.6)
[2019-05-01] MEDS: MORPHINE SULFATE 2 MG/ML VIAL. IV PRN ×3 (02:38→20:09)
[2019-05-01 03:05] VITALS: BP 158/90
[2019-05-01 04:33] LABS: BASO % 1 % (0-3); EOS # 0.1 x10^3/uL (0.0-0.7); EOS % 2 % (0-3); HEMATOCRIT 33.3 % (36.0-47.0); HEMOGLOBIN 10.9 g/dL (12.0-15.5); LYMPH # 1.6 x10^3/uL (1.0-4.8); LYMPH % 26 % (24-48); MEAN CORPUSCULAR HEMOGLOBIN 27 pg (25-35); MEAN CORPUSCULAR HGB CONC 33 g/dL (31-37); MEAN CORPUSCULAR VOLUME 81 fL (79-100); MONO # 0.4 x10^3/uL (0.0-1.1); MONO % 6 % (0-9); NEUT # 4.1 x10^3/uL (1.8-7.7); NEUT % 66 % (31-73); PLATELET COUNT 256 x10^3/uL (140-400); RED BLOOD COUNT 4.11 x10^6/uL (3.50-5.40); RED CELL DISTRIBUTION WIDTH 17.2 % (11.5-14.5); WHITE BLOOD COUNT 6.2 x10^3/uL (4.0-11.0)
[2019-05-01 05:05] LABS: ALBUMIN 3.6 g/dL (3.4-5.0); ALBUMIN/GLOBULIN RATIO 1.1 (1.0-1.7); CALCIUM 8.9 mg/dL (8.5-10.1); CREATININE 0.9 mg/dL (0.6-1.0); GFR 65.5; POTASSIUM 3.9 mmol/L (3.5-5.1); TOTAL BILIRUBIN 0.4 mg/dL (0.2-1.0)
[2019-05-01] MEDS: LEVOTHYROXINE 25 MCG TABLET. PO SCH (06:19)
[2019-05-01 07:00] VITALS: BP 128/64
[2019-05-01] MEDS: IPRATRPIUM/ALBUTEROL 0.5/2.5MG 3 ML NEBU. NEB SCH ×4 (07:03→20:39)
[2019-05-01] MEDS: amLODIPine BESYLATE 10 MG TABLET PO SCH (08:25)
[2019-05-01] MEDS: ASPIRIN ENTERIC COATED 81 MG TABLET.DR. PO SCH (08:25)
[2019-05-01] MEDS: CARVEDILOL 6.25 MG TABLET. PO SCH ×2 (08:25→17:27)
[2019-05-01] MEDS: MULTIVITAMIN with MINERAL TABLET. PO SCH (08:26)
[2019-05-01] MEDS: PANTOPRAZOLE 40 MG TABLET.DR. PO SCH (08:26)
[2019-05-01] MEDS: THIAMINE 100 MG TABLET. PO SCH (08:26)
[2019-05-01] MEDS: FOLIC ACID 1 MG TABLET. PO SCH (08:26)
--- NOTE | 2019-05-01 09:27 | PDOC ---
PROGRESS NOTES History of Present Illness History of Present Illness VTE Prophylaxis Ordered VTE Prophylaxis Devices: No VTE Pharmacological Prophylaxi: Yes Assessment/Plan Assessment/Plan Impression: Chest pain, UNSTABLE ANGINA ALCOHOL ABUSE HX Smoking addiction/ TOBACCO ABUSE Hypothyroidism Accelerated hypertension elevated troponin i family hx premature CAD HYPERLIPIDEMIA ADMITTED IV BP CONTROL Serial troponin i consult cardiology smoking cessation education provided heparin drip dvt prophylaxis ALCOHOL WITHDRAWAL precautions LIPITOR RX cardiac catheterization on Friday d/w RN , FAMILY IN ROOM Vitals Vitals Vital Signs Date Time Temp Pulse Resp B/P (MAP) Pulse Ox O2 Delivery O2 Flow Rate FiO2 05/01/19 09:08 Room Air 05/01/19 08:25 55 128/64 05/01/19 07:04 94 1.0 05/01/19 07:00 97.6 18 97.6 Physical Exam General: Alert, Oriented X3, Cooperative, No acute distress Heart: Regular rate (SR), Normal S1, Normal S2, Other (2/6 systolic murmur to LLS border) Abdomen: Soft, No tenderness Extremities: No cyanosis, No edema Skin: No breakdown, No significant lesion Labs LABS APPROVED REPORT EXAM: Two-dimensional and M-mode echocardiogram with Doppler and color Doppler. Other Information Quality : Average HR: 58bpm INDICATION Chest Pain RISK FACTORS Hypertension Smoking 2D DIMENSIONS RVDd 2.8 (2.9-3.5cm) Left Atrium(2D) 2.8 (1.6-4.0cm) IVSd 1.2 (0.7-1.1cm) Aortic Root(2D) 2.7 (2.0-3.7cm) LVDd 4.3 (3.9-5.9cm) LVOT Diameter 1.9 (1.8-2.4cm) PWd 1.1 (0.7-1.1cm) LVDs 3.0 (2.5-4.0cm) FS (%) 30.6 % SV 49.7 ml LVEF(%) 58.4 (>50%) Aortic Valve AoV Peak Felix. 148.3cm/s AoV VTI 36.2cm AO Peak GR. 8.8mmHg LVOT VTI 19.31cm AO Mean GR. 5mmHg Mitral Valve MV E Velocity 68.0cm/s MV E Peak Gr. 4mmHg MV DECEL TIME 227ms MV A Velocity 51.9cm/s MV E Mean Gr. 1mmHg E/A Ratio 1.3 TDI Lateral E' P. V 6.50cm/s Medial E' P. V 8.56cm/s E/Lateral E' 10.5 E/Medial E' 7.9 Tricuspid Valve TR P. Velocity 260cm/s RAP ESTIMATE 3mmHg TR Peak Gr. 28mmHg RVSP 31mmHg Pulmonary Vein S1 Velocity 46.5cm/s S2 Velocity 31.46cm/s D2 Velocity 31.5cm/s PVa duration 148msec LEFT VENTRICLE The left ventricle is normal size. There is borderline to mild concentric left ventricular hypertrophy. The left ventricular systolic function is normal. The Ejection Fraction is 55-60%. There is normal LV segmental wall motion. The left ventricular diastolic function and filling is normal for age. RIGHT VENTRICLE The right ventricle is normal size. There is normal right ventricular wall thickness. The right ventricular systolic function is normal. ATRIA The left atrium size is normal. The right atrium size is normal. The interatrial septum is intact with no evidence for an atrial septal defect or patent foramen ovale as noted on 2-D or Doppler imaging. AORTIC VALVE The aortic valve is normal in structure and function. Doppler and Color Flow revealed no significant aortic regurgitation. There is no significant aortic valvular stenosis. MITRAL VALVE The mitral valve is normal in structure and function. There is no evidence of mitral valve prolapse. There is no mitral valve stenosis. Doppler and Color Flow revealed no mitral valve regurgitation noted. TRICUSPID VALVE The tricuspid valve is normal in structure and function. Doppler and Color Flow revealed trace tricuspid regurgitation with an estimated PAP of 30 mmHg. There is no tricuspid valve stenosis. PULMONIC VALVE The pulmonic valve is not well visualized. Doppler and Color Flow revealed no pulmonic valvular regurgitation. GREAT VESSELS The aortic root is normal in size. The IVC is normal in size and collapses >50% with inspiration. PERICARDIAL EFFUSION There is no evidence of significant pericardial effusion. Critical Notification Critical Value: No <Conclusion> The left ventricular systolic function is normal. The Ejection Fraction is 55-60%. There is normal LV segmental wall motion. Trace tricuspid regurgitation with an estimated PAP of 30 mmHg. There is no evidence of significant pericardial effusion. Signed by : Ellen Platt, Electronically Approved : 04/30/2019 10:47:03 DICTATED and SIGNED BY: ELLEN PLATT MD DATE: 04/30/19 1042 Laboratory Tests Test 04/30/19 10:50 05/01/19 03:30 Heparin Anti-Xa Act, Unfractionated 0.37 IU/mL (0.30-0.70) Troponin I Quantitative 0.025 ng/mL (0.000-0.055) White Blood Count 6.2 x10^3/uL (4.0-11.0) Red Blood Count 4.11 x10^6/uL (3.50-5.40) Hemoglobin 10.9 g/dL (12.0-15.5) Hematocrit 33.3 % (36.0-47.0) Mean Corpuscular Volume 81 fL (79-100) Mean Corpuscular Hemoglobin 27 pg (25-35) Mean Corpuscular Hemoglobin Concent 33 g/dL (31-37) Red Cell Distribution Width 17.2 % (11.5-14.5) Platelet Count 256 x10^3/uL (140-400) Neutrophils (%) (Auto) 66 % (31-73) Lymphocytes (%) (Auto) 26 % (24-48) Monocytes (%) (Auto) 6 % (0-9) Eosinophils (%) (Auto) 2 % (0-3) Basophils (%) (Auto) 1 % (0-3) Neutrophils # (Auto) 4.1 x10^3/uL (1.8-7.7) Lymphocytes # (Auto) 1.6 x10^3/uL (1.0-4.8) Monocytes # (Auto) 0.4 x10^3/uL (0.0-1.1) Eosinophils # (Auto) 0.1 x10^3/uL (0.0-0.7) Basophils # (Auto) 0.0 x10^3/uL (0.0-0.2) Sodium Level 138 mmol/L (136-145) Potassium Level 3.9 mmol/L (3.5-5.1) Chloride Level 101 mmol/L (98-107) Carbon Dioxide Level 28 mmol/L (21-32) Anion Gap 9 (6-14) Blood Urea Nitrogen 13 mg/dL (7-20) Creatinine 0.9 mg/dL (0.6-1.0) Estimated GFR (Cockcroft-Gault) 65.5 BUN/Creatinine Ratio 14 (6-20) Glucose Level 95 mg/dL (70-99) Calcium Level 8.9 mg/dL (8.5-10.1) Total Bilirubin 0.4 mg/dL (0.2-1.0) Aspartate Amino Transf (AST/SGOT) 26 U/L (15-37) Alanine Aminotransferase (ALT/SGPT) 35 U/L (14-59) Alkaline Phosphatase 91 U/L (46-116) Total Protein 7.0 g/dL (6.4-8.2) Albumin 3.6 g/dL (3.4-5.0) Albumin/Globulin Ratio 1.1 (1.0-1.7) Assessment and Plan Assessmemt and Plan Problems Medical Problems: (1) Accelerated hypertension Status: Acute (2) Chest pain Status: Acute (3) Hypothyroidism Status: Acute (4) Smoking addiction Status: Acute Comment Review of Relevant I have reviewed the following items britney (where applicable) has been applied. Labs Laboratory Tests Test 04/29/19 14:20 04/29/19 14:57 04/29/19 17:15 04/29/19 20:30 White Blood Count 7.2 x10^3/uL (4.0-11.0) Red Blood Count 4.73 x10^6/uL (3.50-5.40) Hemoglobin 12.5 g/dL (12.0-15.5) Hematocrit 38.1 % (36.0-47.0) Mean Corpuscular Volume 81 fL (79-100) Mean Corpuscular Hemoglobin 27 pg (25-35) Mean Corpuscular Hemoglobin Concent 33 g/dL (31-37) Red Cell Distribution Width 17.3 % (11.5-14.5) Platelet Count 318 x10^3/uL (140-400) Neutrophils (%) (Auto) 68 % (31-73) Lymphocytes (%) (Auto) 23 % (24-48) Monocytes (%) (Auto) 7 % (0-9) Eosinophils (%) (Auto) 1 % (0-3) Basophils (%) (Auto) 1 % (0-3) Neutrophils # (Auto) 4.9 x10^3/uL (1.8-7.7) Lymphocytes # (Auto) 1.7 x10^3/uL (1.0-4.8) Monocytes # (Auto) 0.5 x10^3/uL (0.0-1.1) Eosinophils # (Auto) 0.1 x10^3/uL (0.0-0.7) Basophils # (Auto) 0.1 x10^3/uL (0.0-0.2) Prothrombin Time 12.9 SEC (11.7-14.0) Prothromb Time International Ratio 1.0 (0.8-1.1) Sodium Level 139 mmol/L (136-145) Potassium Level 3.7 mmol/L (3.5-5.1) Chloride Level 101 mmol/L (98-107) Carbon Dioxide Level 25 mmol/L (21-32) Anion Gap 13 (6-14) Blood Urea Nitrogen 8 mg/dL (7-20) Creatinine 0.9 mg/dL (0.6-1.0) Estimated GFR (Cockcroft-Gault) 65.5 BUN/Creatinine Ratio 9 (6-20) Glucose Level 121 mg/dL (70-99) Calcium Level 9.5 mg/dL (8.5-10.1) Magnesium Level 2.3 mg/dL (1.8-2.4) Total Bilirubin 0.5 mg/dL (0.2-1.0) Aspartate Amino Transf (AST/SGOT) 41 U/L (15-37) Alanine Aminotransferase (ALT/SGPT) 45 U/L (14-59) Alkaline Phosphatase 112 U/L (46-116) Creatine Kinase 208 U/L (26-192) Creatine Kinase MB (Mass) 1.4 ng/mL (0.0-3.6) Creatine Kinase MB Relative Index 0.7 % (0-4) Troponin I Quantitative 0.025 ng/mL (0.000-0.055) 0.128 ng/mL (0.000-0.055) 0.044 ng/mL (0.000-0.055) VZ-Nfx-E-Type Natriuretic Peptide 486 pg/mL (0-124) Total Protein 8.3 g/dL (6.4-8.2) Albumin 4.4 g/dL (3.4-5.0) Albumin/Globulin Ratio 1.1 (1.0-1.7) Thyroid Stimulating Hormone (TSH) 38.951 uIU/mL (0.358-3.74) Urine Collection Type Unknown Urine Color Yellow Urine Clarity Clear Urine pH 7.0 Urine Specific [place] <=1.005 Urine Protein Negative mg/dL (NEG-TRACE) Urine Glucose (UA) Negative mg/dL (NEG) Urine Ketones (Stick) Negative mg/dL (NEG) Urine Blood Negative (NEG) Urine Nitrite Negative (NEG) Urine Bilirubin Negative (NEG) Urine Urobilinogen Dipstick 0.2 mg/dL (0.2 mg/dL) Urine Leukocyte Esterase Negative (NEG) Urine RBC 1-2 /HPF (0-2) Urine WBC 1-4 /HPF (0-4) Urine Squamous Epithelial Cells Mod /LPF Urine Amorphous Sediment Present /HPF Urine Bacteria 0 /HPF (0-FEW) Urine Hyaline Casts Few /HPF Urine Mucus Slight /LPF Urine Opiates Screen Neg (NEG) Urine Methadone Screen Neg (NEG) Urine Barbiturates Neg (NEG) Urine Phencyclidine Screen Neg (NEG) Urine Amphetamine/Methamphetamine Neg (NEG) Urine Benzodiazepines Screen Neg (NEG) Urine Cocaine Screen Neg (NEG) Urine Cannabinoids Screen Neg (NEG) Urine Ethyl Alcohol Neg (NEG) Test 04/30/19 03:30 04/30/19 10:50 05/01/19 03:30 White Blood Count 6.2 x10^3/uL (4.0-11.0) 6.2 x10^3/uL (4.0-11.0) Red Blood Count 4.23 x10^6/uL (3.50-5.40) 4.11 x10^6/uL (3.50-5.40) Hemoglobin 11.3 g/dL (12.0-15.5) 10.9 g/dL (12.0-15.5) Hematocrit 34.3 % (36.0-47.0) 33.3 % (36.0-47.0) Mean Corpuscular Volume 81 fL (79-100) 81 fL (79-100) Mean Corpuscular Hemoglobin 27 pg (25-35) 27 pg (25-35) Mean Corpuscular Hemoglobin Concent 33 g/dL (31-37) 33 g/dL (31-37) Red Cell Distribution Width 17.4 % (11.5-14.5) 17.2 % (11.5-14.5) Platelet Count 268 x10^3/uL (140-400) 256 x10^3/uL (140-400) Heparin Anti-Xa Act, Unfractionated 0.13 IU/mL (0.30-0.70) 0.37 IU/mL (0.30-0.70) Sodium Level 139 mmol/L (136-145) 138 mmol/L (136-145) Potassium Level 4.0 mmol/L (3.5-5.1) 3.9 mmol/L (3.5-5.1) Chloride Level 103 mmol/L (98-107) 101 mmol/L (98-107) Carbon Dioxide Level 27 mmol/L (21-32) 28 mmol/L (21-32) Anion Gap 9 (6-14) 9 (6-14) Blood Urea Nitrogen 13 mg/dL (7-20) 13 mg/dL (7-20) Creatinine 1.0 mg/dL (0.6-1.0) 0.9 mg/dL (0.6-1.0) Estimated GFR (Cockcroft-Gault) 58.0 65.5 Glucose Level 115 mg/dL (70-99) 95 mg/dL (70-99) Hemoglobin A1c 5.5 % (4.8-5.6) Calcium Level 9.1 mg/dL (8.5-10.1) 8.9 mg/dL (8.5-10.1) Triglycerides Level 187 mg/dL (0-150) Cholesterol Level 247 mg/dL (0-200) LDL Cholesterol, Calculated 176 mg/dL (0-100) VLDL Cholesterol, Calculated 37 mg/dL (0-40) Non-HDL Cholesterol Calculated 213 mg/dL (0-129) HDL Cholesterol 34 mg/dL (40-60) Cholesterol/HDL Ratio 7.3 Troponin I Quantitative 0.025 ng/mL (0.000-0.055) Neutrophils (%) (Auto) 66 % (31-73) Lymphocytes (%) (Auto) 26 % (24-48) Monocytes (%) (Auto) 6 % (0-9) Eosinophils (%) (Auto) 2 % (0-3) Basophils (%) (Auto) 1 % (0-3) Neutrophils # (Auto) 4.1 x10^3/uL (1.8-7.7) Lymphocytes # (Auto) 1.6 x10^3/uL (1.0-4.8) Monocytes # (Auto) 0.4 x10^3/uL (0.0-1.1) Eosinophils # (Auto) 0.1 x10^3/uL (0.0-0.7) Basophils # (Auto) 0.0 x10^3/uL (0.0-0.2) BUN/Creatinine Ratio 14 (6-20) Total Bilirubin 0.4 mg/dL (0.2-1.0) Aspartate Amino Transf (AST/SGOT) 26 U/L (15-37) Alanine Aminotransferase (ALT/SGPT) 35 U/L (14-59) Alkaline Phosphatase 91 U/L (46-116) Total Protein 7.0 g/dL (6.4-8.2) Albumin 3.6 g/dL (3.4-5.0) Albumin/Globulin Ratio 1.1 (1.0-1.7) Laboratory Tests Test 04/30/19 10:50 05/01/19 03:30 Heparin Anti-Xa Act, Unfractionated 0.37 IU/mL (0.30-0.70) Troponin I Quantitative 0.025 ng/mL (0.000-0.055) White Blood Count 6.2 x10^3/uL (4.0-11.0) Red Blood Count 4.11 x10^6/uL (3.50-5.40) Hemoglobin 10.9 g/dL (12.0-15.5) Hematocrit 33.3 % (36.0-47.0) Mean Corpuscular Volume 81 fL (79-100) Mean Corpuscular Hemoglobin 27 pg (25-35) Mean Corpuscular Hemoglobin Concent 33 g/dL (31-37) Red Cell Distribution Width 17.2 % (11.5-14.5) Platelet Count 256 x10^3/uL (140-400) Neutrophils (%) (Auto) 66 % (31-73) Lymphocytes (%) (Auto) 26 % (24-48) Monocytes (%) (Auto) 6 % (0-9) Eosinophils (%) (Auto) 2 % (0-3) Basophils (%) (Auto) 1 % (0-3) Neutrophils # (Auto) 4.1 x10^3/uL (1.8-7.7) Lymphocytes # (Auto) 1.6 x10^3/uL (1.0-4.8) Monocytes # (Auto) 0.4 x10^3/uL (0.0-1.1) Eosinophils # (Auto) 0.1 x10^3/uL (0.0-0.7) Basophils # (Auto) 0.0 x10^3/uL (0.0-0.2) Sodium Level 138 mmol/L (136-145) Potassium Level 3.9 mmol/L (3.5-5.1) Chloride Level 101 mmol/L (98-107) Carbon Dioxide Level 28 mmol/L (21-32) Anion Gap 9 (6-14) Blood Urea Nitrogen 13 mg/dL (7-20) Creatinine 0.9 mg/dL (0.6-1.0) Estimated GFR (Cockcroft-Gault) 65.5 BUN/Creatinine Ratio 14 (6-20) Glucose Level 95 mg/dL (70-99) Calcium Level 8.9 mg/dL (8.5-10.1) Total Bilirubin 0.4 mg/dL (0.2-1.0) Aspartate Amino Transf (AST/SGOT) 26 U/L (15-37) Alanine Aminotransferase (ALT/SGPT) 35 U/L (14-59) Alkaline Phosphatase 91 U/L (46-116) Total Protein 7.0 g/dL (6.4-8.2) Albumin 3.6 g/dL (3.4-5.0) Albumin/Globulin Ratio 1.1 (1.0-1.7) Medications Current Medications Aspirin (Agustin Aspirin) 325 mg 1X ONCE PO Last administered on 04/29/19at 14:32; Start 04/29/19 at 14:30; Stop 04/29/19 at 14:32; Status DC Nitroglycerin (Nitrostat) 0.4 mg PRN Q5MIN PRN SL CP RATING > 1/10 Last administered on 04/29/19at 14:33; Start 04/29/19 at 14:30; Stop 04/29/19 at 15:58; Status DC Morphine Sulfate (Morphine Sulfate) 4 mg PRN Q15MIN PRN IV/SQ PAIN GREATER THAN 3/10; Start 04/29/19 at 14:30; Stop 04/29/19 at 15:58; Status DC Famotidine (Pepcid Vial) 20 mg 1X ONCE IVP Last administered on 04/29/19at 14:32; Start 04/29/19 at 14:30; Stop 04/29/19 at 14:32; Status DC Labetalol HCl (Normodyne Iv Push) 10 mg 1X ONCE IVP Last administered on 04/29/19at 14:51; Start 04/29/19 at 15:00; Stop 04/29/19 at 15:01; Status DC Clonidine HCl (Catapres) 0.2 mg 1X ONCE PO Last administered on 04/29/19at 14:50; Start 04/29/19 at 15:00; Stop 04/29/19 at 15:01; Status DC Ondansetron HCl (Zofran) 4 mg PRN Q8HRS PRN IV NAUSEA/VOMITING; Start 04/29/19 at 16:00; Stop 04/30/19 at 10:29; Status DC Morphine Sulfate (Morphine Sulfate) 2 mg PRN Q2HR PRN IV PAIN Last administered on 04/30/19at 12:06; Start 04/29/19 at 16:00; Stop 04/30/19 at 15:59; Status DC Nitroglycerin (Nitrostat) 0.4 mg PRN Q5MIN PRN SL CHEST PAIN Last administered on 04/30/19at 14:08; Start 04/29/19 at 16:00; Stop 04/30/19 at 15:59; Status DC Nicotine (Nicoderm Cq 21mg) 1 patch DAILY STAT TD ; Start 04/29/19 at 15:52; Stop 04/29/19 at 15:57; Status DC Heparin Sodium/ Dextrose 250 ml @ 0 mls/hr CONT PRN IV PER PROTOCOL Last admin istered on 04/29/19at 19:12; Start 04/29/19 at 18:45 Heparin Sodium (Porcine) (Heparin Sodium) 1,700 unit PRN Q6HRS PRN IV FOR UFH LEVEL LESS THAN 0.2 Last administered on 04/30/19at 05:34; Start 04/29/19 at 18:45 Multivitamins (Thera M Plus) 1 tab DAILY PO Last administered on 05/01/19at 08:26; Start 04/29/19 at 21:00 Folic Acid (Folic Acid) 1 mg DAILY PO Last administered on 05/01/19at 08:26; Start 04/29/19 at 21:00 Thiamine Mononitrate (Vitamin B-1) 100 mg DAILY PO Last administered on 05/01/19at 08:26; Start 04/29/19 at 21:00 Thiamine HCl 100 mg/Dextrose 51 ml @ 100 mls/hr DAILY IV ; Start 05/04/19 at 09:00; Stop 05/08/19 at 09:31; Status UNV Lorazepam (Ativan) 4 mg PRN Q1HR PRN PO For CIWA 8-14; Start 04/29/19 at 20:45 Lorazepam (Ativan) 8 mg PRN Q1HR PRN PO For CIWA 15 or greater; Start 04/29/19 at 20:45 Lorazepam (Ativan Inj) 2 mg PRN Q1HR PRN IV For CIWA 8-14; Start 04/29/19 at 20:45 Lorazepam (Ativan Inj) 4 mg PRN Q1HR PRN IV For CIWA 15 or greater; Start 04/29/19 at 20:45 Haloperidol Lactate (Haldol Inj) 5 mg PRN Q4HRS PRN IVP Hallucinatns,Confusn,Delirium; Start 04/29/19 at 20:45 Lorazepam (Ativan Inj) 2 mg PRN Q15MIN PRN IV SEE COMMENTS; Start 04/29/19 at 20:45; Status UNV Lorazepam (Ativan Inj) 4 mg PRN Q15MIN PRN IV SEE COMMENTS; Start 04/29/19 at 20:45; Status UNV Sodium Chloride (Normal Saline Flush) 3 ml QSHIFT PRN IV AFTER MEDS AND BLOOD DRAWS; Start 04/29/19 at 20:45 Ondansetron HCl (Zofran) 4 mg PRN Q4HRS PRN IV NAUSEA/VOMITING Last administered on 04/30/19at 17:47; Start 04/29/19 at 20:45 Acetaminophen (Tylenol) 650 mg PRN Q4HRS PRN PO TEMP OVER 100.4F OR MILD PAIN; Start 04/29/19 at 20:45 Al Hydroxide/Mg Hydroxide (Mylanta Plus Xs) 30 ml PRN DAILY PRN PO HEARTBURN / GAS; Start 04/29/19 at 20:45 Sodium Monofluorophosphate (Fleet Adult) 133 ml PRN DAILY PRN OR CONSTIPATION; Start 04/29/19 at 20:45 Docusate Sodium (Colace) 100 mg PRN BID PRN PO CONSTIPATION; Start 04/29/19 at 20:45 Albuterol/ Ipratropium (Duoneb) 3 ml Q4HRS NEB ; Start 04/30/19 at 00:00; Stop 04/30/19 at 00:24; Status DC Guaifenesin (Robitussin) 200 mg PRN Q4HRS PRN PO COUGH; Start 04/29/19 at 20:45 Lorazepam (Ativan) 0.5 mg PRN Q4HRS PRN PO ANXIETY / AGITATION; Start 04/29/19 at 20:45 Pantoprazole Sodium (PROTONIX VIAL for IV PUSH) 40 mg DAILYAC IVP Last admini stered on 04/30/19at 07:53; Start 04/30/19 at 07:30; Stop 04/30/19 at 10:28; Status DC Levothyroxine Sodium (Synthroid) 25 mcg DAILY06 PO Last administered on 05/01/19at 06:19; Start 04/30/19 at 06:00 Calcium Carbonate/ Glycine (Tums) 500 mg PRN Q2HRS PRN PO INDIGESTION Last administered on 04/30/19at 07:52; Start 04/29/19 at 22:45 Albuterol/ Ipratropium (Duoneb) 3 ml RTQID NEB Last administered on 05/01/19at 07:03; Start 04/30/19 at 08:00 Info (Anti-Coagulation Monitoring By Pharmacy) 1 each PRN DAILY PRN MC SEE COMMENTS Last administered on 04/30/19at 07:49; Start 04/30/19 at 07:45 Amlodipine Besylate (Norvasc) 10 mg DAILY PO Last administered on 05/01/19at 08:25; Start 04/30/19 at 09:00 Hydralazine HCl (Apresoline Inj) 10 mg PRN Q6HRS PRN IVP SBP > 180; Start 04/30/19 at 09:00 Atorvastatin Calcium (Lipitor) 40 mg QHS PO Last administered on 04/30/19 20:27; Start 04/30/19 at 21:00 Carvedilol (Coreg) 6.25 mg BIDWMEALS PO Last administered on 05/01/19 08:25; Start 04/30/19 at 12:00 Pantoprazole Sodium (Protonix) 40 mg 1X ONCE PO Last administered on 04/30/19 08:00; Start 04/30/19 at 10:30; Stop 04/30/19 at 10:31; Status DC Pantoprazole Sodium (Protonix) 40 mg DAILYAC PO Last administered on 05/01/19 08:26; Start 05/01/19 at 07:30 Aspirin (Ecotrin) 81 mg DAILYWBKFT PO Last administered on 05/01/19 08:25; Start 04/30/19 at 12:00 Atorvastatin Calcium (Lipitor) 40 mg QHS PO ; Start 04/30/19 at 21:00; Status UNV Chlorthalidone (Thalitone) 25 mg DAILY PO Last administered on 04/30/19at 17:43; Start 04/30/19 at 12:00 Multi-Ingredient Mouthwash/Gargle (Gi Cocktail) 20 ml PRN QID PRN PO CHEST PAIN Last administered on 04/30/19 20:27; Start 04/30/19 at 20:15 Morphine Sulfate (Morphine Sulfate) 2 mg PRN Q4HRS PRN IV SEVERE PAIN 7-10 Last administered on 05/01/19 09:08; Start 04/30/19 at 23:15 Nitroglycerin (Nitrostat) 0.4 mg PRN Q5MIN PRN SL CHEST PAIN; Start 04/30/19 at 23:15 Vitals/I & O Vital Sign - Last 24 Hours 04/30/19 04/30/19 04/30/19 04/30/19 09:33 10:08 11:00 11:31 Temp 97.6 97.6 Pulse 55 55 59 Resp 18 B/P (MAP) 145/76 145/76 118/77 (91) Pulse Ox 94 94 O2 Delivery Room Air Room Air 04/30/19 04/30/19 04/30/19 04/30/19 12:06 12:36 14:08 15:00 Temp 97.5 97.5 Pulse 55 53 Resp 18 18 18 B/P (MAP) 118/77 123/76 (92) Pulse Ox 94 94 96 O2 Delivery Room Air Room Air Room Air 04/30/19 04/30/19 04/30/19 04/30/19 15:41 17:00 17:44 19:30 Pulse 55 55 B/P (MAP) 118/77 118/77 O2 Delivery Room Air Room Air 04/30/19 04/30/19 04/30/19 04/30/19 19:55 20:12 23:17 23:20 Temp 97.5 97.3 97.5 97.3 Pulse 65 51 Resp 16 16 B/P (MAP) 127/70 (89) 119/56 (77) Pulse Ox 92 94 96 O2 Delivery Room Air Room Air Room Air Room Air 04/30/19 05/01/19 05/01/19 05/01/19 23:49 02:38 03:05 03:20 Temp 97.3 97.3 Pulse 52 Resp 18 20 16 B/P (MAP) 158/90 (112) Pulse Ox 93 O2 Delivery Room Air Room Air Room Air 05/01/19 05/01/19 05/01/19 05/01/19 07:00 07:04 08:10 08:25 Temp 97.6 97.6 Pulse 51 55 Resp 18 B/P (MAP) 128/64 (85) 128/64 Pulse Ox 94 94 O2 Delivery Room Air Nasal Cannula Room Air O2 Flow Rate 1.0 05/01/19 05/01/19 08:25 09:08 Pulse 55 B/P (MAP) 128/64 O2 Delivery Room Air Intake and Output 04/30/19 04/30/19 05/01/19 15:00 23:00 07:00 Intake Total 500 ml Output Total 180 ml 0 ml Balance -180 ml 0 ml 500 ml YOBANI [email or web address] MD May 01, 2019 09:27
[2019-05-01] MEDS: CHLORTHALIDONE 25 MG TABLET. PO SCH (10:05)
[2019-05-01 11:00] VITALS: BP 124/69
[2019-05-01 14:46] VITALS: BP 120/58
[2019-05-01] MEDS: NITROGLYCERIN SUBLINGUAL 0.4 MG BOTTLE OF 25. SL PRN (15:07)
--- NOTE | 2019-05-01 16:28 | PDOC ---
PROGRESS NOTES Subjective Subjective Patient continues to complain of retrosternal chest pressure on minimal exertion Objective Objective Vital Signs Date Time Temp Pulse Resp B/P (MAP) Pulse Ox O2 Delivery O2 Flow Rate FiO2 05/01/19 15:07 55 186/95 05/01/19 14:46 97.9 18 95 Room Air 1.0 97.9 Intake and Output 05/01/19 07:00 Intake Total 500 ml Output Total 180 ml Balance 320 ml Intake Oral 500 ml Output Urine Total 180 ml # Voids 2 Physical Exam Abdomen: Soft, No tenderness Heart: Regular rate (SR), Normal S1, Normal S2, Other (2/6 systolic murmur to LLS border) Extremities: No cyanosis, No edema General: Alert, Oriented X3, Cooperative, No acute distress HEENT: Atraumatic, Mucous membr. moist/pink Lungs: Clear to auscultation, Normal air movement Neuro: Normal speech, Sensation intact Psych/Mental Status: Mental status NL, Mood NL Skin: No breakdown, No significant lesion Assessment Assessment 1. Chest pain: UA features. Troponin level slightly elevated but this could be s econdary to demand ischemia from uncontrolled hypertension. 2-D echo showed normal LV systolic function without any wall motion abnormalities. Plan for cardiac catheterization for definitive evaluation on Friday. 2. Malignant HTN: Better controlled but still slightly labile. Increase amlodipine dose for better control. 3. Hypothyroidism: 33 TSH per PCP 4. HLP: Statins 5. Tobaccoism 6. ETOH misuse: 2-3 beers daily 7. GERD Plan Plan of Care Problems Medical Problems: (1) Accelerated hypertension Status: Acute (2) Chest pain Status: Acute (3) Hypothyroidism Status: Acute (4) Smoking addiction Status: Acute Comment Review of Relevant I have reviewed the following items britney (where applicable) has been applied. Labs Laboratory Tests Test 05/01/19 03:30 White Blood Count 6.2 x10^3/uL (4.0-11.0) Red Blood Count 4.11 x10^6/uL (3.50-5.40) Hemoglobin 10.9 g/dL (12.0-15.5) Hematocrit 33.3 % (36.0-47.0) Mean Corpuscular Volume 81 fL (79-100) Mean Corpuscular Hemoglobin 27 pg (25-35) Mean Corpuscular Hemoglobin Concent 33 g/dL (31-37) Red Cell Distribution Width 17.2 % (11.5-14.5) Platelet Count 256 x10^3/uL (140-400) Neutrophils (%) (Auto) 66 % (31-73) Lymphocytes (%) (Auto) 26 % (24-48) Monocytes (%) (Auto) 6 % (0-9) Eosinophils (%) (Auto) 2 % (0-3) Basophils (%) (Auto) 1 % (0-3) Neutrophils # (Auto) 4.1 x10^3/uL (1.8-7.7) Lymphocytes # (Auto) 1.6 x10^3/uL (1.0-4.8) Monocytes # (Auto) 0.4 x10^3/uL (0.0-1.1) Eosinophils # (Auto) 0.1 x10^3/uL (0.0-0.7) Basophils # (Auto) 0.0 x10^3/uL (0.0-0.2) Sodium Level 138 mmol/L (136-145) Potassium Level 3.9 mmol/L (3.5-5.1) Chloride Level 101 mmol/L (98-107) Carbon Dioxide Level 28 mmol/L (21-32) Anion Gap 9 (6-14) Blood Urea Nitrogen 13 mg/dL (7-20) Creatinine 0.9 mg/dL (0.6-1.0) Estimated GFR (Cockcroft-Gault) 65.5 BUN/Creatinine Ratio 14 (6-20) Glucose Level 95 mg/dL (70-99) Calcium Level 8.9 mg/dL (8.5-10.1) Total Bilirubin 0.4 mg/dL (0.2-1.0) Aspartate Amino Transf (AST/SGOT) 26 U/L (15-37) Alanine Aminotransferase (ALT/SGPT) 35 U/L (14-59) Alkaline Phosphatase 91 U/L (46-116) Total Protein 7.0 g/dL (6.4-8.2) Albumin 3.6 g/dL (3.4-5.0) Albumin/Globulin Ratio 1.1 (1.0-1.7) Medications Current Medications Atorvastatin Calcium (Lipitor) 40 mg QHS PO Last administered on 04/30/19at 20:27; Start 04/30/19 at 21:00 Atorvastatin Calcium (Lipitor) 40 mg QHS PO ; Start 04/30/19 at 21:00; Status UNV Morphine Sulfate (Morphine Sulfate) 2 mg PRN Q4HRS PRN IV SEVERE PAIN 7-10 Last administered on 05/01/19at 09:08; Start 04/30/19 at 23:15 Multi-Ingredient Mouthwash/Gargle (Gi Cocktail) 20 ml PRN QID PRN PO CHEST PAIN Last administered on 04/30/19at 20:27; Start 04/30/19 at 20:15 Nitroglycerin (Nitrostat) 0.4 mg PRN Q5MIN PRN SL CHEST PAIN Last administered on 05/01/19at 15:07; Start 04/30/19 at 23:15 Pantoprazole Sodium (Protonix) 40 mg DAILYAC PO Last administered on 05/01/19at 08:26; Start 05/01/19 at 07:30 Thiamine HCl 100 mg/Dextrose 51 ml @ 100 mls/hr DAILY IV ; Start 05/04/19 at 09:00; Stop 05/08/19 at 09:31; Status UNV Vitals/I & O Vital Sign - Last 24 Hours 04/30/19 04/30/19 04/30/19 04/30/19 17:00 17:44 19:30 19:55 Temp 97.5 97.5 Pulse 55 55 65 Resp 16 B/P (MAP) 118/77 118/77 127/70 (89) Pulse Ox 92 O2 Delivery Room Air Room Air 04/30/19 04/30/19 04/30/19 04/30/19 20:12 23:17 23:20 23:49 Temp 97.3 97.3 Pulse 51 Resp 16 18 B/P (MAP) 119/56 (77) Pulse Ox 94 96 O2 Delivery Room Air Room Air Room Air Room Air 05/01/19 05/01/19 05/01/19 05/01/19 02:38 03:05 03:20 07:00 Temp 97.3 97.6 97.3 97.6 Pulse 52 51 Resp 20 16 18 B/P (MAP) 158/90 (112) 128/64 (85) Pulse Ox 93 94 O2 Delivery Room Air Room Air Room Air 2/29/05/01/19 05/01/19 05/01/19 07:04 08:10 08:25 08:25 Pulse 55 55 B/P (MAP) 128/64 128/64 Pulse Ox 94 O2 Delivery Nasal Cannula Room Air O2 Flow Rate 1.0 05/01/19 05/01/19 05/01/19 05/01/19 09:08 09:35 11:00 11:41 Temp 97.4 97.4 Pulse 56 Resp 18 B/P (MAP) 124/69 (87) Pulse Ox 93 93 O2 Delivery Room Air Room Air Room Air Room Air 05/01/19 05/01/19 14:46 15:07 Temp 97.9 97.9 Pulse 52 55 Resp 18 B/P (MAP) 120/58 (78) 186/95 Pulse Ox 95 O2 Delivery Room Air O2 Flow Rate 1.0 Intake and Output 04/30/19 04/30/19 05/01/19 15:00 23:00 07:00 Intake Total 500 ml Output Total 180 ml 0 ml Balance -180 ml 0 ml 500 ml ELLEN NGUYEN MD May 01, 2019 16:28
[2019-05-01 19:00] VITALS: BP 111/65
[2019-05-01] MEDS: ATORVASTATIN CALCIUM 40 MG TABLET. PO SCH (20:09)
[2019-05-01 22:22] VITALS: BP 112/70
[2019-05-02] VITALS (8 sets, daily range): BP systolic 133–203; BP diastolic 74–101
[2019-05-02] MEDS: MORPHINE SULFATE 2 MG/ML VIAL. IV PRN ×2 (04:48→13:06)
[2019-05-02 04:51] LABS: HEMATOCRIT 36.7 % (36.0-47.0); HEMOGLOBIN 12.2 g/dL (12.0-15.5); RED BLOOD COUNT 4.53 x10^6/uL (3.50-5.40); RED CELL DISTRIBUTION WIDTH 17.4 % (11.5-14.5); WHITE BLOOD COUNT 7.2 x10^3/uL (4.0-11.0)
[2019-05-02] MEDS: LEVOTHYROXINE 25 MCG TABLET. PO SCH (04:56)
[2019-05-02] MEDS: IPRATRPIUM/ALBUTEROL 0.5/2.5MG 3 ML NEBU. NEB SCH ×4 (07:51→20:20)
[2019-05-02] MEDS: CARVEDILOL 6.25 MG TABLET. PO SCH ×2 (08:00→16:52)
[2019-05-02] MEDS: CHLORTHALIDONE 25 MG TABLET. PO SCH (09:07)
[2019-05-02] MEDS: MULTIVITAMIN with MINERAL TABLET. PO SCH (09:07)
[2019-05-02] MEDS: PANTOPRAZOLE 40 MG TABLET.DR. PO SCH (09:09)
[2019-05-02] MEDS: ASPIRIN ENTERIC COATED 81 MG TABLET.DR. PO SCH (09:10)
[2019-05-02] MEDS: FOLIC ACID 1 MG TABLET. PO SCH (09:10)
[2019-05-02] MEDS: THIAMINE 100 MG TABLET. PO SCH (09:10)
[2019-05-02] MEDS: amLODIPine BESYLATE 10 MG TABLET PO SCH (09:10)
--- NOTE | 2019-05-02 09:24 | PDOC ---
PROGRESS NOTES Subjective Subjective Continues to complain of chest pain on minimal exertion Objective Objective Vital Signs Date Time Temp Pulse Resp B/P (MAP) Pulse Ox O2 Delivery O2 Flow Rate FiO2 05/02/19 09:10 57 133/74 05/02/19 06:25 97.4 94 Room Air 97.4 05/01/19 22:22 18 05/01/19 14:46 1.0 Intake and Output 05/02/19 07:00 Intake Total 150 ml Output Total 400 ml Balance -250 ml Intake Oral 150 ml Output Urine Total 400 ml # Voids 1 Physical Exam Abdomen: Soft, No tenderness Heart: Regular rate (SR), Normal S1, Normal S2, Other (2/6 systolic murmur to LLS border) Extremities: No cyanosis, No edema General: Alert, Oriented X3, Cooperative, No acute distress HEENT: Atraumatic, Mucous membr. moist/pink Lungs: Clear to auscultation, Normal air movement Neuro: Normal speech, Sensation intact Psych/Mental Status: Mental status NL, Mood NL Skin: No breakdown, No significant lesion Assessment Assessment 1. Chest pain: UA features. Troponin level slightly elevated but this could be secondary to demand ischemia from uncontrolled hypertension. 2-D echo showed normal LV systolic function without any wall motion abnormalities. Plan for cardiac catheterization for definitive evaluation on Friday. 2. Malignant HTN: Better controlled. 3. Hypothyroidism: 33 TSH - treat per PCP 4. HLP: Statins 5. Tobaccoism 6. ETOH misuse: 2-3 beers daily 7. GERD Plan Plan of Care Problems Medical Problems: (1) Accelerated hypertension Status: Acute (2) Chest pain Status: Acute (3) Hypothyroidism Status: Acute (4) Smoking addiction Status: Acute Comment Review of Relevant I have reviewed the following items britney (where applicable) has been applied. Labs Laboratory Tests Test 05/02/19 04:30 White Blood Count 7.2 x10^3/uL (4.0-11.0) Red Blood Count 4.53 x10^6/uL (3.50-5.40) Hemoglobin 12.2 g/dL (12.0-15.5) Hematocrit 36.7 % (36.0-47.0) Mean Corpuscular Volume 81 fL (79-100) Mean Corpuscular Hemoglobin 27 pg (25-35) Mean Corpuscular Hemoglobin Concent 33 g/dL (31-37) Red Cell Distribution Width 17.4 % (11.5-14.5) Platelet Count 284 x10^3/uL (140-400) Medications Current Medications Thiamine HCl 100 mg/Dextrose 51 ml @ 100 mls/hr DAILY IV ; Start 05/04/19 at 09: 00; Stop 05/08/19 at 09:31; Status UNV Vitals/I & O Vital Sign - Last 24 Hours 05/01/19 05/01/19 05/01/19 05/01/19 09:35 11:00 11:41 14:46 Temp 97.4 97.9 97.4 97.9 Pulse 56 52 Resp 18 18 B/P (MAP) 124/69 (87) 120/58 (78) Pulse Ox 93 93 95 O2 Delivery Room Air Room Air Room Air Room Air O2 Flow Rate 1.0 05/01/19 05/01/19 05/01/19 05/01/19 15:07 17:27 19:00 20:00 Temp 97.5 97.5 Pulse 55 55 59 Resp 18 B/P (MAP) 186/95 115/68 111/65 (80) Pulse Ox 95 O2 Delivery Room Air Room Air 05/01/19 05/01/19 05/01/19 05/01/19 20:09 20:39 21:00 22:22 Temp 98.0 98.0 Pulse 53 Resp 20 18 B/P (MAP) 112/70 (84) Pulse Ox 92 O2 Delivery Room Air Room Air Room Air Room Air 05/02/19 05/02/19 05/02/19 05/02/19 03:00 04:48 05:31 06:25 Temp 99.7 97.4 99.7 97.4 Pulse 55 54 B/P (MAP) 157/84 (108) 133/74 (93) Pulse Ox 94 O2 Delivery Room Air Room Air Room Air Room Air 05/02/19 05/02/19 08:00 09:10 Pulse 57 57 B/P (MAP) 133/74 133/74 Intake and Output 05/01/19 05/01/19 05/02/19 15:00 23:00 07:00 Intake Total 150 ml Output Total 400 ml Balance -400 ml 150 ml ELLEN NGUYEN MD May 02, 2019 09:24
--- NOTE | 2019-05-02 10:54 | PDOC ---
PROGRESS NOTES History of Present Illness History of Present Illness VTE Prophylaxis Ordered VTE Prophylaxis Devices: No VTE Pharmacological Prophylaxi: Yes Assessment/Plan Assessment/Plan Impression: Chest pain, UNSTABLE ANGINA PERSISTS ALCOHOL ABUSE HX Smoking addiction/ TOBACCO ABUSE Hypothyroidism Accelerated hypertension elevated troponin i family hx premature CAD HYPERLIPIDEMIA ADMITTED IV BP CONTROL Serial troponin i consult cardiology smoking cessation education provided heparin drip dvt prophylaxis ALCOHOL WITHDRAWAL precautions LIPITOR RX cardiac catheterization on Tuesday 05/02 d/w RN , FAMILY IN ROOM 05/02 Vitals Vitals Vital Signs Date Time Temp Pulse Resp B/P (MAP) Pulse Ox O2 Delivery O2 Flow Rate FiO2 05/02/19 09:10 57 133/74 05/02/19 06:25 97.4 94 Room Air 97.4 05/01/19 22:22 18 05/01/19 14:46 1.0 Physical Exam General: Alert, Oriented X3, Cooperative, No acute distress Heart: Regular rate (SR), Normal S1, Normal S2, Other (2/6 systolic murmur to LLS border) Lungs: Clear Abdomen: Soft, No tenderness Extremities: No cyanosis, No edema Skin: No breakdown, No significant lesion Labs LABS Laboratory Tests Test 05/02/19 04:30 White Blood Count 7.2 x10^3/uL (4.0-11.0) Red Blood Count 4.53 x10^6/uL (3.50-5.40) Hemoglobin 12.2 g/dL (12.0-15.5) Hematocrit 36.7 % (36.0-47.0) Mean Corpuscular Volume 81 fL (79-100) Mean Corpuscular Hemoglobin 27 pg (25-35) Mean Corpuscular Hemoglobin Concent 33 g/dL (31-37) Red Cell Distribution Width 17.4 % (11.5-14.5) Platelet Count 284 x10^3/uL (140-400) Assessment and Plan Assessmemt and Plan Problems Medical Problems: (1) Accelerated hypertension Status: Acute (2) Chest pain Status: Acute (3) Hypothyroidism Status: Acute (4) Smoking addiction Status: Acute Comment Review of Relevant I have reviewed the following items britney (where applicable) has been applied. Labs Laboratory Tests Test 05/01/19 03:30 05/02/19 04:30 White Blood Count 6.2 x10^3/uL (4.0-11.0) 7.2 x10^3/uL (4.0-11.0) Red Blood Count 4.11 x10^6/uL (3.50-5.40) 4.53 x10^6/uL (3.50-5.40) Hemoglobin 10.9 g/dL (12.0-15.5) 12.2 g/dL (12.0-15.5) Hematocrit 33.3 % (36.0-47.0) 36.7 % (36.0-47.0) Mean Corpuscular Volume 81 fL (79-100) 81 fL (79-100) Mean Corpuscular Hemoglobin 27 pg (25-35) 27 pg (25-35) Mean Corpuscular Hemoglobin Concent 33 g/dL (31-37) 33 g/dL (31-37) Red Cell Distribution Width 17.2 % (11.5-14.5) 17.4 % (11.5-14.5) Platelet Count 256 x10^3/uL (140-400) 284 x10^3/uL (140-400) Neutrophils (%) (Auto) 66 % (31-73) Lymphocytes (%) (Auto) 26 % (24-48) Monocytes (%) (Auto) 6 % (0-9) Eosinophils (%) (Auto) 2 % (0-3) Basophils (%) (Auto) 1 % (0-3) Neutrophils # (Auto) 4.1 x10^3/uL (1.8-7.7) Lymphocytes # (Auto) 1.6 x10^3/uL (1.0-4.8) Monocytes # (Auto) 0.4 x10^3/uL (0.0-1.1) Eosinophils # (Auto) 0.1 x10^3/uL (0.0-0.7) Basophils # (Auto) 0.0 x10^3/uL (0.0-0.2) Sodium Level 138 mmol/L (136-145) Potassium Level 3.9 mmol/L (3.5-5.1) Chloride Level 101 mmol/L (98-107) Carbon Dioxide Level 28 mmol/L (21-32) Anion Gap 9 (6-14) Blood Urea Nitrogen 13 mg/dL (7-20) Creatinine 0.9 mg/dL (0.6-1.0) Estimated GFR (Cockcroft-Gault) 65.5 BUN/Creatinine Ratio 14 (6-20) Glucose Level 95 mg/dL (70-99) Calcium Level 8.9 mg/dL (8.5-10.1) Total Bilirubin 0.4 mg/dL (0.2-1.0) Aspartate Amino Transf (AST/SGOT) 26 U/L (15-37) Alanine Aminotransferase (ALT/SGPT) 35 U/L (14-59) Alkaline Phosphatase 91 U/L (46-116) Total Protein 7.0 g/dL (6.4-8.2) Albumin 3.6 g/dL (3.4-5.0) Albumin/Globulin Ratio 1.1 (1.0-1.7) Laboratory Tests Test 05/02/19 04:30 White Blood Count 7.2 x10^3/uL (4.0-11.0) Red Blood Count 4.53 x10^6/uL (3.50-5.40) Hemoglobin 12.2 g/dL (12.0-15.5) Hematocrit 36.7 % (36.0-47.0) Mean Corpuscular Volume 81 fL (79-100) Mean Corpuscular Hemoglobin 27 pg (25-35) Mean Corpuscular Hemoglobin Concent 33 g/dL (31-37) Red Cell Distribution Width 17.4 % (11.5-14.5) Platelet Count 284 x10^3/uL (140-400) Medications Current Medications Aspirin (CiviQ Aspirin) 325 mg 1X ONCE PO Last administered on 04/29/19at 14:32; Start 04/29/19 at 14:30; Stop 04/29/19 at 14:32; Status DC Nitroglycerin (Nitrostat) 0.4 mg PRN Q5MIN PRN SL CP RATING > 1/10 Last administered on 04/29/19at 14:33; Start 04/29/19 at 14:30; Stop 04/29/19 at 15:58; Status DC Morphine Sulfate (Morphine Sulfate) 4 mg PRN Q15MIN PRN IV/SQ PAIN GREATER THAN 3/10; Start 04/29/19 at 14:30; Stop 04/29/19 at 15:58; Status DC Famotidine (Pepcid Vial) 20 mg 1X ONCE IVP Last administered on 04/29/19at 14:32; Start 04/29/19 at 14:30; Stop 04/29/19 at 14:32; Status DC Labetalol HCl (Normodyne Iv Push) 10 mg 1X ONCE IVP Last administered on 04/29/19at 14:51; Start 04/29/19 at 15:00; Stop 04/29/19 at 15:01; Status DC Clonidine HCl (Catapres) 0.2 mg 1X ONCE PO Last administered on 04/29/19at 14:50; Start 04/29/19 at 15:00; Stop 04/29/19 at 15:01; Status DC Ondansetron HCl (Zofran) 4 mg PRN Q8HRS PRN IV NAUSEA/VOMITING; Start 04/29/19 at 16:00; Stop 04/30/19 at 10:29; Status DC Morphine Sulfate (Morphine Sulfate) 2 mg PRN Q2HR PRN IV PAIN Last administered on 04/30/19at 12:06; Start 04/29/19 at 16:00; Stop 04/30/19 at 15:59; Status DC Nitroglycerin (Nitrostat) 0.4 mg PRN Q5MIN PRN SL CHEST PAIN Last administered on 04/30/19at 14:08; Start 04/29/19 at 16:00; Stop 04/30/19 at 15:59; Status DC Nicotine (Nicoderm Cq 21mg) 1 patch DAILY STAT TD ; Start 04/29/19 at 15:52; Stop 04/29/19 at 15:57; Status DC Heparin Sodium/ Dextrose 250 ml @ 0 mls/hr CONT PRN IV PER PROTOCOL Last administered on 04/29/19at 19:12; Start 04/29/19 at 18:45 Heparin Sodium (Porcine) (Heparin Sodium) 1,700 unit PRN Q6HRS PRN IV FOR UFH LEVEL LESS THAN 0.2 Last administered on 04/30/19at 05:34; Start 04/29/19 at 18:45 Multivitamins (Thera M Plus) 1 tab DAILY PO Last administered on 05/02/19at 09:07; Start 04/29/19 at 21:00 Folic Acid (Folic Acid) 1 mg DAILY PO Last administered on 05/02/19at 09:10; Start 04/29/19 at 21:00 Thiamine Mononitrate (Vitamin B-1) 100 mg DAILY PO Last administered on 05/02/19at 09:10; Start 04/29/19 at 21:00 Thiamine HCl 100 mg/Dextrose 51 ml @ 100 mls/hr DAILY IV ; Start 05/04/19 at 09:00; Stop 05/08/19 at 09:31; Status UNV Lorazepam (Ativan) 4 mg PRN Q1HR PRN PO For CIWA 8-14; Start 04/29/19 at 20:45 Lorazepam (Ativan) 8 mg PRN Q1HR PRN PO For CIWA 15 or greater; Start 04/29/19 at 20:45 Lorazepam (Ativan Inj) 2 mg PRN Q1HR PRN IV For CIWA 8-14; Start 04/29/19 at 20:45 Lorazepam (Ativan Inj) 4 mg PRN Q1HR PRN IV For CIWA 15 or greater; Start 04/29/19 at 20:45 Haloperidol Lactate (Haldol Inj) 5 mg PRN Q4HRS PRN IVP Hallucinatns,Confusn,Delirium; Start 04/29/19 at 20:45 Lorazepam (Ativan Inj) 2 mg PRN Q15MIN PRN IV SEE COMMENTS; Start 04/29/19 at 20:45; Status UNV Lorazepam (Ativan Inj) 4 mg PRN Q15MIN PRN IV SEE COMMENTS; Start 04/29/19 at 20:45; Status UNV Sodium Chloride (Normal Saline Flush) 3 ml QSHIFT PRN IV AFTER MEDS AND BLOOD D RAWS; Start 04/29/19 at 20:45 Ondansetron HCl (Zofran) 4 mg PRN Q4HRS PRN IV NAUSEA/VOMITING Last administered on 04/30/19at 17:47; Start 04/29/19 at 20:45 Acetaminophen (Tylenol) 650 mg PRN Q4HRS PRN PO TEMP OVER 100.4F OR MILD PAIN; Start 04/29/19 at 20:45 Al Hydroxide/Mg Hydroxide (Mylanta Plus Xs) 30 ml PRN DAILY PRN PO HEARTBURN / GAS; Start 04/29/19 at 20:45 Sodium Monofluorophosphate (Fleet Adult) 133 ml PRN DAILY PRN MN CONSTIPATION; Start 04/29/19 at 20:45 Docusate Sodium (Colace) 100 mg PRN BID PRN PO CONSTIPATION; Start 04/29/19 at 20:45 Albuterol/ Ipratropium (Duoneb) 3 ml Q4HRS NEB ; Start 04/30/19 at 00:00; Stop 04/30/19 at 00:24; Status DC Guaifenesin (Robitussin) 200 mg PRN Q4HRS PRN PO COUGH; Start 04/29/19 at 20:45 Lorazepam (Ativan) 0.5 mg PRN Q4HRS PRN PO ANXIETY / AGITATION; Start 04/29/19 at 20:45 Pantoprazole Sodium (PROTONIX VIAL for IV PUSH) 40 mg DAILYAC IVP Last administered on 04/30/19at 07:53; Start 04/30/19 at 07:30; Stop 04/30/19 at 10:28; Status DC Levothyroxine Sodium (Synthroid) 25 mcg DAILY06 PO Last administered on 05/02/19at 04:56; Start 04/30/19 at 06:00 Calcium Carbonate/ Glycine (Tums) 500 mg PRN Q2HRS PRN PO INDIGESTION Last administered on 04/30/19 07:52; Start 04/29/19 at 22:45 Albuterol/ Ipratropium (Duoneb) 3 ml RTQID NEB Last administered on 05/01/19at 20:39; Start 04/30/19 at 08:00 Info (Anti-Coagulation Monitoring By Pharmacy) 1 each PRN DAILY PRN MC SEE COMMENTS Last administered on 04/30/19at 07:49; Start 04/30/19 at 07:45 Amlodipine Besylate (Norvasc) 10 mg DAILY PO Last administered on 05/02/19at 09:10; Start 04/30/19 at 09:00 Hydralazine HCl (Apresoline Inj) 10 mg PRN Q6HRS PRN IVP SBP > 180; Start 04/30/19 at 09:00 Atorvastatin Calcium (Lipitor) 40 mg QHS PO Last administered on 05/01/19at 20:09; Start 04/30/19 at 21:00 Carvedilol (Coreg) 6.25 mg BIDWMEALS PO Last administered on 05/01/19 17:27; Start 04/30/19 at 12:00 Pantoprazole Sodium (Protonix) 40 mg 1X ONCE PO Last administered on 04/30/19 08:00; Start 04/30/19 at 10:30; Stop 04/30/19 at 10:31; Status DC Pantoprazole Sodium (Protonix) 40 mg DAILYAC PO Last administered on 05/02/19 09:09; Start 05/01/19 at 07:30 Aspirin (Ecotrin) 81 mg DAILYWBKFT PO Last administered on 05/02/19 09:10; Start 04/30/19 at 12:00 Atorvastatin Calcium (Lipitor) 40 mg QHS PO ; Start 04/30/19 at 21:00; Status UNV Chlorthalidone (Thalitone) 25 mg DAILY PO Last administered on 05/02/19 09:07; Start 04/30/19 at 12:00 Multi-Ingredient Mouthwash/Gargle (Gi Cocktail) 20 ml PRN QID PRN PO CHEST PAIN Last administered on 04/30/19at 20:27; Start 04/30/19 at 20:15 Morphine Sulfate (Morphine Sulfate) 2 mg PRN Q4HRS PRN IV SEVERE PAIN 7-10 Last administered on 05/02/19 04:48; Start 04/30/19 at 23:15 Nitroglycerin (Nitrostat) 0.4 mg PRN Q5MIN PRN SL CHEST PAIN Last administered on 05/01/19 15:07; Start 04/30/19 at 23:15 Vitals/I & O Vital Sign - Last 24 Hours 05/01/19 05/01/19 05/01/19 05/01/19 11:00 11:41 14:46 15:07 Temp 97.4 97.9 97.4 97.9 Pulse 56 52 55 Resp 18 18 B/P (MAP) 124/69 (87) 120/58 (78) 186/95 Pulse Ox 93 93 95 O2 Delivery Room Air Room Air Room Air O2 Flow Rate 1.0 05/01/19 05/01/19 05/01/19 05/01/19 17:27 19:00 20:00 20:09 Temp 97.5 97.5 Pulse 55 59 Resp 18 20 B/P (MAP) 115/68 111/65 (80) Pulse Ox 95 O2 Delivery Room Air Room Air Room Air 05/01/19 05/01/19 05/01/19 05/02/19 20:39 21:00 22:22 03:00 Temp 98.0 99.7 98.0 99.7 Pulse 53 55 Resp 18 B/P (MAP) 112/70 (84) 157/84 (108) Pulse Ox 92 O2 Delivery Room Air Room Air Room Air Room Air 05/02/19 05/02/19 05/02/19 05/02/19 04:48 05:31 06:25 08:00 Temp 97.4 97.4 Pulse 54 57 B/P (MAP) 133/74 (93) 133/74 Pulse Ox 94 O2 Delivery Room Air Room Air Room Air 05/02/19 09:10 Pulse 57 B/P (MAP) 133/74 Intake and Output 05/01/19 05/01/19 05/02/19 15:00 23:00 07:00 Intake Total 150 ml Output Total 400 ml Balance -400 ml 150 ml [email or web address] MD May 02, 2019 10:54
[2019-05-02] MEDS ORDERED: diphenhydrAMINE HCL 25 MG CAPSULE PO PRN (12:45)
[2019-05-02] MEDS: NITROGLYCERIN SUBLINGUAL 0.4 MG BOTTLE OF 25. SL PRN ×2 (15:51→19:30)
[2019-05-02] MEDS: LORazepam 0.5 MG TABLET PO PRN (16:53)
[2019-05-02] MEDS: ATORVASTATIN CALCIUM 40 MG TABLET. PO SCH (21:03)
[2019-05-03] VITALS (15 sets, daily range): BP systolic 113–190; BP diastolic 63–94
[2019-05-03] MEDS: NITROGLYCERIN SUBLINGUAL 0.4 MG BOTTLE OF 25. SL PRN (01:08)
[2019-05-03] MEDS: MORPHINE SULFATE 2 MG/ML VIAL. IV PRN (01:12)
[2019-05-03] MEDS: LEVOTHYROXINE 25 MCG TABLET. PO SCH (06:00)
[2019-05-03] MEDS: ASPIRIN ENTERIC COATED 81 MG TABLET.DR. PO SCH (08:12)
[2019-05-03] MEDS: amLODIPine BESYLATE 10 MG TABLET PO SCH (08:12)
[2019-05-03] MEDS: FOLIC ACID 1 MG TABLET. PO SCH (08:12)
[2019-05-03] MEDS: CHLORTHALIDONE 25 MG TABLET. PO SCH (08:13)
[2019-05-03] MEDS: THIAMINE 100 MG TABLET. PO SCH (08:13)
[2019-05-03] MEDS: PANTOPRAZOLE 40 MG TABLET.DR. PO SCH (08:13)
[2019-05-03] MEDS: CARVEDILOL 6.25 MG TABLET. PO SCH ×2 (08:14→18:10)
[2019-05-03] MEDS: MULTIVITAMIN with MINERAL TABLET. PO SCH (08:14)
[2019-05-03] MEDS: IPRATRPIUM/ALBUTEROL 0.5/2.5MG 3 ML NEBU. NEB SCH ×4 (08:34→20:49)
--- NOTE | 2019-05-03 10:29 | PDOC ---
PROGRESS NOTES History of Present Illness History of Present Illness VTE Prophylaxis Ordered VTE Prophylaxis Devices: No VTE Pharmacological Prophylaxi: Yes Assessment/Plan Assessment/Plan Impression: Chest pain, UNSTABLE ANGINA PERSISTS ALCOHOL ABUSE HX Smoking addiction/ TOBACCO ABUSE Hypothyroidism Accelerated hypertension elevated troponin i family hx premature CAD HYPERLIPIDEMIA ADMITTED IV BP CONTROL Serial troponin i consult cardiology smoking cessation education provided heparin drip dvt prophylaxis ALCOHOL WITHDRAWAL precautions LIPITOR RX cardiac catheterization on Tuesday 05/02 d/w RN , FAMILY IN ROOM 05/02 36 MIN pt exam, chart review, > 50% of time spent with exam, chart review, pt care coordination Vitals Vitals Vital Signs Date Time Temp Pulse Resp B/P (MAP) Pulse Ox O2 Delivery O2 Flow Rate FiO2 05/03/19 08:35 95 Room Air 05/03/19 08:14 65 157/86 05/03/19 07:20 97.3 18 97.3 05/02/19 13:36 1.0 Physical Exam General: Alert, Oriented X3, Cooperative, No acute distress Heart: Regular rate (SR), Normal S1, Normal S2, Other (2/6 systolic murmur to LLS border) Lungs: Clear Abdomen: Normal bowel sounds, Soft, No tenderness Extremities: No cyanosis, No edema Skin: No breakdown, No significant lesion Assessment and Plan Assessmemt and Plan Problems Medical Problems: (1) Accelerated hypertension Status: Acute (2) Chest pain Status: Acute (3) Hypothyroidism Status: Acute (4) Smoking addiction Status: Acute Comment Review of Relevant I have reviewed the following items britney (where applicable) has been applied. Labs Laboratory Tests Test 05/02/19 04:30 White Blood Count 7.2 x10^3/uL (4.0-11.0) Red Blood Count 4.53 x10^6/uL (3.50-5.40) Hemoglobin 12.2 g/dL (12.0-15.5) Hematocrit 36.7 % (36.0-47.0) Mean Corpuscular Volume 81 fL (79-100) Mean Corpuscular Hemoglobin 27 pg (25-35) Mean Corpuscular Hemoglobin Concent 33 g/dL (31-37) Red Cell Distribution Width 17.4 % (11.5-14.5) Platelet Count 284 x10^3/uL (140-400) Medications Current Medications Aspirin (Agustin Aspirin) 325 mg 1X ONCE PO Last administered on 04/29/19at 14:32; Start 04/29/19 at 14:30; Stop 04/29/19 at 14:32; Status DC Nitroglycerin (Nitrostat) 0.4 mg PRN Q5MIN PRN SL CP RATING > 1/10 Last administered on 04/29/19at 14:33; Start 04/29/19 at 14:30; Stop 04/29/19 at 15:58; Status DC Morphine Sulfate (Morphine Sulfate) 4 mg PRN Q15MIN PRN IV/SQ PAIN GREATER THAN 3/10; Start 04/29/19 at 14:30; Stop 04/29/19 at 15:58; Status DC Famotidine (Pepcid Vial) 20 mg 1X ONCE IVP Last administered on 04/29/19at 14:32; Start 04/29/19 at 14:30; Stop 04/29/19 at 14:32; Status DC Labetalol HCl (Normodyne Iv Push) 10 mg 1X ONCE IVP Last administered on 04/29/19at 14:51; Start 04/29/19 at 15:00; Stop 04/29/19 at 15:01; Status DC Clonidine HCl (Catapres) 0.2 mg 1X ONCE PO Last administered on 04/29/19at 1 4:50; Start 04/29/19 at 15:00; Stop 04/29/19 at 15:01; Status DC Ondansetron HCl (Zofran) 4 mg PRN Q8HRS PRN IV NAUSEA/VOMITING; Start 04/29/19 at 16:00; Stop 04/30/19 at 10:29; Status DC Morphine Sulfate (Morphine Sulfate) 2 mg PRN Q2HR PRN IV PAIN Last administered on 04/30/19at 12:06; Start 04/29/19 at 16:00; Stop 04/30/19 at 15:59; Status DC Nitroglycerin (Nitrostat) 0.4 mg PRN Q5MIN PRN SL CHEST PAIN Last administered on 04/30/19at 14:08; Start 04/29/19 at 16:00; Stop 04/30/19 at 15:59; Status DC Nicotine (Nicoderm Cq 21mg) 1 patch DAILY STAT TD ; Start 04/29/19 at 15:52; Stop 04/29/19 at 15:57; Status DC Heparin Sodium/ Dextrose 250 ml @ 0 mls/hr CONT PRN IV PER PROTOCOL Last administered on 04/29/19at 19:12; Start 04/29/19 at 18:45 Heparin Sodium (Porcine) (Heparin Sodium) 1,700 unit PRN Q6HRS PRN IV FOR UFH LEVEL LESS THAN 0.2 Last administered on 04/30/19at 05:34; Start 04/29/19 at 18:45 Multivitamins (Thera M Plus) 1 tab DAILY PO Last administered on 05/03/19at 08:14; Start 04/29/19 at 21:00 Folic Acid (Folic Acid) 1 mg DAILY PO Last administered on 05/03/19at 08:12; Start 04/29/19 at 21:00 Thiamine Mononitrate (Vitamin B-1) 100 mg DAILY PO Last administered on 05/03/19at 08:13; Start 04/29/19 at 21:00 Thiamine HCl 100 mg/Dextrose 51 ml @ 100 mls/hr DAILY IV ; Start 05/04/19 at 09:00; Stop 05/08/19 at 09:31; Status UNV Lorazepam (Ativan) 4 mg PRN Q1HR PRN PO For CIWA 8-14; Start 04/29/19 at 20:45 Lorazepam (Ativan) 8 mg PRN Q1HR PRN PO For CIWA 15 or greater; Start 04/29/19 at 20:45 Lorazepam (Ativan Inj) 2 mg PRN Q1HR PRN IV For CIWA 8-14; Start 04/29/19 at 20:45 Lorazepam (Ativan Inj) 4 mg PRN Q1HR PRN IV For CIWA 15 or greater; Start 04/29/19 at 20:45 Haloperidol Lactate (Haldol Inj) 5 mg PRN Q4HRS PRN IVP Hallucinatns,Confusn,Delirium; Start 04/29/19 at 20:45 Lorazepam (Ativan Inj) 2 mg PRN Q15MIN PRN IV SEE COMMENTS; Start 04/29/19 at 20:45; Status UNV Lorazepam (Ativan Inj) 4 mg PRN Q15MIN PRN IV SEE COMMENTS; Start 04/29/19 at 20:45; Status UNV Sodium Chloride (Normal Saline Flush) 3 ml QSHIFT PRN IV AFTER MEDS AND BLOOD DRAWS; Start 04/29/19 at 20:45 Ondansetron HCl (Zofran) 4 mg PRN Q4HRS PRN IV NAUSEA/VOMITING Last administered on 04/30/19at 17:47; Start 04/29/19 at 20:45 Acetaminophen (Tylenol) 650 mg PRN Q4HRS PRN PO TEMP OVER 100.4F OR MILD PAIN; Start 04/29/19 at 20:45 Al Hydroxide/Mg Hydroxide (Mylanta Plus Xs) 30 ml PRN DAILY PRN PO HEARTBURN / GAS; Start 04/29/19 at 20:45 Sodium Monofluorophosphate (Fleet Adult) 133 ml PRN DAILY PRN TN CONSTIPATION; Start 04/29/19 at 20:45 Docusate Sodium (Colace) 100 mg PRN BID PRN PO CONSTIPATION Last administered on 05/02/19at 21:10; Start 04/29/19 at 20:45 Albuterol/ Ipratropium (Duoneb) 3 ml Q4HRS NEB ; Start 04/30/19 at 00:00; Stop 04/30/19 at 00:24; Status DC Guaifenesin (Robitussin) 200 mg PRN Q4HRS PRN PO COUGH; Start 04/29/19 at 20:45 Lorazepam (Ativan) 0.5 mg PRN Q4HRS PRN PO ANXIETY / AGITATION Last a dministered on 05/02/19at 16:53; Start 04/29/19 at 20:45 Pantoprazole Sodium (PROTONIX VIAL for IV PUSH) 40 mg DAILYAC IVP Last a dministered on 04/30/19at 07:53; Start 04/30/19 at 07:30; Stop 04/30/19 at 10:28; Status DC Levothyroxine Sodium (Synthroid) 25 mcg DAILY06 PO Last administered on 05/02/19at 04:56; Start 04/30/19 at 06:00 Calcium Carbonate/ Glycine (Tums) 500 mg PRN Q2HRS PRN PO INDIGESTION Last administered on 04/30/19at 07:52; Start 04/29/19 at 22:45 Albuterol/ Ipratropium (Duoneb) 3 ml RTQID NEB Last administered on 3/2/20at 08:34; Start 04/30/19 at 08:00 Info (Anti-Coagulation Monitoring By Pharmacy) 1 each PRN DAILY PRN MC SEE COMMENTS Last administered on 04/30/19at 07:49; Start 04/30/19 at 07:45 Amlodipine Besylate (Norvasc) 10 mg DAILY PO Last administered on 05/03/19 08:12; Start 04/30/19 at 09:00 Hydralazine HCl (Apresoline Inj) 10 mg PRN Q6HRS PRN IVP SBP > 180; Start 04/30/19 at 09:00 Atorvastatin Calcium (Lipitor) 40 mg QHS PO Last administered on 05/02/19 21:03; Start 04/30/19 at 21:00 Carvedilol (Coreg) 6.25 mg BIDWMEALS PO Last administered on 05/03/19 08:14; Start 04/30/19 at 12:00 Pantoprazole Sodium (Protonix) 40 mg 1X ONCE PO Last administered on 04/30/19 08:00; Start 04/30/19 at 10:30; Stop 04/30/19 at 10:31; Status DC Pantoprazole Sodium (Protonix) 40 mg DAILYAC PO Last administered on 05/03/19 08:13; Start 05/01/19 at 07:30 Aspirin (Ecotrin) 81 mg DAILYWBKFT PO Last administered on 05/03/19 08:12; Start 04/30/19 at 12:00 Atorvastatin Calcium (Lipitor) 40 mg QHS PO ; Start 04/30/19 at 21:00; Status UNV Chlorthalidone (Thalitone) 25 mg DAILY PO Last administered on 05/03/19 08:13; Start 04/30/19 at 12:00 Multi-Ingredient Mouthwash/Gargle (Gi Cocktail) 20 ml PRN QID PRN PO CHEST PAIN Last administered on 04/30/19 20:27; Start 04/30/19 at 20:15 Morphine Sulfate (Morphine Sulfate) 2 mg PRN Q4HRS PRN IV SEVERE PAIN 7-10 Last administered on 05/03/19 01:12; Start 04/30/19 at 23:15 Nitroglycerin (Nitrostat) 0.4 mg PRN Q5MIN PRN SL CHEST PAIN Last administered on 05/03/19at 01:08; Start 04/30/19 at 23:15 Diphenhydramine HCl (Benadryl) 25 mg PRN Q6HRS PRN PO ITCHING Last administered on 05/02/19at 13:05; Start 05/02/19 at 12:45 Vitals/I & O Vital Sign - Last 24 Hours 05/02/19 05/02/19 05/02/19 05/02/19 11:00 11:48 13:06 13:36 Temp 97.2 97.2 Pulse 58 Resp 18 18 B/P (MAP) 133/76 (95) Pulse Ox 92 94 94 94 O2 Delivery Room Air Room Air Room Air Room Air O2 Flow Rate 1.0 1.0 05/02/19 05/02/19 05/02/19 05/02/19 15:03 15:17 15:51 16:52 Temp 98.0 98.0 Pulse 63 68 Resp 18 B/P (MAP) 133/76 (95) 133/76 152/78 Pulse Ox 91 94 O2 Delivery Room Air Room Air 05/02/19 05/02/19 05/02/19 05/02/19 19:28 19:30 19:33 19:40 Temp 97.7 97.7 Pulse 65 65 66 62 Resp 20 B/P (MAP) 203/101 (135) 203/101 133/84 (100) 133/84 (100) Pulse Ox 93 O2 Delivery Room Air 05/02/19 05/02/19 05/02/19 05/03/19 20:00 20:21 23:20 01:08 Temp 98.0 98.0 Pulse 65 58 Resp 18 B/P (MAP) 141/81 (101) 190/94 Pulse Ox 94 93 O2 Delivery Room Air Room Air Room Air 05/03/19 05/03/19 05/03/19 05/03/19 01:12 01:13 01:18 01:42 Pulse 56 64 Resp 18 18 B/P (MAP) 190/94 (126) 113/70 (84) Pulse Ox 93 93 O2 Delivery Room Air Room Air 05/03/19 05/03/19 05/03/19 05/03/19 03:15 07:20 08:12 08:14 Temp 97.7 97.3 97.7 97.3 Pulse 57 65 65 65 Resp 18 18 B/P (MAP) 146/87 (106) 157/86 (109) 157/86 157/86 Pulse Ox 93 95 O2 Delivery Room Air Room Air 05/03/19 05/03/19 08:30 08:35 Pulse Ox 95 O2 Delivery Room Air Room Air Intake and Output 05/02/19 05/02/19 05/03/19 15:00 23:00 07:00 Intake Total 360 ml Output Total 400 ml Balance -400 ml 360 ml YOBANI SCRUGGS MD May 03, 2019 10:29
[2019-05-03] MEDS ORDERED: LIDOCAINE 1% PF 2 ML VIAL. ONE (15:55)
[2019-05-03] MEDS ORDERED: HEPARIN for ARTERIAL LINE 1,500 ML ONE (15:55)
[2019-05-03] MEDS ORDERED: IODIXANOL 320 MG/ML 100 ML VIAL. ONE (15:55)
[2019-05-03] MEDS ORDERED: MIDAZOLAM HCL/PF 5 MG/5 ML VIAL. ONE (16:02)
[2019-05-03] MEDS ORDERED: fentaNYL PF VIAL 250 MCG/5 ML VIAL ONE (16:02)
[2019-05-03] MEDS ORDERED: VERAPAMIL 5 MG/2 ML VIAL. ONE (16:02)
[2019-05-03] MEDS ORDERED: HEPARIN for IV BOLUS 10,000 UNIT/10 ML VIAL. ONE (16:02)
[2019-05-03] MEDS ORDERED: NITROGLYCERIN 200 MCG/2 ML SYRINGE FOR CATH/VASC LAB. ONE ×4 (16:03→17:07)
[2019-05-03] MEDS ORDERED: IODIXANOL 320 MG/ML 100 ML VIAL. IART ONE (16:15)
[2019-05-03] MEDS ORDERED: LIDOCAINE 1% PF 2 ML VIAL. INJ ONE (16:15)
[2019-05-03] MEDS ORDERED: HEPARIN for IV BOLUS 10,000 UNIT/10 ML VIAL. IART ONE (16:15)
[2019-05-03] MEDS ORDERED: NITROGLYCERIN 200 MCG/2 ML SYRINGE FOR CATH/VASC LAB. IART ONE ×5 (16:15→17:15)
[2019-05-03] MEDS ORDERED: VERAPAMIL 5 MG/2 ML VIAL. IART ONE (16:15)
[2019-05-03] MEDS ORDERED: MIDAZOLAM HCL/PF 2 MG/2 ML VIAL. IV ONE (16:15)
[2019-05-03] MEDS ORDERED: fentaNYL PF VIAL 100 MCG/2 ML VIAL IV ONE (16:15)
[2019-05-03] MEDS ORDERED: HEPARIN for IV BOLUS 10,000 UNIT/10 ML VIAL. IV ONE (16:45)
[2019-05-03] MEDS ORDERED: TIROFIBAN 5MG -0.9% NS 100 ML IV ONE (16:53)
[2019-05-03] MEDS ORDERED: TIROFIBAN 5MG -0.9% NS 100 ML IV PRN (17:00)
[2019-05-03] MEDS ORDERED: fentaNYL PF VIAL 250 MCG/5 ML VIAL IV ONE (17:30)
[2019-05-03] MEDS ORDERED: MIDAZOLAM HCL/PF 5 MG/5 ML VIAL. IV ONE (17:30)
[2019-05-03] MEDS ORDERED: PRASUGREL 10 MG TABLET. PO ONE (17:30)
[2019-05-03] MEDS ORDERED: PRASUGREL 10 MG TABLET. ONE (17:36)
[2019-05-03] MEDS: ATORVASTATIN CALCIUM 40 MG TABLET. PO SCH (20:38)
[2019-05-03] MEDS: LORazepam 0.5 MG TABLET PO PRN (20:42)
[2019-05-04 02:35] VITALS: BP 120/74
[2019-05-04] MEDS: LEVOTHYROXINE 25 MCG TABLET. PO SCH (05:40)
[2019-05-04 06:18] LABS: HEMATOCRIT 33.2 % (36.0-47.0); RED BLOOD COUNT 4.12 x10^6/uL (3.50-5.40); RED CELL DISTRIBUTION WIDTH 17.3 % (11.5-14.5); WHITE BLOOD COUNT 7.4 x10^3/uL (4.0-11.0)
[2019-05-04] MEDS: IPRATRPIUM/ALBUTEROL 0.5/2.5MG 3 ML NEBU. NEB SCH ×2 (07:16→11:19)
[2019-05-04 07:19] VITALS: BP 125/82
[2019-05-04] MEDS: amLODIPine BESYLATE 10 MG TABLET PO SCH (08:54)
[2019-05-04] MEDS: ASPIRIN ENTERIC COATED 81 MG TABLET.DR. PO SCH (08:55)
[2019-05-04] MEDS: THIAMINE 100 MG TABLET. PO SCH (08:55)
[2019-05-04] MEDS: FOLIC ACID 1 MG TABLET. PO SCH (08:55)
[2019-05-04] MEDS: MULTIVITAMIN with MINERAL TABLET. PO SCH (08:55)
[2019-05-04] MEDS: CARVEDILOL 6.25 MG TABLET. PO SCH (08:55)
[2019-05-04] MEDS: PANTOPRAZOLE 40 MG TABLET.DR. PO SCH (08:56)
[2019-05-04] MEDS: CHLORTHALIDONE 25 MG TABLET. PO SCH (08:56)
[2019-05-04] MEDS ORDERED: THIAMINE INJ 100 MG in IV DEXTROSE 5% 50 ML IV SCH (09:00)
[2019-05-04 10:23] VITALS: BP 139/87
--- NOTE | 2019-05-04 10:44 | PDOC ---
CARDIO Progress Notes Date and Time Date of Service 05/04/2019 Time of Evaluation 1010 Subjective Subjective: No Chest Pain, No shortness of breath, No Palpitations Vitals Vitals Vital Signs Date Time Temp Pulse Resp B/P (MAP) Pulse Ox O2 Delivery O2 Flow Rate FiO2 05/04/19 10:23 97.5 70 18 139/87 (104) 97 Room Air 97.5 05/03/19 17:29 2.0 Weight Weight [ ] Input and Output Intake and Output Intake and Output 05/04/19 07:00 Intake Total 580 ml Balance 580 ml Intake Oral 580 ml # Voids 5 Laboratory Labs Laboratory Tests Test 05/04/19 04:53 White Blood Count 7.4 x10^3/uL (4.0-11.0) Red Blood Count 4.12 x10^6/uL (3.50-5.40) Hemoglobin 11.0 g/dL (12.0-15.5) Hematocrit 33.2 % (36.0-47.0) Mean Corpuscular Volume 81 fL (79-100) Mean Corpuscular Hemoglobin 27 pg (25-35) Mean Corpuscular Hemoglobin Concent 33 g/dL (31-37) Red Cell Distribution Width 17.3 % (11.5-14.5) Platelet Count 274 x10^3/uL (140-400) Physical Exam HEENT: Neck Supple W Full Motion Chest: Symmetric LUNGS: Clear to Auscultation Heart: S1S2, RRR (SR) Abdomen: Soft N/T Extremities: No Edema, No Calf Tenderness Neurology: alert, oriented, follow commands Other Exams right wrist arteriotomy site intact, no erythema, swelling, neurovascular status to right hand intact. Assessment Assessment 1. Chest pain: UA features. S/P PCI/SOO to PDA 2. Malignant HTN: much better controlled. EF and WM nml 3. Hypothyroidism: 33 TSH, now on replacement. 4. HLP 5. Tobaccoism 6. ETOH misuse: 2-3 beers daily 7. GERD: PPI 8. CAD; as noted above 9. Asymptomatic SB: lowest in the upper 40s no pauses. Stable. SR 50-60s 10. 1 brief bout of PSVT: likely from reperfusion Recommendations 1. ASA/effient 2. Smoking cessation and curbing ETOH use. Dietitian consult 3. Secondary prevention measures. Continue with current BP regimen. DASH diet. 4. Cardiac rehab. 5. BMP and Mg and will replace K and Mg as warranted. 6. Follow up as scheduled in office. JACKELYN RANDLE APRN May 04, 2019 10:44
[2019-05-04 10:55] LABS: CALCIUM 9.1 mg/dL (8.5-10.1); CREATININE 0.9 mg/dL (0.6-1.0); GFR 65.5; MAGNESIUM 2.2 mg/dL (1.8-2.4); POTASSIUM 3.6 mmol/L (3.5-5.1)
--- NOTE | 2019-05-04 11:02 | CARD ---
MR#: [id number] Date of Study: 05/03/2019 Ordering Physician: ELLEN NGUYEN, Referring Physician: ELLEN NGUYEN, Tech: RT Peter (R) ROB APPROVED REPORT Technologist: Edwina Cuello RT (R) ROB Nurse: Procedure(s) performed: Crystal Leary RN Fluoro Time: 12.3 min Dose: 75 Gycm2 Contrast: 85ml Moderate Sedation:60 minutes LHC, Coronary angiography Complex PCI of the RCA, PDA and RPL HISTORY The patient is a 53 year-old female with a history of : hypertension, dyslipidemia. INDICATION The indication(s) include : unstable angina . CS Clinical Frailty Scale [facility] Clinical Frailty Scale: Moderately Frail Heart Failure Heart Failure: Yes If Yes, Newly Diagnosed: Yes If Yes, HF Type: Diastolic If Yes, NYHA Class: Class II PROCEDURE NARRATIVE INFORMED CONSENT: After explaining the risks and benefits of the procedure and alternatives, informed consent was obtained. The patient was brought electively to the cardiac catheterization lab. A timeout was performed confi rming the patient's name, date of , procedure, and site of procedure. All necessary personnel w ere wearing the appropriate protective equipment and radiation monitor devices. (See nursing notes for medications administered). ACCESS: The right wrist was sterilely prepped and draped in the usual fashion. The right wrist was infiltrat ed with 1 mL of 2% lidocaine for subcutaneous anesthesia. A 6 Spanish Terumo glide sheath was inserte d into the right radial artery without difficulty. CORONARY ANGIOGRAPHY: Right and left coronary angiography was performed using a 6Fr TIG 4.0 catheter. Left ventricular en d diastolic pressure was obtained with a JR4 catheter and pullback was performed. All catheter excha nges and advancements were performed over a guidewire. FINDINGS: HEMODYNAMICS: LVEDP 15 mm Hg No gradient on LV to aortic pullback. AO: 128/78 LEFT VENTRICULOGRAM: Deferred due to renal insufficiency. CORONARY ANGIOGRAPHY: LM is a large caliber vessel with normal angiographic appearance. LAD is a large caliber vessel with normal angiographic appearance. Ramus is a moderate caliber vessel with normal angiographic apeparance. LCx is a moderate caliber non-dominant vessel with normal angiographic appearance. OM1 is a moderate caliber vessel with normal angiographic appearance. RCA is a large caliber dominant vessel with a mid 40-50% stenosis followed by a distal bifurcation 90 % stenosis involving the RPDA and RPL RPDA is a moderate caliber vessel with a proximal 70% stenosis. RPL is a moderate caliber vessel with an ostial 70% stenosis. INTERVENTIONAL TECHNIQUE: PCI OF THE RCA/RPDA/RPL Heparin and Tirofiban were used for anticoagulation. Through a 6Fr JR4 guide catheter, a 0.014'' Prow ater wire was placed in the distal PDA. Next, balloon angioplasty was performed with a Trek 2.5/12 mm balloon. The lesion was then stented with a Resolute 3.0/30 mm SOO at nominal pressures. Then the RP L was wired with a second prowater wire and the stent struts into the RPL were dilated with Trek 2.5/ 8 mm balloon at 12 mariza. The proximal half of the stent was then post-dilated with a Trek NC 3.5 mm ba lloon at 12 mariza. Final angiography demonstrated excellent stent expansion with KHOI 3 flow in the RPD A and RPL. Due to KHOI 3 flow in the RPDA, further intervention was deferred to limit overlapping izaiah nts which would increase risk of stenosis/thrombosis. The patient received Prasugrel 60mg at case completion. CLOSURE: At case completion the right radial sheath was removed and a Terumo radial band was applied with 13 m l of air. COMPLICATIONS: The patient tolerated the procedure well and there were no immediate complications. KHOI Flow KHOI Flow (Pre-Intervention): KHOI-3 KHOI Flow (Post-Intervention): KHOI-3 KHOI Flow KHOI Flow (Pre-Intervention): KHOI-3 KHOI Flow (Post-Intervention): KHOI-3 Conclusion 1. Normal left sided filling pressures. 2. One vessel CAD 3. Successful PCI of the RCA with implantation of a Resolute 3.0/30 SOO, post-dilated with a 3.5mm ba lloon. Recommendations ASA 81mg daily Prasugrel 10mg daily High dose statin therapy Cardiac rehab Signed by : Satnam Morales, Electronically Approved : 05/04/2019 11:01:32
--- NOTE | 2019-05-04 11:04 | PDOC ---
PROGRESS NOTES History of Present Illness History of Present Illness VTE Prophylaxis Ordered VTE Prophylaxis Devices: No VTE Pharmacological Prophylaxi: Yes DISCHARGE DX ======== Assessment/Plan Impression: Chest pain, UNSTABLE ANGINA S/P PCI/SOO to PDA Malignant HTN: much better controlled. EF and WM nml ALCOHOL ABUSE HX Smoking addiction/ TOBACCO ABUSE Hypothyroidism Accelerated hypertension elevated troponin i family hx premature CAD HYPERLIPIDEMIA ADMITTED IV BP CONTROL Serial troponin i consult cardiology smoking cessation education provided heparin drip dvt prophylaxis ALCOHOL WITHDRAWAL precautions LIPITOR RX cardiac catheterization on Tuesday 05/02 NOTED d/w RN , FAMILY IN ROOM 05/03 36 MIN pt exam, chart review D/C PLANNING , > 50% of time spent with exam, chart review, pt care coordination Vitals Vitals Vital Signs Date Time Temp Pulse Resp B/P (MAP) Pulse Ox O2 Delivery O2 Flow Rate FiO2 05/04/19 10:23 97.5 70 18 139/87 (104) 97 Room Air 97.5 05/03/19 17:29 2.0 Physical Exam General: Alert, Oriented X3, Cooperative, No acute distress Heart: Regular rate (SR), Normal S1, Normal S2, Other (2/6 systolic murmur to LLS border) Lungs: Clear Abdomen: Normal bowel sounds, Soft, No tenderness Extremities: No cyanosis, No edema, No tenderness/swelling Skin: No breakdown, No significant lesion Labs LABS Laboratory Tests Test 05/04/19 04:53 White Blood Count 7.4 x10^3/uL (4.0-11.0) Red Blood Count 4.12 x10^6/uL (3.50-5.40) Hemoglobin 11.0 g/dL (12.0-15.5) Hematocrit 33.2 % (36.0-47.0) Mean Corpuscular Volume 81 fL (79-100) Mean Corpuscular Hemoglobin 27 pg (25-35) Mean Corpuscular Hemoglobin Concent 33 g/dL (31-37) Red Cell Distribution Width 17.3 % (11.5-14.5) Platelet Count 274 x10^3/uL (140-400) Sodium Level 137 mmol/L (136-145) Potassium Level 3.6 mmol/L (3.5-5.1) Chloride Level 99 mmol/L (98-107) Carbon Dioxide Level 26 mmol/L (21-32) Anion Gap 12 (6-14) Blood Urea Nitrogen 18 mg/dL (7-20) Creatinine 0.9 mg/dL (0.6-1.0) Estimated GFR (Cockcroft-Gault) 65.5 Glucose Level 98 mg/dL (70-99) Calcium Level 9.1 mg/dL (8.5-10.1) Magnesium Level 2.2 mg/dL (1.8-2.4) Assessment and Plan Assessmemt and Plan Problems Medical Problems: (1) Accelerated hypertension Status: Acute (2) Chest pain Status: Acute (3) Hypothyroidism Status: Acute (4) Smoking addiction Status: Acute Comment Review of Relevant I have reviewed the following items britney (where applicable) has been applied. Labs Laboratory Tests Test 05/04/19 04:53 White Blood Count 7.4 x10^3/uL (4.0-11.0) Red Blood Count 4.12 x10^6/uL (3.50-5.40) Hemoglobin 11.0 g/dL (12.0-15.5) Hematocrit 33.2 % (36.0-47.0) Mean Corpuscular Volume 81 fL (79-100) Mean Corpuscular Hemoglobin 27 pg (25-35) Mean Corpuscular Hemoglobin Concent 33 g/dL (31-37) Red Cell Distribution Width 17.3 % (11.5-14.5) Platelet Count 274 x10^3/uL (140-400) Sodium Level 137 mmol/L (136-145) Potassium Level 3.6 mmol/L (3.5-5.1) Chloride Level 99 mmol/L (98-107) Carbon Dioxide Level 26 mmol/L (21-32) Anion Gap 12 (6-14) Blood Urea Nitrogen 18 mg/dL (7-20) Creatinine 0.9 mg/dL (0.6-1.0) Estimated GFR (Cockcroft-Gault) 65.5 Glucose Level 98 mg/dL (70-99) Calcium Level 9.1 mg/dL (8.5-10.1) Magnesium Level 2.2 mg/dL (1.8-2.4) Laboratory Tests Test 05/04/19 04:53 White Blood Count 7.4 x10^3/uL (4.0-11.0) Red Blood Count 4.12 x10^6/uL (3.50-5.40) Hemoglobin 11.0 g/dL (12.0-15.5) Hematocrit 33.2 % (36.0-47.0) Mean Corpuscular Volume 81 fL (79-100) Mean Corpuscular Hemoglobin 27 pg (25-35) Mean Corpuscular Hemoglobin Concent 33 g/dL (31-37) Red Cell Distribution Width 17.3 % (11.5-14.5) Platelet Count 274 x10^3/uL (140-400) Sodium Level 137 mmol/L (136-145) Potassium Level 3.6 mmol/L (3.5-5.1) Chloride Level 99 mmol/L (98-107) Carbon Dioxide Level 26 mmol/L (21-32) Anion Gap 12 (6-14) Blood Urea Nitrogen 18 mg/dL (7-20) Creatinine 0.9 mg/dL (0.6-1.0) Estimated GFR (Cockcroft-Gault) 65.5 Glucose Level 98 mg/dL (70-99) Calcium Level 9.1 mg/dL (8.5-10.1) Magnesium Level 2.2 mg/dL (1.8-2.4) Medications Current Medications Aspirin (Jack On Block Aspirin) 325 mg 1X ONCE PO Last administered on 04/29/19at 14:32; Start 04/29/19 at 14:30; Stop 04/29/19 at 14:32; Status DC Nitroglycerin (Nitrostat) 0.4 mg PRN Q5MIN PRN SL CP RATING > 1/10 Last administered on 04/29/19at 14:33; Start 04/29/19 at 14:30; Stop 04/29/19 at 15:58; Status DC Morphine Sulfate (Morphine Sulfate) 4 mg PRN Q15MIN PRN IV/SQ PAIN GREATER THAN 3/10; Start 04/29/19 at 14:30; Stop 04/29/19 at 15:58; Status DC Famotidine (Pepcid Vial) 20 mg 1X ONCE IVP Last administered on 04/29/19at 14:32; Start 04/29/19 at 14:30; Stop 04/29/19 at 14:32; Status DC Labetalol HCl (Normodyne Iv Push) 10 mg 1X ONCE IVP Last administered on 04/29/19at 14:51; Start 04/29/19 at 15:00; Stop 04/29/19 at 15:01; Status DC Clonidine HCl (Catapres) 0.2 mg 1X ONCE PO Last administered on 04/29/19at 14:50; Start 04/29/19 at 15:00; Stop 04/29/19 at 15:01; Status DC Ondansetron HCl (Zofran) 4 mg PRN Q8HRS PRN IV NAUSEA/VOMITING; Start 04/29/19 at 16:00; Stop 04/30/19 at 10:29; Status DC Morphine Sulfate (Morphine Sulfate) 2 mg PRN Q2HR PRN IV PAIN Last administered on 04/30/19at 12:06; Start 04/29/19 at 16:00; Stop 04/30/19 at 15:59; Status DC Nitroglycerin (Nitrostat) 0.4 mg PRN Q5MIN PRN SL CHEST PAIN Last administered on 04/30/19at 14:08; Start 04/29/19 at 16:00; Stop 04/30/19 at 15:59; Status DC Nicotine (Nicoderm Cq 21mg) 1 patch DAILY STAT TD ; Start 04/29/19 at 15:52; Stop 04/29/19 at 15:57; Status DC Heparin Sodium/ Dextrose 250 ml @ 0 mls/hr CONT PRN IV PER PROTOCOL Last administered on 04/29/19at 19:12; Start 04/29/19 at 18:45 Heparin Sodium (Porcine) (Heparin Sodium) 1,700 unit PRN Q6HRS PRN IV FOR UFH LEVEL LESS THAN 0.2 Last administered on 04/30/19at 05:34; Start 04/29/19 at 18:45 Multivitamins (Thera M Plus) 1 tab DAILY PO Last administered on 05/04/19at 08 :55; Start 04/29/19 at 21:00 Folic Acid (Folic Acid) 1 mg DAILY PO Last administered on 05/04/19 08:55; Start 04/29/19 at 21:00 Thiamine Mononitrate (Vitamin B-1) 100 mg DAILY PO Last administered on 05/04/19at 08:55; Start 04/29/19 at 21:00 Thiamine HCl 100 mg/Dextrose 51 ml @ 100 mls/hr DAILY IV ; Start 05/04/19 at 09:00; Stop 05/08/19 at 09:31; Status UNV Lorazepam (Ativan) 4 mg PRN Q1HR PRN PO For CIWA 8-14; Start 04/29/19 at 20:45 Lorazepam (Ativan) 8 mg PRN Q1HR PRN PO For CIWA 15 or greater; Start 04/29/19 at 20:45 Lorazepam (Ativan Inj) 2 mg PRN Q1HR PRN IV For CIWA 8-14; Start 04/29/19 at 20:45 Lorazepam (Ativan Inj) 4 mg PRN Q1HR PRN IV For CIWA 15 or greater; Start 04/29/19 at 20:45 Haloperidol Lactate (Haldol Inj) 5 mg PRN Q4HRS PRN IVP Joshi ucinatns,Confusn,Delirium; Start 04/29/19 at 20:45 Lorazepam (Ativan Inj) 2 mg PRN Q15MIN PRN IV SEE COMMENTS; Start 04/29/19 at 20:45; Status UNV Lorazepam (Ativan Inj) 4 mg PRN Q15MIN PRN IV SEE COMMENTS; Start 04/29/19 at 20:45; Status UNV Sodium Chloride (Normal Saline Flush) 3 ml QSHIFT PRN IV AFTER MEDS AND BLOOD DRAWS; Start 04/29/19 at 20:45 Ondansetron HCl (Zofran) 4 mg PRN Q4HRS PRN IV NAUSEA/VOMITING Last administered on 04/30/19at 17:47; Start 04/29/19 at 20:45 Acetaminophen (Tylenol) 650 mg PRN Q4HRS PRN PO TEMP OVER 100.4F OR MILD PAIN; Start 04/29/19 at 20:45 Al Hydroxide/Mg Hydroxide (Mylanta Plus Xs) 30 ml PRN DAILY PRN PO HEARTBURN / GAS; Start 04/29/19 at 20:45 Sodium Monofluorophosphate (Fleet Adult) 133 ml PRN DAILY PRN [place] CONSTIPATION; Start 04/29/19 at 20:45 Docusate Sodium (Colace) 100 mg PRN BID PRN PO CONSTIPATION Last administered on 05/02/19at 21:10; Start 04/29/19 at 20:45 Albuterol/ Ipratropium (Duoneb) 3 ml Q4HRS NEB ; Start 04/30/19 at 00:00; Stop 04/30/19 at 00:24; Status DC Guaifenesin (Robitussin) 200 mg PRN Q4HRS PRN PO COUGH; Start 04/29/19 at 20:45 Lorazepam (Ativan) 0.5 mg PRN Q4HRS PRN PO ANXIETY / AGITATION Last administered on 05/03/19 20:42; Start 04/29/19 at 20:45 Pantoprazole Sodium (PROTONIX VIAL for IV PUSH) 40 mg DAILYAC IVP Last administered on 04/30/19 07:53; Start 04/30/19 at 07:30; Stop 04/30/19 at 10:28; Status DC Levothyroxine Sodium (Synthroid) 25 mcg DAILY06 PO Last administered on 05/04/19 05:40; Start 04/30/19 at 06:00 Calcium Carbonate/ Glycine (Tums) 500 mg PRN Q2HRS PRN PO INDIGESTION Last administered on 04/30/19 07:52; Start 04/29/19 at 22:45 Albuterol/ Ipratropium (Duoneb) 3 ml RTQID NEB Last administered on 05/04/19 07:16; Start 04/30/19 at 08:00 Info (Anti-Coagulation Monitoring By Pharmacy) 1 each PRN DAILY PRN MC SEE COMMENTS Last administered on 04/30/19 07:49; Start 04/30/19 at 07:45 Amlodipine Besylate (Norvasc) 10 mg DAILY PO Last administered on 05/04/19 08:54; Start 04/30/19 at 09:00 Hydralazine HCl (Apresoline Inj) 10 mg PRN Q6HRS PRN IVP SBP > 180; Start 04/30/19 at 09:00 Atorvastatin Calcium (Lipitor) 40 mg QHS PO Last administered on 05/03/19 20:38; Start 04/30/19 at 21:00 Carvedilol (Coreg) 6.25 mg BIDWMEALS PO Last administered on 05/04/19 08:55; Start 04/30/19 at 12:00 Pantoprazole Sodium (Protonix) 40 mg 1X ONCE PO Last administered on 04/30/19at 08:00; Start 04/30/19 at 10:30; Stop 04/30/19 at 10:31; Status DC Pantoprazole Sodium (Protonix) 40 mg DAILYAC PO Last administered on 05/04/19at 08:56; Start 05/01/19 at 07:30 Aspirin (Ecotrin) 81 mg DAILYWBKFT PO Last administered on 05/04/19at 08:55; Start 04/30/19 at 12:00 Atorvastatin Calcium (Lipitor) 40 mg QHS PO ; Start 04/30/19 at 21:00; Status UNV Chlorthalidone (Thalitone) 25 mg DAILY PO Last administered on 05/04/19at 08:56; Start 04/30/19 at 12:00 Multi-Ingredient Mouthwash/Gargle (Gi Cocktail) 20 ml PRN QID PRN PO CHEST PAIN Last administered on 04/30/19at 20:27; Start 04/30/19 at 20:15 Morphine Sulfate (Morphine Sulfate) 2 mg PRN Q4HRS PRN IV SEVERE PAIN 7-10 Last administered on 05/03/19at 01:12; Start 04/30/19 at 23:15 Nitroglycerin (Nitrostat) 0.4 mg PRN Q5MIN PRN SL CHEST PAIN Last administered on 05/03/19at 01:08; Start 04/30/19 at 23:15 Diphenhydramine HCl (Benadryl) 25 mg PRN Q6HRS PRN PO ITCHING Last administered on 05/02/19at 13:05; Start 05/02/19 at 12:45 Iodixanol (Visipaque 320) 100 ml STK-MED ONCE .ROUTE ; Start 05/03/19 at 15:55; Stop 05/03/19 at 15:55; Status DC Lidocaine HCl (Xylocaine-Mpf 1% 2ml Vial) 2 ml STK-MED ONCE .ROUTE ; Start 05/03/19 at 15:55; Stop 05/03/19 at 15:55; Status DC Heparin Sodium/ Sodium Chloride 1,500 ml @ As Directed STK-MED ONCE .ROUTE ; Start 05/03/19 at 15:55; Stop 05/03/19 at 15:56; Status DC Fentanyl Citrate (Fentanyl 5ml Vial) 250 mcg STK-MED ONCE .ROUTE ; Start 05/03/19 at 16:02; Stop 05/03/19 at 16:02; Status DC Midazolam HCl (Versed) 5 mg STK-MED ONCE .ROUTE ; Start 05/03/19 at 16:02; Stop 05/03/19 at 16:02; Status DC Heparin Sodium (Porcine) (Heparin Sodium) 10,000 unit STK-MED ONCE .ROUTE ; Start 05/03/19 at 16:02; Stop 05/03/19 at 16:03; Status DC Verapamil HCl (Verapamil) 5 mg STK-MED ONCE .ROUTE ; Start 05/03/19 at 16:02; Stop 05/03/19 at 16:03; Status DC Nitroglycerin (Nitroglycerin) 200 mcg STK-MED ONCE .ROUTE ; Start 05/03/19 at 16:03; Stop 05/03/19 at 16:03; Status DC Nitroglycerin (Nitroglycerin) 200 mcg 1X ONCE IART Last administered on 05/03/19at 16:15; Start 05/03/19 at 16:15; Stop 05/03/19 at 16:18; Status DC Verapamil HCl (Verapamil) 2.5 mg 1X ONCE IART Last administered on 05/03/19at 16:15; Start 05/03/19 at 16:15; Stop 05/03/19 at 16:18; Status DC Heparin Sodium (Porcine) (Heparin Sodium) 2,500 unit 1X ONCE IART Last administered on 05/03/19at 16:15; Start 05/03/19 at 16:15; Stop 05/03/19 at 16:18; Status DC Heparin Sodium/ Sodium Chloride (HEPARIN for ARTERIAL LINE FLUSH) 1,000 unit 1X ONCE IART Last administered on 05/03/19at 16:15; Start 05/03/19 at 16:15; Stop 05/03/19 at 16:18; Status DC Heparin Sodium/ Sodium Chloride (HEPARIN for ARTERIAL LINE FLUSH) 1,000 unit 1X ONCE IART Last administered on 05/03/19at 16:15; Start 05/03/19 at 16:15; Stop 05/03/19 at 16:18; Status DC Midazolam HCl (Versed) 2 mg 1X ONCE IV ; Start 05/03/19 at 16:15; Stop 05/03/19 at 16:16; Status Cancel Fentanyl Citrate (Fentanyl 2ml Vial) 100 mcg 1X ONCE IV ; Start 05/03/19 at 16:15; Stop 05/03/19 at 16:16; Status Cancel Iodixanol (Visipaque 320) 100 ml 1X ONCE IART Last administered on 05/03/19at 16:15; Start 05/03/19 at 16:15; Stop 05/03/19 at 16:18; Status DC Lidocaine HCl (Xylocaine-Mpf 1% 2ml Vial) 2 ml 1X ONCE INJ Last administered on 05/03/19at 16:15; Start 05/03/19 at 16:15; Stop 05/03/19 at 16:18; Status DC Heparin Sodium (Porcine) (Heparin Sodium) 3,000 unit 1X ONCE IV Last administered on 05/03/19at 16:45; Start 05/03/19 at 16:45; Stop 05/03/19 at 16:46; Status DC Nitroglycerin (Nitroglycerin) 200 mcg STK-MED ONCE .ROUTE ; Start 05/03/19 at 16:49; Stop 05/03/19 at 16:50; Status DC Nitroglycerin (Nitroglycerin) 200 mcg 1X ONCE IART Last administered on 05/03/19at 17:00; Start 05/03/19 at 17:00; Stop 05/03/19 at 17:01; Status DC Tirofiban/Sodium Chloride 100 ml @ As Directed STK-MED ONCE IV ; Start 05/03/19 at 16:53; Stop 05/03/19 at 16:54; Status DC Nitroglycerin (Nitroglycerin) 200 mcg STK-MED ONCE .ROUTE ; Start 05/03/19 at 16:58; Stop 05/03/19 at 16:58; Status DC Nitroglycerin (Nitroglycerin) 200 mcg 1X ONCE IART Last administered on 05/03/19at 17:00; Start 05/03/19 at 17:00; Stop 05/03/19 at 17:01; Status DC Tirofiban/Sodium Chloride 100 ml @ 0 mls/hr CONT PRN IV PER PROTOCOL Last administered on 05/03/19at 16:56; Start 05/03/19 at 17:00; Stop 05/04/19 at 10:59; Status DC Nitroglycerin (Nitroglycerin) 200 mcg STK-MED ONCE .ROUTE ; Start 05/03/19 at 17:07; Stop 05/03/19 at 17:07; Status DC Nitroglycerin (Nitroglycerin) 200 mcg 1X ONCE IART Last administered on 05/03/19at 17:15; Start 05/03/19 at 17:15; Stop 05/03/19 at 17:16; Status DC Nitroglycerin (Nitroglycerin) 200 mcg 1X ONCE IART Last administered on 05/03/19at 17:15; Start 05/03/19 at 17:15; Stop 05/03/19 at 17:16; Status DC Prasugrel (Effient) 60 mg 1X ONCE PO Last administered on 05/03/19at 17:35; Start 05/03/19 at 17:30; Stop 05/03/19 at 17:31; Status DC Midazolam HCl (Versed) 5 mg 1X ONCE IV Last administered on 05/03/19at 17:29; Start 05/03/19 at 17:30; Stop 05/03/19 at 17:31; Status DC Fentanyl Citrate (Fentanyl 5ml Vial) 250 mcg 1X ONCE IV Last administered on 05/03/19at 17:29; Start 05/03/19 at 17:30; Stop 05/03/19 at 17:31; Status DC Prasugrel (Effient) 10 mg STK-MED ONCE .ROUTE ; Start 05/03/19 at 17:36; Stop 05/03/19 at 17:36; Status DC Prasugrel (Effient) 10 mg DAILYWBKFT PO ; Start 05/04/19 at 12:00 Vitals/I & O Vital Sign - Last 24 Hours 05/03/19 05/03/19 05/03/19 05/03/19 11:58 14:35 15:39 16:15 Temp 97.6 97.6 Pulse 62 70 Resp 18 B/P (MAP) 139/81 (100) Pulse Ox 95 94 94 O2 Delivery Room Air Room Air Room Air 05/03/19 05/03/19 05/03/19 05/03/19 17:29 17:45 17:51 18:06 Pulse 67 64 69 Resp 18 14 B/P (MAP) 123/81 (95) 124/78 (93) Pulse Ox 96 94 O2 Delivery Nasal Cannula Room Air O2 Flow Rate 2.0 05/03/19 05/03/19 05/03/19 3/2/20 18:10 18:15 18:21 18:36 Pulse 67 71 68 B/P (MAP) 124/88 121/84 (96) 120/77 (91) Pulse Ox 94 O2 Delivery Room Air 05/03/19 05/03/19 05/03/19 05/03/19 19:21 19:30 19:51 20:00 Temp 97.7 97.7 Pulse 67 67 62 Resp 18 B/P (MAP) 147/85 (105) 147/85 (105) 126/70 (88) Pulse Ox 96 O2 Delivery Room Air Room Air 05/03/19 05/03/19 05/04/19 05/04/19 20:50 23:00 02:35 07:19 Temp 97.9 97.7 97.7 97.9 97.7 97.7 Pulse 61 57 64 Resp 18 18 18 B/P (MAP) 121/63 (82) 120/74 (89) 125/82 (96) Pulse Ox 95 97 95 96 O2 Delivery Room Air Room Air Room Air Room Air 05/04/19 05/04/19 05/04/19 05/04/19 07:23 08:00 08:54 08:55 Pulse 64 64 B/P (MAP) 125/82 125/82 Pulse Ox 95 O2 Delivery Room Air Room Air 05/04/19 10:23 Temp 97.5 97.5 Pulse 70 Resp 18 B/P (MAP) 139/87 (104) Pulse Ox 97 O2 Delivery Room Air Intake and Output 05/03/19 05/03/19 05/04/19 15:00 23:00 07:00 Intake Total 580 ml Balance 580 ml YOBANI [id number] MD May 04, 2019 11:04
--- NOTE | 2019-05-04 11:07 | PDOC3 ---
Discharge Summary Date of Admission: Apr 29, 2019 Date of Discharge: May 04, 2019 Follow-Up: 3-5 days Admitting Diagnosis comment: DISCHARGE DX ======== Assessment/Plan Impression: Chest pain, UNSTABLE ANGINA S/P PCI/SOO to PDA Malignant HTN: much better controlled. EF and WM nml ALCOHOL ABUSE HX Smoking addiction/ TOBACCO ABUSE Hypothyroidism Accelerated hypertension elevated troponin i family hx premature CAD HYPERLIPIDEMIA ADMITTED IV BP CONTROL Serial troponin i consult cardiology smoking cessation education provided heparin drip dvt prophylaxis ALCOHOL WITHDRAWAL precautions LIPITOR RX cardiac catheterization on Tuesday 05/02 NOTED d/w RN , FAMILY IN ROOM 05/03 36 MIN pt exam, chart review D/C PLANNING , > 50% of time spent with exam, chart review, pt care coordination Vitals Vitals Vital Signs Date Time Temp Pulse Resp B/P (MAP) Pulse Ox O2 Delivery O2 Flow Rate FiO2 05/04/19 10:23 97.5 70 18 139/87 (104) 97 Room Air 97.5 05/03/19 17:29 2.0 Physical Exam General: Alert, Oriented X3, Cooperative, No acute distress Heart: Regular rate (SR), Normal S1, Normal S2, Other (2/6 systolic murmur to LLS border) Lungs: Clear Abdomen: Normal bowel sounds, Soft, No tenderness Extremities: No cyanosis, No edema, No tenderness/swelling Skin: No breakdown, No significant lesion FINAL DIAGNOSIS Problems Medical Problems: (1) Accelerated hypertension Status: Acute (2) Chest pain Status: Acute (3) Hypothyroidism Status: Acute (4) Smoking addiction Status: Acute Brief Hospital Course Ms. Allison is a 53 old [sex] who presented with [UNSTABLE ANGINA ] CONDITION AT DISCHARGE: Improved Discharge Medications Current Medications Aspirin (Agustin Aspirin) 325 mg 1X ONCE PO Last administered on 04/29/19at 14:32; Start 04/29/19 at 14:30; Stop 04/29/19 at 14:32; Status DC Nitroglycerin (Nitrostat) 0.4 mg PRN Q5MIN PRN SL CP RATING > 1/10 Last administered on 04/29/19at 14:33; Start 04/29/19 at 14:30; Stop 04/29/19 at 15:58; Status DC Morphine Sulfate (Morphine Sulfate) 4 mg PRN Q15MIN PRN IV/SQ PAIN GREATER THAN 3/10; Start 04/29/19 at 14:30; Stop 04/29/19 at 15:58; Status DC Famotidine (Pepcid Vial) 20 mg 1X ONCE IVP Last administered on 04/29/19at 14:32; Start 04/29/19 at 14:30; Stop 04/29/19 at 14:32; Status DC Labetalol HCl (Normodyne Iv Push) 10 mg 1X ONCE IVP Last administered on 04/29/19at 14:51; Start 04/29/19 at 15:00; Stop 04/29/19 at 15:01; Status DC Clonidine HCl (Catapres) 0.2 mg 1X ONCE PO Last administered on 04/29/19at 14:50; Start 04/29/19 at 15:00; Stop 04/29/19 at 15:01; Status DC Ondansetron HCl (Zofran) 4 mg PRN Q8HRS PRN IV NAUSEA/VOMITING; Start 04/29/19 at 16:00; Stop 04/30/19 at 10:29; Status DC Morphine Sulfate (Morphine Sulfate) 2 mg PRN Q2HR PRN IV PAIN Last administered on 04/30/19at 12:06; Start 04/29/19 at 16:00; Stop 04/30/19 at 15:59; Status DC Nitroglycerin (Nitrostat) 0.4 mg PRN Q5MIN PRN SL CHEST PAIN Last administered on 04/30/19at 14:08; Start 04/29/19 at 16:00; Stop 04/30/19 at 15:59; Status DC Nicotine (Nicoderm Cq 21mg) 1 patch DAILY STAT TD ; Start 04/29/19 at 15:52; Stop 04/29/19 at 15:57; Status DC Heparin Sodium/ Dextrose 250 ml @ 0 mls/hr CONT PRN IV PER PROTOCOL Last administered on 04/29/19at 19:12; Start 04/29/19 at 18:45 Heparin Sodium (Porcine) (Heparin Sodium) 1,700 unit PRN Q6HRS PRN IV FOR UFH LEVEL LESS THAN 0.2 Last administered on 04/30/19at 05:34; Start 04/29/19 at 18:45 Multivitamins (Thera M Plus) 1 tab DAILY PO Last administered on 05/04/19at 08:55; Start 04/29/19 at 21:00 Folic Acid (Folic Acid) 1 mg DAILY PO Last administered on 05/04/19at 08:55; Start 04/29/19 at 21:00 Thiamine Mononitrate (Vitamin B-1) 100 mg DAILY PO Last administered on 05/04/19at 08:55; Start 04/29/19 at 21:00 Thiamine HCl 100 mg/Dextrose 51 ml @ 100 mls/hr DAILY IV ; Start 05/04/19 at 09:00; Stop 05/08/19 at 09:31; Status UNV Lorazepam (Ativan) 4 mg PRN Q1HR PRN PO For CIWA 8-14; Start 04/29/19 at 20:45 Lorazepam (Ativan) 8 mg PRN Q1HR PRN PO For CIWA 15 or greater; Start 04/29/19 at 20:45 Lorazepam (Ativan Inj) 2 mg PRN Q1HR PRN IV For CIWA 8-14; Start 04/29/19 at 20:45 Lorazepam (Ativan Inj) 4 mg PRN Q1HR PRN IV For CIWA 15 or greater; Start 04/29/19 at 20:45 Haloperidol Lactate (Haldol Inj) 5 mg PRN Q4HRS PRN IVP Hallucinatns,Confusn,Delirium; Start 04/29/19 at 20:45 Lorazepam (Ativan Inj) 2 mg PRN Q15MIN PRN IV SEE COMMENTS; Start 04/29/19 at 20:45; Status UNV Lorazepam (Ativan Inj) 4 mg PRN Q15MIN PRN IV SEE COMMENTS; Start 04/29/19 at 20:45; Status UNV Sodium Chloride (Normal Saline Flush) 3 ml QSHIFT PRN IV AFTER MEDS AND BLOOD DRAWS; Start 04/29/19 at 20:45 Ondansetron HCl (Zofran) 4 mg PRN Q4HRS PRN IV NAUSEA/VOMITING Last administered on 04/30/19at 17:47; Start 04/29/19 at 20:45 Acetaminophen (Tylenol) 650 mg PRN Q4HRS PRN PO TEMP OVER 100.4F OR MILD PAIN; Start 04/29/19 at 20:45 Al Hydroxide/Mg Hydroxide (Mylanta Plus Xs) 30 ml PRN DAILY PRN PO HEARTBURN / GAS; Start 04/29/19 at 20:45 Sodium Monofluorophosphate (Fleet Adult) 133 ml PRN DAILY PRN ME CONSTIPATION; Start 04/29/19 at 20:45 Docusate Sodium (Colace) 100 mg PRN BID PRN PO CONSTIPATION Last administered on 05/02/19at 21:10; Start 04/29/19 at 20:45 Albuterol/ Ipratropium (Duoneb) 3 ml Q4HRS NEB ; Start 04/30/19 at 00:00; Stop 04/30/19 at 00:24; Status DC Guaifenesin (Robitussin) 200 mg PRN Q4HRS PRN PO COUGH; Start 04/29/19 at 20:45 Lorazepam (Ativan) 0.5 mg PRN Q4HRS PRN PO ANXIETY / AGITATION Last administered on 05/03/19at 20:42; Start 04/29/19 at 20:45 Pantoprazole Sodium (PROTONIX VIAL for IV PUSH) 40 mg DAILYAC IVP Last administered on 04/30/19at 07:53; Start 04/30/19 at 07:30; Stop 04/30/19 at 10:28; Status DC Levothyroxine Sodium (Synthroid) 25 mcg DAILY06 PO Last administered on 05/04/19 05:40; Start 04/30/19 at 06:00 Calcium Carbonate/ Glycine (Tums) 500 mg PRN Q2HRS PRN PO INDIGESTION Last administered on 04/30/19at 07:52; Start 04/29/19 at 22:45 Albuterol/ Ipratropium (Duoneb) 3 ml RTQID NEB Last administered on 05/04/19at 07:16; Start 04/30/19 at 08:00 Info (Anti-Coagulation Monitoring By Pharmacy) 1 each PRN DAILY PRN MC SEE C OMMENTS Last administered on 04/30/19at 07:49; Start 04/30/19 at 07:45 Amlodipine Besylate (Norvasc) 10 mg DAILY PO Last administered on 05/04/19 08:54; Start 04/30/19 at 09:00 Hydralazine HCl (Apresoline Inj) 10 mg PRN Q6HRS PRN IVP SBP > 180; Start 04/04 10/20 at 09:00 Atorvastatin Calcium (Lipitor) 40 mg QHS PO Last administered on 05/03/19 20:38; Start 04/30/19 at 21:00 Carvedilol (Coreg) 6.25 mg BIDWMEALS PO Last administered on 05/04/19 08:55; Start 04/30/19 at 12:00 Pantoprazole Sodium (Protonix) 40 mg 1X ONCE PO Last administered on 04/30/19 08:00; Start 04/30/19 at 10:30; Stop 04/30/19 at 10:31; Status DC Pantoprazole Sodium (Protonix) 40 mg DAILYAC PO Last administered on 05/04/19 08:56; Start 05/01/19 at 07:30 Aspirin (Ecotrin) 81 mg DAILYWBKFT PO Last administered on 05/04/19 08:55; Start 04/30/19 at 12:00 Atorvastatin Calcium (Lipitor) 40 mg QHS PO ; Start 04/30/19 at 21:00; Status UNV Chlorthalidone (Thalitone) 25 mg DAILY PO Last administered on 05/04/19 08:56; Start 04/30/19 at 12:00 Multi-Ingredient Mouthwash/Gargle (Gi Cocktail) 20 ml PRN QID PRN PO CHEST PAIN Last administered on 04/30/19 20:27; Start 04/30/19 at 20:15 Morphine Sulfate (Morphine Sulfate) 2 mg PRN Q4HRS PRN IV SEVERE PAIN 7-10 Last administered on 05/03/19 01:12; Start 04/30/19 at 23:15 Nitroglycerin (Nitrostat) 0.4 mg PRN Q5MIN PRN SL CHEST PAIN Last administered on 05/03/19 01:08; Start 04/30/19 at 23:15 Diphenhydramine HCl (Benadryl) 25 mg PRN Q6HRS PRN PO ITCHING Last administered on 05/02/19at 13:05; Start 05/02/19 at 12:45 Iodixanol (Visipaque 320) 100 ml STK-MED ONCE .ROUTE ; Start 05/03/19 at 15:55; Stop 05/03/19 at 15:55; Status DC Lidocaine HCl (Xylocaine-Mpf 1% 2ml Vial) 2 ml STK-MED ONCE .ROUTE ; Start 05/03/19 at 15:55; Stop 05/03/19 at 15:55; Status DC Heparin Sodium/ Sodium Chloride 1,500 ml @ As Directed STK-MED ONCE .ROUTE ; Start 05/03/19 at 15:55; Stop 05/03/19 at 15:56; Status DC Fentanyl Citrate (Fentanyl 5ml Vial) 250 mcg STK-MED ONCE .ROUTE ; Start 05/03/19 at 16:02; Stop 05/03/19 at 16:02; Status DC Midazolam HCl (Versed) 5 mg STK-MED ONCE .ROUTE ; Start 05/03/19 at 16:02; Stop 05/03/19 at 16:02; Status DC Heparin Sodium (Porcine) (Heparin Sodium) 10,000 unit STK-MED ONCE .ROUTE ; Start 05/03/19 at 16:02; Stop 05/03/19 at 16:03; Status DC Verapamil HCl (Verapamil) 5 mg STK-MED ONCE .ROUTE ; Start 05/03/19 at 16:02; Stop 05/03/19 at 16:03; Status DC Nitroglycerin (Nitroglycerin) 200 mcg STK-MED ONCE .ROUTE ; Start 05/03/19 at 16:03; Stop 05/03/19 at 16:03; Status DC Nitroglycerin (Nitroglycerin) 200 mcg 1X ONCE IART Last administered on 05/03/19at 16:15; Start 05/03/19 at 16:15; Stop 05/03/19 at 16:18; Status DC Verapamil HCl (Verapamil) 2.5 mg 1X ONCE IART Last administered on 05/03/19at 16:15; Start 05/03/19 at 16:15; Stop 05/03/19 at 16:18; Status DC Heparin Sodium (Porcine) (Heparin Sodium) 2,500 unit 1X ONCE IART Last administered on 05/03/19at 16:15; Start 05/03/19 at 16:15; Stop 05/03/19 at 16:18; Status DC Heparin Sodium/ Sodium Chloride (HEPARIN for ARTERIAL LINE FLUSH) 1,000 unit 1X ONCE IART Last administered on 05/03/19at 16:15; Start 05/03/19 at 16:15; Stop 05/03/19 at 16:18; Status DC Heparin Sodium/ Sodium Chloride (HEPARIN for ARTERIAL LINE FLUSH) 1,000 unit 1X ONCE IART Last administered on 05/03/19at 16:15; Start 05/03/19 at 16:15; Stop 05/03/19 at 16:18; Status DC Midazolam HCl (Versed) 2 mg 1X ONCE IV ; Start 05/03/19 at 16:15; Stop 05/03/19 at 16:16; Status Cancel Fentanyl Citrate (Fentanyl 2ml Vial) 100 mcg 1X ONCE IV ; Start 05/03/19 at 16:15; Stop 05/03/19 at 16:16; Status Cancel Iodixanol (Visipaque 320) 100 ml 1X ONCE IART Last administered on 05/03/19at 16:15; Start 05/03/19 at 16:15; Stop 05/03/19 at 16:18; Status DC Lidocaine HCl (Xylocaine-Mpf 1% 2ml Vial) 2 ml 1X ONCE INJ Last administered on 05/03/19at 16:15; Start 05/03/19 at 16:15; Stop 05/03/19 at 16:18; Status DC Heparin Sodium (Porcine) (Heparin Sodium) 3,000 unit 1X ONCE IV Last administered on 05/03/19at 16:45; Start 05/03/19 at 16:45; Stop 05/03/19 at 16:46; Status DC Nitroglycerin (Nitroglycerin) 200 mcg STK-MED ONCE .ROUTE ; Start 05/03/19 at 16:49; Stop 05/03/19 at 16:50; Status DC Nitroglycerin (Nitroglycerin) 200 mcg 1X ONCE IART Last administered on 05/03/19at 17:00; Start 05/03/19 at 17:00; Stop 05/03/19 at 17:01; Status DC Tirofiban/Sodium Chloride 100 ml @ As Directed STK-MED ONCE IV ; Start 05/03/19 at 16:53; Stop 05/03/19 at 16:54; Status DC Nitroglycerin (Nitroglycerin) 200 mcg STK-MED ONCE .ROUTE ; Start 05/03/19 at 16:58; Stop 05/03/19 at 16:58; Status DC Nitroglycerin (Nitroglycerin) 200 mcg 1X ONCE IART Last administered on 05/03/19at 17:00; Start 05/03/19 at 17:00; Stop 05/03/19 at 17:01; Status DC Tirofiban/Sodium Chloride 100 ml @ 0 mls/hr CONT PRN IV PER PROTOCOL Last administered on 05/03/19at 16:56; Start 05/03/19 at 17:00; Stop 05/04/19 at 10:59; Status DC Nitroglycerin (Nitroglycerin) 200 mcg STK-MED ONCE .ROUTE ; Start 05/03/19 at 17:07; Stop 05/03/19 at 17:07; Status DC Nitroglycerin (Nitroglycerin) 200 mcg 1X ONCE IART Last administered on 05/03/19at 17:15; Start 05/03/19 at 17:15; Stop 05/03/19 at 17:16; Status DC Nitroglycerin (Nitroglycerin) 200 mcg 1X ONCE IART Last administered on 05/03/19at 17:15; Start 05/03/19 at 17:15; Stop 05/03/19 at 17:16; Status DC Prasugrel (Effient) 60 mg 1X ONCE PO Last administered on 05/03/19at 17:35; Start 05/03/19 at 17:30; Stop 05/03/19 at 17:31; Status DC Midazolam HCl (Versed) 5 mg 1X ONCE IV Last administered on 05/03/19at 17:29; Start 05/03/19 at 17:30; Stop 05/03/19 at 17:31; Status DC Fentanyl Citrate (Fentanyl 5ml Vial) 250 mcg 1X ONCE IV Last administered on 05/03/19at 17:29; Start 05/03/19 at 17:30; Stop 05/03/19 at 17:31; Status DC Prasugrel (Effient) 10 mg STK-MED ONCE .ROUTE ; Start 05/03/19 at 17:36; Stop 05/03/19 at 17:36; Status DC Prasugrel (Effient) 10 mg DAILYWBKFT PO ; Start 05/04/19 at 12:00 Vital Signs Vital Signs Date Time Temp Pulse Resp B/P (MAP) Pulse Ox O2 Delivery O2 Flow Rate FiO2 05/04/19 10:23 97.5 70 18 139/87 (104) 97 Room Air 97.5 05/03/19 17:29 2.0 Labs Laboratory Tests Test 05/04/19 04:53 White Blood Count 7.4 x10^3/uL (4.0-11.0) Red Blood Count 4.12 x10^6/uL (3.50-5.40) Hemoglobin 11.0 g/dL (12.0-15.5) Hematocrit 33.2 % (36.0-47.0) Mean Corpuscular Volume 81 fL (79-100) Mean Corpuscular Hemoglobin 27 pg (25-35) Mean Corpuscular Hemoglobin Concent 33 g/dL (31-37) Red Cell Distribution Width 17.3 % (11.5-14.5) Platelet Count 274 x10^3/uL (140-400) Sodium Level 137 mmol/L (136-145) Potassium Level 3.6 mmol/L (3.5-5.1) Chloride Level 99 mmol/L (98-107) Carbon Dioxide Level 26 mmol/L (21-32) Anion Gap 12 (6-14) Blood Urea Nitrogen 18 mg/dL (7-20) Creatinine 0.9 mg/dL (0.6-1.0) Estimated GFR (Cockcroft-Gault) 65.5 Glucose Level 98 mg/dL (70-99) Calcium Level 9.1 mg/dL (8.5-10.1) Magnesium Level 2.2 mg/dL (1.8-2.4) Laboratory Tests Test 05/04/19 04:53 White Blood Count 7.4 x10^3/uL (4.0-11.0) Red Blood Count 4.12 x10^6/uL (3.50-5.40) Hemoglobin 11.0 g/dL (12.0-15.5) Hematocrit 33.2 % (36.0-47.0) Mean Corpuscular Volume 81 fL (79-100) Mean Corpuscular Hemoglobin 27 pg (25-35) Mean Corpuscular Hemoglobin Concent 33 g/dL (31-37) Red Cell Distribution Width 17.3 % (11.5-14.5) Platelet Count 274 x10^3/uL (140-400) Sodium Level 137 mmol/L (136-145) Potassium Level 3.6 mmol/L (3.5-5.1) Chloride Level 99 mmol/L (98-107) Carbon Dioxide Level 26 mmol/L (21-32) Anion Gap 12 (6-14) Blood Urea Nitrogen 18 mg/dL (7-20) Creatinine 0.9 mg/dL (0.6-1.0) Estimated GFR (Cockcroft-Gault) 65.5 Glucose Level 98 mg/dL (70-99) Calcium Level 9.1 mg/dL (8.5-10.1) Magnesium Level 2.2 mg/dL (1.8-2.4) Allergies Allergies Coded Allergies Type Severity Reaction Last Updated Verified No Known Drug Allergies 04/29/19 No Disposition/Orders: D/C to Home YOBANI SCRUGGS MD May 04, 2019 11:07
[2019-05-04] MEDS ORDERED: ASPI-612 PO (11:12)
[2019-05-04] MEDS ORDERED: LEVO25TA55 PO (11:12)
[2019-05-04] MEDS ORDERED: ATOR40TA59 PO (11:12)
[2019-05-04] MEDS ORDERED: DOCU-153 PO (11:12)
[2019-05-04] MEDS ORDERED: CHLO25TA10 PO (11:12)
[2019-05-04] MEDS ORDERED: Folic Acid PO (11:12)
[2019-05-04] MEDS ORDERED: AMLO10TA8 PO (11:12)
[2019-05-04] MEDS ORDERED: PANT40TA77 PO (11:12)
[2019-05-04] MEDS ORDERED: CARV6.2511 PO (11:12)
[2019-05-04] MEDS ORDERED: MULT1TAB90 PO (11:12)
[2019-05-04] MEDS ORDERED: PRAS10TA9 PO (11:12)
[2019-05-04] MEDS ORDERED: THIA100T22 PO (11:12)
--- NOTE | 2019-05-04 11:14 | DISCH ---
DISCHARGE INSTRUCTIONS Condition on Discharge Condition on Discharge: Stable Activity After Discharge Activity Instructions for Disc: Activity as tolerated Lifting Instructions after Dis: No heavy lifting, No pulling or pushing Driving Instructions after Dis: Do not drive today Weight Bearing Status after Di: As tolerated Diet after Discharge Diet after Discharge: Cardiac Checks after Discharge Checks after discharge: Check blood press - daily Contacting the [facility] after DC Call your doctor for: If your condition worsens Warfarin Follow-Up Warfarin Follow UP: SEE PCP SOON, CARDIOLOGY 3-4 WEEKS, NO SMOKING OR DRINKING ALCOHOL YOBANI SCRUGGS MD May 04, 2019 11:14
[2019-05-04] MEDS ORDERED: PRASUGREL 10 MG TABLET. PO SCH (12:00)
== END 2019-05-04 12:15 | disposition home or self-care (01) | DRG 251 ==
LOC: ER 14:00 → ED HOLD 15:30 → 2 NORTH 20:11
PROVIDERS: ADMIT Family Medicine; ATTEND Family Medicine
PROC: 4A023N7 Measurement of Cardiac Sampling and Pressure, Left Heart, Percutaneous Approach (ICD-10-PCS; principal; 2019-05-03)
PROC: 02713ZZ Dilation of Coronary Artery, Two Arteries, Percutaneous Approach (ICD-10-PCS; 2019-05-03)
PROC: B2111ZZ Fluoroscopy of Multiple Coronary Arteries using Low Osmolar Contrast (ICD-10-PCS; 2019-05-03)
PROC: 3E033PZ Introduction of Platelet Inhibitor into Peripheral Vein, Percutaneous Approach (ICD-10-PCS; 2019-05-03)
DX: I25.110 Atherosclerotic heart disease of native coronary artery with unstable angina pectoris (principal); F10.10 Alcohol abuse, uncomplicated; E03.9 Hypothyroidism, unspecified; E78.5 Hyperlipidemia, unspecified; F17.210 Nicotine dependence, cigarettes, uncomplicated; I10 Essential (primary) hypertension; K21.9 Gastro-esophageal reflux disease without esophagitis; Z82.49 Family history of ischemic heart disease and other diseases of the circulatory system; Z98.51 Tubal ligation status; Z98.61 Coronary angioplasty status
CPT/HCPCS: 36415; 70450; 71045; 80048; 80053; 80061; 80307; 81001; 82553; 83036; 83735; 83880; 84443; 84484; 85025; 85027; 85520; 85610; 92921; 92928; 93005; 93306; 93458; 94640; 99152; 99153; 99406; C1725; C1769; C1874; C1887; C1892; C9113; J1644; J2250; J2270; J2405; J3010; J3490; Q9967; G0378; J3246; Q0163